=== PATIENT | female | born 1945 | race African-American/Black ===

== ENCOUNTER 2017-09-29 16:47 | Inpatient (IN) | payer MEDICARE, OTHER ==
[~2017-09-29] VITALS: Ht 152.4 cm; Wt 73.4 kg
[~2017-09-29 16:47] MED LIST: 1-ME1LIQ PO; ARIC5TAB PO; LEXA10TA PO; LISI-587 PO; MACR100C PO; TAB-TAB PO
[2017-09-29 17:14] VITALS: BP 134/64; PULSE 104; RESP 19; O2SAT 97
[2017-09-29] MEDS ORDERED: LATA0.002 EACH EYE (17:39)
[2017-09-29] MEDS ORDERED: MELO7.5T27 PO (17:39)
[2017-09-29] MEDS ORDERED: AMLO10TA2 PO (17:39)
[2017-09-29] MEDS ORDERED: DONE10TA7 PO (17:39)
[2017-09-29] MEDS ORDERED: ESCI20TA PO (17:39)
--- NOTE | 2017-09-29 18:07 | RADRPT ---
EXAM DATE/TIME: 09/29/2017 17:50 [facility] COMPARISON: No previous studies available for comparison. INDICATIONS : Fever and short of breath. MEDICAL HISTORY : None. SURGICAL HISTORY : None. ENCOUNTER: Initial ACUITY: 2 days PAIN SCORE: 0/10 LOCATION: Bilateral chest FINDINGS: Mild cardiomegaly with minimal interstitial prominence. No alveolar consolidation. No pleural effus ion. No pneumothorax.. Osseous structures are intact. CONCLUSION: Possible mild failure without consolidation. Jon Plata MD FACR on September 29, 2017 at 18:04 Board Certified Radiologist. This report was verified electronically.
[2017-09-29 18:20] VITALS: O2SAT 97
--- NOTE | 2017-09-29 18:23 | PD ---
HPI Chief Complaint: Altered Mental Status Time Seen by Provider: 17:13 Travel History International Travel<30 days: No Contact w/Intl Traveler<30days: No Traveled to known affect area: No History of Present Illness HPI This is a 72-year-old female with history of dementia, who presents from home after she was noted to have a fever with decreased mentation. The patient has a software product manager at home who reportedly took her temperature noted to be 102. They gave Tylenol and brought her temperature down to 99.8. The patient has not had any recent URI symptoms. There is no report of urinary symptoms. The patient is unable to give clear history. She knows her name she knows she is at the hospital but does not know the year the day of the week. Reportedly she was at her son's house overnight and when she returned home 2 days when the fever was noted. PFSH Past Medical History Arthritis: Yes Autoimmune Disease: Yes Anxiety: Yes Depression: Yes Cardiovascular Problems: No Diminished Hearing: No Gastrointestinal Disorders: No Hypertension: Yes Implanted Vascular Access Dvce: No Musculoskeletal: Yes Neurologic: Yes Psychiatric: Yes ?: Not Menopausal: Yes Past Surgical History Appendectomy: Yes Gynecologic Surgery: Yes Hysterectomy: Yes Joint Replacement: Yes (R KNEE) Other Surgery: Yes Social History Alcohol Use: No Tobacco Use: No Substance Use: No Allergies-Medications (Allergen,Severity, Reaction): Coded Allergies: No Known Allergies (Verified Adverse Reaction, Unknown, 09/29/17) Reported Meds & Prescriptions Reported Meds & Active Scripts Active Reported Latanoprost Opth Drops (Latanoprost) 0.005% Drops 1 Drop EACH EYE HS Refrigerate until opened. Donepezil 10 Mg Tab 10 Mg PO HS Meloxicam 7.5 Mg Tab 7.5 Mg PO DAILY Escitalopram (Escitalopram Oxalate) 20 Mg Tab 20 Mg PO DAILY Amlodipine (Amlodipine Besylate) 10 Mg Tab 10 Mg PO DAILY Review of Systems ROS Limitations: Altered Mental Status (History of dementia unable to give clear history. Review of systems were from the software product manager and the paramedics.) Except as stated in HPI: all other systems reviewed are Neg General / Constitutional: Positive: Fever Cardiovascular: No: Chest Pain or Discomfort Respiratory: No: Cough, Shortness of Breath Gastrointestinal: No: Nausea, Vomiting, Diarrhea, Abdominal Pain Genitourinary: No: Dysuria, Pelvic Pain Neurologic: Positive: Change in Mentation (Slightly more confused than baseline according to software product manager), No: Weakness, Headache Physical Exam Narrative GENERAL: Well-developed well-nourished female in no acute respiratory distress. SKIN: Focused skin assessment warm/dry. HEAD: Atraumatic. Normocephalic. EYES: No scleral icterus. No injection or drainage. ENT: No nasal bleeding or discharge. Mucous membranes pink and moist. NECK: Trachea midline. Supple. CARDIOVASCULAR: Regular rate and rhythm. No murmur appreciated. RESPIRATORY: No accessory muscle use. Clear to auscultation. Breath sounds equal bilaterally. GASTROINTESTINAL: Abdomen soft, non-tender, nondistended. Hepatic and splenic margins not palpable. MUSCULOSKELETAL: No obvious deformities. No clubbing. No cyanosis. No edema. NEUROLOGICAL: Awake and confused. No obvious cranial nerve deficits. Motor grossly within normal limits. Normal speech. Data Data Last Documented VS Vital Signs Date Time Temp Pulse Resp B/P (MAP) Pulse Ox O2 Delivery O2 Flow Rate FiO2 09/29/17 18:20 97 Room Air 09/29/17 17:14 104 19 Orders Orders Electrocardiogram (09/29/17 17:45) Complete Blood Count With Diff (09/29/17 17:45) Comprehensive Metabolic Panel (09/29/17 17:45) Blood Culture (09/29/17 17:45) Urinalysis - C+S If Indicated (09/29/17 17:45) Influenzae A/B Antigen (09/29/17 17:45) Chest, Single Ap (09/29/17 17:45) Iv Access Insert/Monitor (09/29/17 17:45) Ecg Monitoring (09/29/17 17:45) Oximetry (09/29/17 17:45) Lactic Acid Sepsis Protocol (09/29/17 17:45) Labs Laboratory Tests Test 09/29/17 17:40 White Blood Count 18.4 TH/MM3 Red Blood Count 4.00 MIL/MM3 Hemoglobin 10.9 GM/DL Hematocrit 32.0 % Mean Corpuscular Volume 80.2 FL Mean Corpuscular Hemoglobin 27.3 PG Mean Corpuscular Hemoglobin Concent 34.0 % Red Cell Distribution Width 16.6 % Platelet Count 310 TH/MM3 Mean Platelet Volume 8.3 FL Neutrophils (%) (Auto) 89.8 % Lymphocytes (%) (Auto) 6.6 % Monocytes (%) (Auto) 3.5 % Eosinophils (%) (Auto) 0.0 % Basophils (%) (Auto) 0.1 % Neutrophils # (Auto) 16.5 TH/MM3 Lymphocytes # (Auto) 1.2 TH/MM3 Monocytes # (Auto) 0.7 TH/MM3 Eosinophils # (Auto) 0.0 TH/MM3 Basophils # (Auto) 0.0 TH/MM3 CBC Comment DIFF FINAL Differential Comment Blood Urea Nitrogen 21 MG/DL Creatinine 0.83 MG/DL Random Glucose 126 MG/DL Total Protein 8.7 GM/DL Albumin 2.2 GM/DL Calcium Level 9.0 MG/DL Alkaline Phosphatase 114 U/L Aspartate Amino Transf (AST/SGOT) 23 U/L Alanine Aminotransferase (ALT/SGPT) 13 U/L Total Bilirubin 0.6 MG/DL Sodium Level 134 MEQ/L Potassium Level 3.4 MEQ/L Chloride Level 100 MEQ/L Carbon Dioxide Level 21.7 MEQ/L Anion Gap 12 MEQ/L Estimat Glomerular Filtration Rate 82 ML/MIN Lactic Acid Level 1.0 mmol/L MDM Medical Decision Making Medical Screen Exam Complete: Yes Emergency Medical Condition: Yes Differential Diagnosis UTI versus upper respiratory infection versus metabolic derangement Narrative Course 72-year-old female sent in from home for complaints of fever and decreased mentation. Patient's temp was 102 at home. White count is 18,000. Urinalysis is pending at this time. Chest x-ray shows no evidence of acute infiltrate. I anticipate she will probably need to be admitted. She was signed out to Dr. Ana Galdamez, physician replaced me at change of shift. He will evaluate her urinalysis and make the appropriate disposition pending. Diagnosis Primary Impression: Fever Additional Impression: Leukocytosis Santos Alfaro MD Sep 29, 2017 18:23
[2017-09-29 18:48] LABS: AUTOMATED NEUTROPHIL # 16.5 TH/MM3 (1.8-7.7); BASOPHIL % 0.1 % (0.0-2.0); HEMOGLOBIN 10.9 GM/DL (11.6-15.3); LYMPH % 6.6 % (9.0-44.0); LYMPHOCYTE # 1.2 TH/MM3 (1.0-4.8); MEAN CELL VOLUME 80.2 FL (80.0-100.0); MEAN CORPUSCULAR HEMOGLOBIN 27.3 PG (27.0-34.0); MEAN PLATELET VOLUME 8.3 FL (7.0-11.0); MONO % 3.5 % (0.0-8.0); MONOCYTE # 0.7 TH/MM3 (0-0.9); NEUT % 89.8 % (16.0-70.0); PLATELET COUNT 310 TH/MM3 (150-450); RED CELL DISTRIBUTION WIDTH 16.6 % (11.6-17.2); WHITE BLOOD COUNT 18.4 TH/MM3 (4.0-11.0)
[2017-09-29 18:58] LABS: ALBUMIN 2.2 GM/DL (3.4-5.0); ALT (GPT) 13 U/L (10-53); AST (GOT) 23 U/L (15-37); BICARBONATE 21.7 MEQ/L (21.0-32.0); BLOOD UREA NITROGEN 21 MG/DL (7-18); CHLORIDE 100 MEQ/L (98-107); CREATININE 0.83 MG/DL (0.50-1.00); GLOMERULAR FILTRATION RATE 82 ML/MIN (>89); GLUCOSE,RANDOM 126 MG/DL (74-106); SODIUM (NA) 134 MEQ/L (136-145)
[2017-09-29 19:01] LABS: ALKALINE PHOSPHATASE 114 U/L (45-117); TOTAL BILIRUBIN ADULT 0.6 MG/DL (0.2-1.0); TOTAL PROTEIN 8.7 GM/DL (6.4-8.2)
--- NOTE | 2017-09-29 19:34 | PD ---
Physical Exam Date Seen by Provider: Sep 29, 2017 Time Seen by Provider: 19:32 Narrative The patient is a 72-year-old female who was initially evaluated by the previous physician. Please refer to the initial history, physical, diagnostic evaluation , treatment modality plan. The patient was signed out at 7:15 PM with UA pending for altered mental status with underlying history of dementia. Data Data Last Documented VS Vital Signs Date Time Temp Pulse Resp B/P (MAP) Pulse Ox O2 Delivery O2 Flow Rate FiO2 09/29/17 20:31 125 26 136/61 (86) 95 Room Air 09/29/17 19:35 100.8 Orders Orders Electrocardiogram (09/29/17 17:45) Complete Blood Count With Diff (09/29/17 17:45) Comprehensive Metabolic Panel (09/29/17 17:45) Blood Culture (09/29/17 17:45) Urinalysis - C+S If Indicated (09/29/17 17:45) Influenzae A/B Antigen (09/29/17 17:45) Chest, Single Ap (09/29/17 17:45) Iv Access Insert/Monitor (09/29/17 17:45) Ecg Monitoring (09/29/17 17:45) Oximetry (09/29/17 17:45) Lactic Acid Sepsis Protocol (09/29/17 17:45) Acetaminophen (Tylenol) (09/29/17 19:45) Urine Culture (09/29/17 17:45) Ct Abd/Pel W Iv Contrast(Rout) (09/29/17 ) Ct Brain W/O Iv Contrast(Rout) (09/29/17 ) Acetaminophen Supp (Tylenol Supp) (09/29/17 20:45) Iohexol 350 Inj (Omnipaque 350 Inj) (09/29/17 21:20) Aspirin Supp (Aspirin Supp) (09/29/17 21:45) Ceftriaxone Inj (Rocephin Inj) (09/29/17 21:45) Labs Laboratory Tests Test 09/29/17 17:40 09/29/17 17:45 White Blood Count 18.4 TH/MM3 Red Blood Count 4.00 MIL/MM3 Hemoglobin 10.9 GM/DL Hematocrit 32.0 % Mean Corpuscular Volume 80.2 FL Mean Corpuscular Hemoglobin 27.3 PG Mean Corpuscular Hemoglobin Concent 34.0 % Red Cell Distribution Width 16.6 % Platelet Count 310 TH/MM3 Mean Platelet Volume 8.3 FL Neutrophils (%) (Auto) 89.8 % Lymphocytes (%) (Auto) 6.6 % Monocytes (%) (Auto) 3.5 % Eosinophils (%) (Auto) 0.0 % Basophils (%) (Auto) 0.1 % Neutrophils # (Auto) 16.5 TH/MM3 Lymphocytes # (Auto) 1.2 TH/MM3 Monocytes # (Auto) 0.7 TH/MM3 Eosinophils # (Auto) 0.0 TH/MM3 Basophils # (Auto) 0.0 TH/MM3 CBC Comment DIFF FINAL Differential Comment Blood Urea Nitrogen 21 MG/DL Creatinine 0.83 MG/DL Random Glucose 126 MG/DL Total Protein 8.7 GM/DL Albumin 2.2 GM/DL Calcium Level 9.0 MG/DL Alkaline Phosphatase 114 U/L Aspartate Amino Transf (AST/SGOT) 23 U/L Alanine Aminotransferase (ALT/SGPT) 13 U/L Total Bilirubin 0.6 MG/DL Sodium Level 134 MEQ/L Potassium Level 3.4 MEQ/L Chloride Level 100 MEQ/L Carbon Dioxide Level 21.7 MEQ/L Anion Gap 12 MEQ/L Estimat Glomerular Filtration Rate 82 ML/MIN Lactic Acid Level 1.0 mmol/L Urine Color YELLOW Urine Turbidity HAZY Urine pH 6.0 Urine Specific [place] 1.026 Urine Protein 100 mg/dL Urine Glucose (UA) NEG mg/dL Urine Ketones NEG mg/dL Urine Occult Blood NEG Urine Nitrite NEG Urine Bilirubin NEG Urine Urobilinogen 2.0 MG/DL Urine Leukocyte Esterase SMALL Urine RBC 3 /hpf Urine WBC 3 /hpf Urine Squamous Epithelial Cells 1 /hpf Urine Amorphous Sediment MOD Urine Bacteria RARE /hpf Urine Hyaline Casts 6 /lpf Urine Mucus FEW /lpf Microscopic Urinalysis Comment CATH-CULTURE IND MDM Medical Record Reviewed: Yes Supervised Visit with GERSON: No Interpretation(s) EKG reveals sinus tachycardia with a heart rate of 111. Nonspecific T wave changes. Short ID interval of 160 ms. Differential Diagnosis Differential diagnosis includes UTI, delirium, pneumonia, influenza, hyponatremia, dehydration, acute kidney injury, sepsis. Narrative Course The patient was initially evaluated by the previous physician. Please refer to the initial history, physical, diagnostic evaluation, and treatment modality plan. The patient was signed out at 7 PM with UA pending. Temperature was checked, was 100.8. The patient was administered Tylenol 650 mg orally. The UA reveals leukocyte esterase and bacteria, but only 3 wbc's. Chest x-ray reveals questionable mild pulmonary edema, white count is elevated greater than 18, lactic acid is normal. The patient is reevaluated, there is no evidence of sacral decubitus ulcer, well-healed anterior knee scars, however, she did have some lower left quadrant abdominal pain. Therefore, CT the abdomen and pelvis with IV contrast was ordered. CT the brain was also ordered, reveals questionable ischemic changes and anterior lung, Therefore, the patient was administered aspirin suppository. There were no family members in the room to assess whether her current exam is baseline or if there are acute changes. CT of the abdomen and pelvis is negative, no evidence of diverticulitis. No source of infection. Blood cultures are pending. The patient will be admitted to the on-call medical service, may benefit from MRI and follow-up blood cultures. The on-call medical service was paged for admission. Sepsis Criteria SIRS Criteria (2 or more): Heart rate over 90, WBC > 67339, < 4000 or > 10% bands Physician Communication Physician Communication The on-call medical service was paged for admission. Diagnosis Primary Impression: Fever Qualified Codes: R50.9 - Fever, unspecified Additional Impressions: Leukocytosis Qualified Codes: D72.829 - Elevated white blood cell count, unspecified SIRS (systemic inflammatory response syndrome) CVA (cerebral vascular accident) Qualified Codes: I63.9 - Cerebral infarction, unspecified Altered mental status Qualified Codes: R41.0 - Disorientation, unspecified Admitting Information Admitting Physician Requests: Admit Condition: Stable Stoney Galdamez MD Sep 29, 2017 19:34
[2017-09-29 19:35] VITALS: TEMP 100.8
[2017-09-29 19:39] LABS: AMORPHOUS SEDIMENT, URINE MOD; BACTERIA, URINE RARE /hpf; BILIRUBIN, URINE NEG (NEG); BLOOD, URINE NEG (NEG); GLUCOSE,URINE NEG (NEG); HYALINE CAST, URINE 6 /lpf (RARE); KETONE, URINE NEG (NEG); MUCUS URINE FEW /lpf (OCC); NITRITE,URINE NEG (NEG); SQUAMOUS EPITHELIAL CELL URINE 1 /hpf (0-5); URINE COLOR YELLOW (YELLW/STRAW); URINE LEUKOCYTE ESTERASE SMALL (NEG)
[2017-09-29] MEDS ORDERED: ACETAMINOPHEN 325 MG TAB PO ONE (19:45)
[2017-09-29 20:31] VITALS: BP 136/61; PULSE 125; RESP 26; O2SAT 95
[2017-09-29] MEDS ORDERED: ACETAMINOPHEN 650 MG SUPP RECTAL ONE (20:45)
[2017-09-29] MEDS ORDERED: IOHEXOL 350 MG/ML 10 ML VIAL (for RAD DIAG) IVCONTRAST ONE (21:20)
--- NOTE | 2017-09-29 21:37 | RADRPT ---
EXAM DATE/TIME: 09/29/2017 21:16 [facility] COMPARISON: No previous studies available for comparison. INDICATIONS : Altered mental status. RADIATION DOSE: 35.19 CTDIvol (mGy) MEDICAL HISTORY : Dementia. Hypertension. SURGICAL HISTORY : Appendectomy. Hysterectomy. ENCOUNTER: Initial ACUITY: 1 day PAIN SCALE: Non-responsive LOCATION: cranial TECHNIQUE: Multiple contiguous axial images were obtained of the head. Using automated exposure control and adj ustment of the mA and/or kV according to patient size, radiation dose was kept as low as reasonably a chievable to obtain optimal diagnostic quality images. DICOM format image data is available electro nically for review and comparison. FINDINGS: CEREBRUM: The ventricles are normal for age. No evidence of midline shift, mass lesion, hemorrhage or acute in farction. Possible ischemic changes anterior limb internal capsule left side. No extra-axial fluid c ollections are seen. POSTERIOR FOSSA: The cerebellum and brainstem are intact. The 4th ventricle is midline. The cerebellopontine angle i s unremarkable. EXTRACRANIAL: The visualized portion of the orbits is intact. SKULL: The calvaria is intact. No evidence of skull fracture. CONCLUSION: Probable ischemic changes in as described above. MRI would be of benefit. Jon Plata MD FACR on September 29, 2017 at 21:33 Board Certified Radiologist. This report was verified electronically.
--- NOTE | 2017-09-29 21:42 | RADRPT ---
EXAM DATE/TIME: 09/29/2017 21:19 [facility] COMPARISON: No previous studies available for comparison. INDICATIONS : Fever with altered mental status. IV CONTRAST: 94 cc Omnipaque 350 (iohexol) IV ORAL CONTRAST: No oral contrast ingested. RADIATION DOSE: 15.83 CTDIvol (mGy) MEDICAL HISTORY : Dementia. Hypertension. SURGICAL HISTORY : Appendectomy. Hysterectomy. ENCOUNTER: Initial ACUITY: 1 day PAIN SCALE: Non-responsive LOCATION: abdomen TECHNIQUE: Volumetric scanning of the abdomen and pelvis was performed. Using automated exposure control and ad justment of the mA and/or kV according to patient size, radiation dose was kept as low as reasonably achievable to obtain optimal diagnostic quality images. DICOM format image data is available electro nically for review and comparison. FINDINGS: LOWER LUNGS: The visualized lower lungs are clear. LIVER: Homogeneous density without lesion. There is no dilation of the biliary tree. No calcified gallston es. SPLEEN: Normal size without lesion. PANCREAS: Within normal limits. KIDNEYS: Nonobstructing 7 mm right renal stone ADRENAL GLANDS: Within normal limits. VASCULAR: There is no aortic aneurysm. BOWEL/MESENTERY: Fluid-filled ascending colon. Multiple diverticuli in the descending colon. I don't see inflammator y changes. ABDOMINAL WALL: Within normal limits. RETROPERITONEUM: There is no lymphadenopathy. BLADDER: No wall thickening or mass. REPRODUCTIVE: Within normal limits. INGUINAL: There is no lymphadenopathy or hernia. MUSCULOSKELETAL: Significant degenerative changes of the lumbar spine. CONCLUSION: Do not see the etiology of fever with altered mental status.. Diverticuli sigmoid co maira without diverticulitis. No gallstones Jon Plata MD FACR on September 29, 2017 at 21:36 Board Certified Radiologist. This report was verified electronically.
[2017-09-29] MEDS ORDERED: cefTRIAXone INJ 1,000 MG in SODIUM CHLORIDE 0.9% INJ 100 ML IV ONE (21:45)
[2017-09-29] MEDS ORDERED: ASPIRIN 300 MG SUPP RECTAL ONE (21:45)
--- NOTE | 2017-09-29 22:11 | HHI.HP ---
[facility] Primary Care Physician Jordy Amaya MD Admission Diagnosis CVA, febrile illness, leukocytosis, SIRS, UTI Diagnoses: (1) Sepsis Diagnosis: Principal (2) Encephalopathy Diagnosis: Principal (3) UTI (urinary tract infection) Diagnosis: Principal (4) CVA (cerebral vascular accident) Diagnosis: Principal Travel History International Travel<30 Days: No Contact w/Intl Traveler <30 Da: No Traveled to Known Affected Are: No History of Present Illness This is a 72-year-old female with a PMH of Anxiety, Depression, Dementia and HTN who is brought to the ER by Trading Manager secondary to AMS and fever of 102. Patient unable to provide any history at this time, history obtained from records and report of scientific technical writer. On arrival, BP 134/64, HR 104, O2 sat 97% on RA, Temp 100.8. WBC 18.4. BUN 21. GFR 82. Lactic Acid normal. UA positive for UTI. CXR possible mild failure without consolidation. CT Abdomen/Pelvis no acute findings. CT Head probable ischemic changes anterior limb internal capsule on the left. S/p Blood Cultures, Rocephin, IVF in ER. Review of Systems Except as stated in HPI: all other systems reviewed are Neg ROS: Unable to obtain secondary to dementia and AMS. Past Family Social History Past Medical History PMH: Anxiety, Depression, Dementia and HTN Past Surgical History PAST SURGICAL HISTORY: Appendectomy, Hysterectomy, Right knee Replacement Allergies: Coded Allergies: No Known Allergies (Verified Allergy, Unknown, 09/29/17) Family History PAST FAMILY HISTORY: Reviewed. No h/o DM or CAD Social History PAST SOCIAL HISTORY: Negative for alcohol, tobacco or drugs. Physical Exam Vital Signs Vital Signs Date Time Temp Pulse Resp B/P (MAP) Pulse Ox O2 Delivery O2 Flow Rate FiO2 09/29/17 20:31 125 26 136/61 (86) 95 Room Air 09/29/17 19:35 100.8 09/29/17 18:20 97 Room Air 09/29/17 17:14 104 19 134/64 (87) 97 Room Air Physical Exam PE: GENERAL: Elderly black female in no acute distress. Confused HEENT: PERRLA, EOMI. No scleral icterus or conjunctival pallor. No lid lag or facial droop. CARDIOVASCULAR: Regular rate and rhythm. No obvious murmurs to auscultation. No chest tenderness to palpation. RESPIRATORY: No obvious rhonchi or wheezing. Clear to auscultation. Breath sounds equal bilaterally. GASTROINTESTINAL: Abdomen soft, non-tender, nondistended. BS normal. MUSCULOSKELETAL: Extremities without clubbing, cyanosis, or edema. No obvious deformities. NEUROLOGICAL: Awake, oriented to person only, confused. No focal neurologic deficits. Moving both upper and lower extremities spontaneously. Laboratory Laboratory Tests Test 09/29/17 17:40 09/29/17 17:45 White Blood Count 18.4 Red Blood Count 4.00 Hemoglobin 10.9 Hematocrit 32.0 Mean Corpuscular Volume 80.2 Mean Corpuscular Hemoglobin 27.3 Mean Corpuscular Hemoglobin Concent 34.0 Red Cell Distribution Width 16.6 Platelet Count 310 Mean Platelet Volume 8.3 Neutrophils (%) (Auto) 89.8 Lymphocytes (%) (Auto) 6.6 Monocytes (%) (Auto) 3.5 Eosinophils (%) (Auto) 0.0 Basophils (%) (Auto) 0.1 Neutrophils # (Auto) 16.5 Lymphocytes # (Auto) 1.2 Monocytes # (Auto) 0.7 Eosinophils # (Auto) 0.0 Basophils # (Auto) 0.0 CBC Comment DIFF FINAL Differential Comment Blood Urea Nitrogen 21 Creatinine 0.83 Random Glucose 126 Total Protein 8.7 Albumin 2.2 Calcium Level 9.0 Alkaline Phosphatase 114 Aspartate Amino Transf (AST/SGOT) 23 Alanine Aminotransferase (ALT/SGPT) 13 Total Bilirubin 0.6 Sodium Level 134 Potassium Level 3.4 Chloride Level 100 Carbon Dioxide Level 21.7 Anion Gap 12 Estimat Glomerular Filtration Rate 82 Lactic Acid Level 1.0 Urine Color YELLOW Urine Turbidity HAZY Urine pH 6.0 Urine Specific [place] 1.026 Urine Protein 100 Urine Glucose (UA) NEG Urine Ketones NEG Urine Occult Blood NEG Urine Nitrite NEG Urine Bilirubin NEG Urine Urobilinogen 2.0 Urine Leukocyte Esterase SMALL Urine RBC 3 Urine WBC 3 Urine Squamous Epithelial Cells 1 Urine Amorphous Sediment MOD Urine Bacteria RARE Urine Hyaline Casts 6 Urine Mucus FEW Microscopic Urinalysis Comment CATH-CULTURE IND Date/Time Source Procedure Growth Status 09/29/17 17:55 Blood Peripheral Aerobic Blood Culture Pending Received 09/29/17 17:55 Blood Peripheral Anaerobic Blood Culture Pending Received 09/29/17 18:00 Nasal Aspirate Influenza Types A,B Antigen (CYNTHIA) - Final NEGATIVE FOR FLU A AND B ANTIGEN.... Complete 09/29/17 17:45 Urine Catheterized Urine Urine Culture Pending Received Result Diagram: 09/29/17 1740 09/29/17 1740 Caprini VTE Risk Assessment Caprini VTE Risk Assessment: Mod/High Risk (score >= 2) Caprini Risk Assessment Model Point Value = 1 Point Value = 2 Point Value = 3 Point Value = 5 Age 41-60 Minor surgery BMI > 25 kg/m2 Swollen legs Varicose veins or History of unexplained or recurrent spontaneous Oral contraceptives or hormone replacement Sepsis (< 1 month) Serious lung disease, including pneumonia (< 1 month) Abnormal pulmonary function Acute myocardial infarction Congestive heart failure (< 1 month) History of inflammatory bowel disease Medical patient at bed rest Age 61-74 Arthroscopic surgery Major open surgery (> 45 min) Laparoscopic surgery (> 45 min) Malignancy Confined to bed (> 72 hours) Immobilizing plaster cast Central venous access Age >= 75 History of VTE Family history of VTE Factor V Leiden Prothrombin [id number] Lupus anticoagulant Anticardiolipin antibodies Elevated serum homocysteine Heparin-induced thrombocytopenia Other congenital or acquired thrombophilia Stroke (< 1 month) Elective arthroplasty Hip, pelvis, or leg fracture Acute spinal cord injury (< 1 month) Prophylaxis Regimen Total Risk Factor Score Risk Level Prophylaxis Regimen 0-1 Low Early ambulation 2 Moderate Order ONE of the following: *Sequential Compression Device (SCD) *Heparin 5000 units SQ BID 3-4 Higher Order ONE of the following medications: *Heparin 5000 units SQ TID *Enoxaparin/Lovenox 40 mg SQ daily (WT < 150 kg, CrCl > 30 mL/min) *Enoxaparin/Lovenox 30 mg SQ daily (WT < 150 kg, CrCl > 10-29 mL/min) *Enoxaparin/Lovenox 30 mg SQ BID (WT < 150 kg, CrCl > 30 mL/min) AND/OR *Sequential Compression Device (SCD) 5 or more Highest Order ONE of the following medications: *Heparin 5000 units SQ TID (Preferred with Epidurals) *Enoxaparin/Lovenox 40 mg SQ daily (WT < 150 kg, CrCl > 30 mL/min) *Enoxaparin/Lovenox 30 mg SQ daily (WT < 150 kg, CrCl > 10-29 mL/min) *Enoxaparin/Lovenox 30 mg SQ BID (WT < 150 kg, CrCl > 30 mL/min) AND *Sequential Compression Device (SCD) Assessment and Plan Problem List: (1) Encephalopathy ICD Code: G93.40 - Encephalopathy, unspecified (2) Sepsis ICD Code: A41.9 - Sepsis, unspecified organism (3) UTI (urinary tract infection) ICD Code: N39.0 - Urinary tract infection, site not specified (4) CVA (cerebral vascular accident) ICD Code: I63.9 - Cerebral infarction, unspecified Assessment and Plan A/P: 1. Encephalopathy: Multifactorial-Dementia/Sepsis/UTI/CVA. Neuro Checks. PT for eval/tx. Case Management for assistance w/ placement as needed 2. Sepsis: Temp 100.8, HR 104, WBC 18.4, Source-UTI. S/p Blood/Urine Cultures , continue IV Rocephin, follow up cultures. CXR w/ no consolidation, CT Abd/ Pelvis negative for acute findings, images reviewed by me. 3. UTI: U/a w/ UTI, follow up cultures as above. IV Rocephin, IVF for hydration. 4. CVA: CT Head w/ probable ischemic changes anterior limb internal capsule on left, images reviewed by me. Neuro Checks. Check MRI, ASA, Statin, Consult Neurology for further evaluation/recommendations. 5. DVT Prophylaxis: SCD/Teds. 6. Social work for d/c planning as needed. 7. Case discussed w/ ER physician at length, labs/records/imaging reviewed by me. Physician Certification 2 Midnight Certification Type: Admission for Inpatient Services Order for Inpatient Services The services are ordered in accordance with Medicare regulations or non- Medicare payer requirements, as applicable. In the case of services not specified as inpatient-only, they are appropriately provided as inpatient services in accordance with the 2-midnight benchmark. Estimated LOS (days): 2 days is the estimated time the patient will need to remain in the hospital, assuming treatment plan goals are met and no additional complications. Post-Hospital Plan: Not yet determined Deb Gauthier MD Sep 29, 2017 22:11
[2017-09-29] MEDS ORDERED: ENALAPRILAT 1.25 MG/ML VIAL IV PUSH PRN (22:15)
[2017-09-29] MEDS ORDERED: BISACODYL 10 MG SUPP RECTAL PRN (22:15)
[2017-09-29] MEDS ORDERED: GLUCAGON 1 MG/ML VIAL OTHER PRN (22:15)
[2017-09-29] MEDS ORDERED: DEXTROSE 50% IN WATER 50 ML VIAL(D50) IV PUSH PRN (22:15)
[2017-09-29] MEDS ORDERED: ACETAMINOPHEN/HYDROcodone 325 MG/10 MG TAB PO PRN (22:15)
[2017-09-29] MEDS ORDERED: SODIUM CHLORIDE 0.9% FLUSH 10 ML FLUSH IV FLUSH PRN ×2 (22:15)
[2017-09-29] MEDS ORDERED: SENNOSIDES 8.6 MG TAB PO PRN (22:15)
[2017-09-29] MEDS ORDERED: ACETAMINOPHEN 325 MG TAB PO PRN (22:15)
[2017-09-29] MEDS ORDERED: LACTULOSE SYRUP 20 GM/30 ML CUP PO PRN (22:15)
[2017-09-29] MEDS ORDERED: ONDANSETRON HCL 4 MG/2 ML VIAL IVP PRN (22:15)
[2017-09-29] MEDS ORDERED: MAGNESIUM HYDROXIDE SUSP 30 ML CUP PO PRN (22:15)
[2017-09-29] MEDS ORDERED: ACETAMINOPHEN/HYDROcodone 325 MG/5 MG TAB PO PRN (22:15)
[2017-09-29 23:00] VITALS: PULSE 125
[2017-09-29] MEDS: SODIUM CHLOR 0.9% 1000 ML INJ 1,000 ML IV SCH (23:28)
[2017-09-30] VITALS (19 sets, daily range): BP systolic 109–179; BP diastolic 58–83; PULSE 74–137; RESP 16–44; TEMP 98–102.9; O2SAT 93–100
[2017-09-30] MEDS ORDERED: METOPROLOL TARTRATE 5 MG/5 ML VIAL IV PUSH ONE (01:20)
[2017-09-30] MEDS ORDERED: POTASSIUM CHLOR 20 MEQ PREMIX 100 ML IV ONE (01:20)
[2017-09-30] MEDS ORDERED: METOPROLOL TARTRATE 5 MG/5 ML VIAL ONE (01:24)
[2017-09-30] MEDS ORDERED: POTASSIUM CHLOR 20 MEQ PREMIX 100 ML ONE (01:25)
[2017-09-30] MEDS: INSULIN ASPART SUPPLEMENTAL SCALE SQ SCH ×4 (08:00→20:31)
[2017-09-30] MEDS: DOCUSATE SODIUM 50 MG/SENNA 8.6 MG TAB PO SCH ×2 (09:00→20:31)
[2017-09-30] MEDS: SODIUM CHLORIDE 0.9% FLUSH 10 ML FLUSH IV FLUSH SCH ×2 (09:00→20:32)
[2017-09-30] MEDS ORDERED: SODIUM CHLORIDE 0.9% FLUSH 10 ML FLUSH IV FLUSH SCH (09:00)
[2017-09-30] MEDS: ASPIRIN 81 MG CHEW TAB PO SCH (09:00)
[2017-09-30] MEDS ORDERED: Vancomycin Consult Pharmacy 1 EA OTHER SCH (10:30)
[2017-09-30] MEDS ORDERED: MIDAZOLAM HCL 5 MG/5 ML VIAL IV PUSH ONE (10:30)
[2017-09-30] MEDS: PROPOFOL 1000 MG/100 ML INJ 100 ML IV PRN ×3 (10:30→20:30)
[2017-09-30] MEDS ORDERED: MIDAZOLAM HCL 5 MG/ML VIAL (1 ML) ONE (10:31)
[2017-09-30] MEDS ORDERED: ROCURONIUM INJ 50 MG/5 ML VIAL ONE (10:32)
--- NOTE | 2017-09-30 10:38 | HHI.PR ---
Subjective Remarks Patient seen and examined this morning during a HaliCat. This was called due to worsening mental status, worsening respiration rate, elevating blood pressure and elevating temperature. Per nurse report the patient became unresponsive though is arousable. Likely CVA as original cause of altered mental status seen on CT, MRI still pending. Blood cultures are pansensitive for gram-positive cocci, urine cultures are still pending. UA consistent with a urinary tract infection. On exam patient was not following any commands, noticeable right-sided facial droop. Patient was noncommunicative. New murmur noted on exam that is holosystolic. Discussed with HaliCat Team and patient will be transferred to the ICU under critical care. At this time concerned that patient will not be able to maintain elevated respiration rate. Most recent EKG showing sinus tachycardia, she is still tachycardiac at time of exam. Stat EKG, MRI once stable, and echo ordered at this time. Converted today's labs from routine to STAT. ABG pending Objective Vitals Vital Signs Date Time Temp Pulse Resp B/P (MAP) Pulse Ox O2 Delivery O2 Flow Rate FiO2 09/30/17 09:57 96 Nasal Cannula 2.00 09/30/17 04:00 128 09/30/17 04:00 100.5 129 22 172/78 (109) 95 09/30/17 01:30 102.7 137 22 179/82 (114) 93 09/30/17 00:00 125 09/30/17 00:00 101.2 130 20 179/83 (115) 94 09/29/17 23:00 125 09/29/17 22:52 09/29/17 20:31 125 26 136/61 (86) 95 Room Air 09/29/17 19:35 100.8 09/29/17 18:20 97 Room Air 09/29/17 17:14 104 19 134/64 (87) 97 Room Air I/O 09/29/17 09/29/17 09/29/17 09/30/17 09/30/17 09/30/17 07:00 15:00 23:00 07:00 15:00 23:00 Intake Total 100 ml Output Total 700 ml Balance -600 ml Intake Oral 0 ml IV Total 100 ml Output Urine Total 700 ml # Bowel Movements 0 Result Diagram: 09/29/17 17409/29/17 1740 Objective Remarks GENERAL: Patient is lying in bed, noncommunicative, arousable, with noticeable right-sided facial droop and rapid respiration rate SKIN: Warm and dry. HEAD: Atraumatic. Normocephalic. EYES: Pupils equal and round. No scleral icterus. No injection or drainage. ENT: No nasal bleeding or discharge. Mucous membranes pink and moist. NECK: Trachea midline. No JVD. CARDIOVASCULAR: Tachycardic rate with holosystolic ejection murmur RESPIRATORY: Rapid respiratory rate with accessory muscle use, breath sounds clear to auscultation bilaterally GASTROINTESTINAL: Abdomen soft, non-tender, nondistended. Hepatic and splenic margins not palpable. MUSCULOSKELETAL: Extremities without clubbing, cyanosis, or edema. No obvious deformities. NEUROLOGICAL: Awake unable to assess alertness as she is nonresponsive and not following commands. Right-sided facial droop. Not moving extremities. Unable to assess strength as she is not following commands. PSYCHIATRIC: Awake but unable to assess any further insight or judgment Medications and IVs Current Medications Medications (Trade) Dose Ordered Sig/Ganesh Route Start Time Stop Time Status Last Admin Ceftriaxone Sodium 1000 mg/ Sodium Chloride 100 ml @ 200 mls/hr Q24H IV 09/30/17 23:00 Sodium Chloride 1,000 ml @ 70 mls/hr [id number] IV 09/29/17 22:00 09/29/17 23:28 (Vasotec Inj) 1.25 mg Q4H PRN IV PUSH 09/29/17 22:15 (Aspirin Chew) 81 mg DAILY PO 09/30/17 09:00 (Lipitor) 10 mg HS PO 09/30/17 21:00 (NovoLOG SUPPLEMENTAL SCALE) 1 ACHS SQ 09/30/17 08:00 (D50w (Vial) Inj) 50 ml UNSCH PRN IV PUSH 09/29/17 22:15 (Glucagon Inj) 1 mg UNSCH PRN OTHER 09/29/17 22:15 (NS Flush) 2 ml UNSCH PRN IV FLUSH 09/29/17 22:15 (NS Flush) 2 ml BID IV FLUSH 09/30/17 09:00 (Zofran Inj) 4 mg Q6H PRN IVP 09/29/17 22:15 (Tylenol) 650 mg Q6H PRN PO 09/29/17 22:15 ([place]by 5-325 Mg) 1 tab Q4H PRN PO 09/29/17 22:15 ([place] 10-325 Mg) 1 tab Q4H PRN PO 09/29/17 22:15 (Megan-Colace) 1 tab BID PO 09/30/17 09:00 (Milk Of Magnesia Liq) 30 ml Q12H PRN PO 09/29/17 22:15 (Senokot) 17.2 mg Q12H PRN PO 09/29/17 22:15 (Dulcolax Supp) 10 mg DAILY PRN RECTAL 09/29/17 22:15 (Lactulose Liq) 30 ml DAILY PRN PO 09/29/17 22:15 A/P Problem List: (1) Encephalopathy ICD Code: G93.40 - Encephalopathy, unspecified (2) Sepsis ICD Code: A41.9 - Sepsis, unspecified organism (3) UTI (urinary tract infection) ICD Code: N39.0 - Urinary tract infection, site not specified (4) CVA (cerebral vascular accident) ICD Code: I63.9 - Cerebral infarction, unspecified (5) Bacteremia ICD Code: R78.81 - Bacteremia Assessment and Plan This is a 72-year-old -Beninese female with new CVA seen on CT, sepsis with urinary tract infection, and bacteremia. Evaluated during a HaliCat due to worsening respiratory failure, patient is being transferred to the ICU and placed under critical care management. Acute respiratory failure * Transfer to the ICU * Place under critical care management * Chest x-ray from 09/29 concerning for consolidation * Stat chest x-ray ordered at this time * ABG pending * EKG pending * CBC, CMP, troponins pending * Concerned that patient will not be able to maintain current respiratory rate and may need intubation CVA Head CT showing signs for likely CVA * MRI pending * Neurology consulted, regulations appreciated * Allow for permissive hypertension * Neurochecks Sepsis with UTI and Bacteremia * Leukocytosis at 18 * Bacteremic and all samples showing gram-positive cocci * Consulting infectious disease, regulations appreciated * Patient is currently being transferred to the ICU for critical care * Continue Rocephin * Starting vancomycin Sinus tachycardic with new onset murmur * Currently transferring to ICU under critical care * Echocardiogram ordered: Results pending * Stat EKG pending DVT prophylaxis * SCDs Discharge Planning Escalating current medical management, transferred to the ICU Dada Lewis MD, R3 Sep 30, 2017 10:38
[2017-09-30] MEDS ORDERED: ROCURONIUM INJ 50 MG/5 ML VIAL IV ONE (10:45)
[2017-09-30] MEDS ORDERED: VANCOMYCIN INJ 1,000 MG in SODIUM CHLOR 0.9% 250 ML INJ 250 ML IV SCH (10:45)
--- NOTE | 2017-09-30 10:50 | PD.PROCEDR ---
Procedure Note Procedure Endotracheal Intubation Diagnosis: acute encephalopathy Indications: as above Consent: not obtained since the procedure was emergent and there was no family available at bedside Anesthesia: midazolam 5 mg, rocuronium 100 mg Description of the Procedure: The patient was positioned in the sniffing position. Pre-oxygenation was performed using a BMV. Anesthesia was induced via rapid sequence. A Huang 2 blade was used for laryngoscopy and a Grade 1 view was obtained. A 7.5 mm cuffed endotracheal tube was inserted atraumatically through the vocal cords. Confirmation of correct endotracheal tube placement was made by equal and bilateral breath sounds and colorimetric CO2 detection. The endotracheal tube was secured at 22 cm at the teeth. There were no immediate complications noted. The patient remained hemodynamically stable throughout the procedure. A chest x-ray has been ordered. Antonio Hardin MD Sep 30, 2017 10:50
--- NOTE | 2017-09-30 10:50 | PD.CONS ---
HPI Service Critical Care Medicine Consult Requested By [facility] Reason for Consult Severe sepsis, respiratory failure Primary Care Physician Jordy Amaya MD History of Present Illness CVA, febrile illness, leukocytosis, SIRS, UTI Diagnoses: (1) Sepsis Diagnosis: Principal (2) Encephalopathy Diagnosis: Principal (3) UTI (urinary tract infection) Diagnosis: Principal (4) CVA (cerebral vascular accident) Diagnosis: Principal This is a 72-year-old female with a PMH of Anxiety, Depression, Dementia and HTN who is brought to the ER by Corrections Nurse secondary to AMS and fever of 102. Patient unable to provide any history at this time, history obtained from records and report of bleacher lard. On arrival, BP 134/64, HR 104, O2 sat 97% on RA, Temp 100.8. WBC 18.4. BUN 21. GFR 82. Lactic Acid normal. UA positive for UTI. CXR possible mild failure without consolidation. CT Abdomen/Pelvis no acute findings. CT Head probable ischemic changes anterior limb internal capsule on the left. S/p Blood Cultures positive for gram + cocci / bottles, Rocephin now, add Vancomycin. 09/30: Continued high grade fever, increasing leukocytosis. [place] [facility] [place] tachypnea. She is clenching her jaw and possibly seizing. Will intubate and ventilate for airway protection, proceed directly to lumbar puncture, broaden abx coverage. Review of Systems ROS Unable to obtain. No family. Past Family Social History Allergies: Coded Allergies: No Known Allergies (Verified Allergy, Unknown, 09/29/17) Physical Exam Vital Signs Vital Signs Date Time Temp Pulse Resp B/P (MAP) Pulse Ox O2 Delivery O2 Flow Rate FiO2 09/30/17 09:57 96 Nasal Cannula 2.00 09/30/17 04:00 128 09/30/17 04:00 100.5 129 22 172/78 (109) 95 09/30/17 01:30 102.7 137 22 179/82 (114) 93 09/30/17 00:00 125 09/30/17 00:00 101.2 130 20 179/83 (115) 94 09/29/17 23:00 125 09/29/17 22:52 09/29/17 20:31 125 26 136/61 (86) 95 Room Air 09/29/17 19:35 100.8 09/29/17 18:20 97 Room Air 09/29/17 17:14 104 19 134/64 (87) 97 Room Air Physical Exam P 120, BP 165/88, R 34 labored, T 102 Head: Normal, atraumatic. Neck: Chronically stiff. Jaw clenched. Lungs: Clear, no adventitious sounds. Labored, tachypnea. Heart: NL s1S2, No m,r, No JVD. Abdomen: Large, soft. No peritoneal irritation. BS present. No guarding. Extremities: Warm, well perfused. Neuro: Opens eyes. Does not track. Stiff limbs.DENISSE. Unresponsive to voice. Laboratory Laboratory Tests Test 09/29/17 17:40 09/29/17 17:45 09/30/17 01:26 White Blood Count 18.4 Red Blood Count 4.00 Hemoglobin 10.9 Hematocrit 32.0 Mean Corpuscular Volume 80.2 Mean Corpuscular Hemoglobin 27.3 Mean Corpuscular Hemoglobin Concent 34.0 Red Cell Distribution Width 16.6 Platelet Count 310 Mean Platelet Volume 8.3 Neutrophils (%) (Auto) 89.8 Lymphocytes (%) (Auto) 6.6 Monocytes (%) (Auto) 3.5 Eosinophils (%) (Auto) 0.0 Basophils (%) (Auto) 0.1 Neutrophils # (Auto) 16.5 Lymphocytes # (Auto) 1.2 Monocytes # (Auto) 0.7 Eosinophils # (Auto) 0.0 Basophils # (Auto) 0.0 CBC Comment DIFF FINAL Differential Comment Blood Urea Nitrogen 21 Creatinine 0.83 Random Glucose 126 Total Protein 8.7 Albumin 2.2 Calcium Level 9.0 Alkaline Phosphatase 114 Aspartate Amino Transf (AST/SGOT) 23 Alanine Aminotransferase (ALT/SGPT) 13 Total Bilirubin 0.6 Sodium Level 134 Potassium Level 3.4 Chloride Level 100 Carbon Dioxide Level 21.7 Anion Gap 12 Estimat Glomerular Filtration Rate 82 Lactic Acid Level 1.0 Urine Color YELLOW Urine Turbidity HAZY Urine pH 6.0 Urine Specific [place] 1.026 Urine Protein 100 Urine Glucose (UA) NEG Urine Ketones NEG Urine Occult Blood NEG Urine Nitrite NEG Urine Bilirubin NEG Urine Urobilinogen 2.0 Urine Leukocyte Esterase SMALL Urine RBC 3 Urine WBC 3 Urine Squamous Epithelial Cells 1 Urine Amorphous Sediment MOD Urine Bacteria RARE Urine Hyaline Casts 6 Urine Mucus FEW Microscopic Urinalysis Comment CATH-CULTURE IND Troponin I 0.71 Date/Time Source Procedure Growth Status 09/29/17 17:55 Blood Peripheral Aerobic Blood Culture - Preliminary Gram Positive Cocci Resulted 09/29/17 17:55 Anaerobic Blood Culture - Preliminary Gram Positive Cocci Resulted 09/29/17 18:00 Nasal Aspirate Influenza Types A,B Antigen (CYNTHIA) - Final NEGATIVE FOR FLU A AND B ANTIGEN.... Complete 09/29/17 17:45 Urine Catheterized Urine Urine Culture Pending Received Result Diagram: 09/29/17 17409/29/17 174 Assessment and Plan Assessment and Plan Assessment: 1. Severe sepsis. 1a. Bacterial Meningitis. 2. Encephalopathy, infectious. 3. Bacteremia - GPC Plan: 1. Add Vancomycin and Ampicillin to Ceftriaxone. 2. IV hydration. 3. Pepcid. 4. Intubation, mechanical ventilation. 5. Hold chemical DVT px until 24 hours after LP. 6. SCD 7. Droplet isolation. 8. PT/OT evaluation. Overall impression: Patient is critically ill with bacterial meningitis requiring intubation and mechanical ventilation. Critical care 45 mins aside from procedures Santos Dorman MD Sep 30, 2017 10:50
[2017-09-30] MEDS ORDERED: VANCOMYCIN 1,500 MG/NS 500 ML IV ONE ×2 (11:00)
--- NOTE | 2017-09-30 11:27 | RADRPT ---
EXAM DATE/TIME: 09/30/2017 10:33 [facility] COMPARISON: CHEST SINGLE AP, September 29, 2017, 17:50. INDICATIONS : Post intubation. MEDICAL HISTORY : Dementia. Hypertension. SURGICAL HISTORY : Appendectomy. Hysterectomy. ENCOUNTER: Subsequent ACUITY: 2 days PAIN SCORE: Non-responsive. LOCATION: Bilateral chest FINDINGS: An endotracheal tube has its tip 1 cm above the angle. This could be pulled back 2 cm for more optim al positioning. The heart is normal. The pulmonary vascular pattern is normal. The lungs are clear. CONCLUSION: Endotracheal tube has its tip 1 cm above the angle. This could be pulled back 2 cm for more optimal positioning. Robby Ann MD on September 30, 2017 at 11:24 Board Certified Radiologist. This report was verified electronically.
--- NOTE | 2017-09-30 11:52 | PD.PROCEDR ---
Procedure Note Procedure DX: Severe sepsis encephalopathy, fever, leukocytosis OP: Diagnostic lumbar puncture (90794) Procedure: Time out performed and patient identified. Family not immediately available and medical necessity for diagnosis of probable meningitis. The patient was previously intubated and placed on mechanical ventilation. She was then turned in the left lateral decubitus position. Usual ICU monitoring was in place including rate controlled mechanical ventilation. The lumbar region with painted with Betadine and draped a sterile sheets. A 20-gauge spinal needle was delivered through the midline of the back and entered the L4-5 space. Immediate return of cloudy fluid occurred. Opening pressure was 20 cm of water. 4 vials of 2 mL each were filled and sent for diagnostic studies. Spinal needle was removed and a sterile dressing was applied. Initial impression is bacterial meningitis. Santos Dorman MD Sep 30, 2017 11:52
--- NOTE | 2017-09-30 12:12 | PD.ID.CON ---
History of Present Illness Service ID Consult Requested By Dr Lewis Reason for Consult Gram positive bactermia Primary Care Physician Jordy Amaya MD Diagnoses: History of Present Illness Pt unable to provide history 2/2 MS Hx from the chart and other providers 72 yo female detention resident with dementia admitted last night with high fever up to 102.7 ax and mental status change W/u included unremarkable CT A/P, CXR and UA Blood clx growing GPC in 4/4 bottles in pairs, chains Spinal tap just completed and obtained cereospinal fluid looked cloudy Review of Systems ROS Limitations: Intubated, Altered Mental Status, Unresponsive Past Family Social History Allergies: Coded Allergies: No Known Allergies (Verified Allergy, Unknown, 09/29/17) Past Medical History Anxiety, Depression, Dementia and HTN Past Surgical History Appendectomy, Hysterectomy, Right knee Replacement Active Ordered Medications Medications where reviewed in EMR Antibiotics Include: CFTX 2 gm vanco ampicillin Family History Reviewed. No h/o DM or CAD Social History : Negative for alcohol, tobacco or drugs. resides in detention Physical Exam Vital Signs Vital Signs Date Time Temp Pulse Resp B/P (MAP) Pulse Ox O2 Delivery O2 Flow Rate FiO2 09/30/17 10:57 100 50 09/30/17 09:57 96 Nasal Cannula 2.00 09/30/17 09:30 101.7 130 36 171/75 (107) 93 09/30/17 08:00 130 09/30/17 08:00 101.7 130 44 171/75 (107) 93 09/30/17 04:00 128 09/30/17 04:00 100.5 129 22 172/78 (109) 95 09/30/17 01:30 102.7 137 22 179/82 (114) 93 09/30/17 00:00 125 09/30/17 00:00 101.2 130 20 179/83 (115) 94 09/29/17 23:00 125 09/29/17 22:52 09/29/17 20:31 125 26 136/61 (86) 95 Room Air 09/29/17 19:35 100.8 09/29/17 18:20 97 Room Air 09/29/17 17:14 104 19 134/64 (87) 97 Room Air Physical Exam CONSTITUTIONAL/GENERAL: This is an obese elderly patient, in no apparent distress. TUBES/LINES/DRAINS: SKIN: No jaundice, rashes, or lesions. Skin temperature appropriate. Not diaphoretic. HEAD: Atraumatic. Normocephalic. EYES: Pupils equal and round and reactive. Extraocular motions intact. No scleral icterus. No injection or drainage. Fundi not examined. ENT: Hearing not tested. Nose without bleeding or purulent drainage. Orally intubated visualised mucosea w/o lesions NECK: Trachea midline. Supple, nontender. CARDIOVASCULAR: Regular rate and rhythm without murmurs, gallops, or rubs. No JVD. Peripheral pulses symmetric. RESPIRATORY/CHEST: Symmetric, unlabored respirations. Clear to auscultation. Breath sounds equal bilaterally. No wheezes, rales, or rhonchi. GASTROINTESTINAL: Abdomen soft, non-tender, nondistended. No hepato-splenomegaly , or palpable masses. No guarding. Bowel sounds present. Incontinent of liquid brown stool GENITOURINARY: Without palpable bladder distension. Koo catheter in place with yellow urine MUSCULOSKELETAL: Extremities without clubbing, cyanosis, or edema. No joint tenderness or effusion noted. No calf tenderness. No mottling or clubbing. LYMPHATICS: No palpable cervical or supraclavicular adenopathy. NEUROLOGICAL: Pt is obtunded prior to procedure, now sedated Not following PSYCHIATRIC: unable to assess Laboratory Laboratory Tests Test 09/29/17 17:40 09/29/17 17:45 09/30/17 01:26 White Blood Count 18.4 Red Blood Count 4.00 Hemoglobin 10.9 Hematocrit 32.0 Mean Corpuscular Volume 80.2 Mean Corpuscular Hemoglobin 27.3 Mean Corpuscular Hemoglobin Concent 34.0 Red Cell Distribution Width 16.6 Platelet Count 310 Mean Platelet Volume 8.3 Neutrophils (%) (Auto) 89.8 Lymphocytes (%) (Auto) 6.6 Monocytes (%) (Auto) 3.5 Eosinophils (%) (Auto) 0.0 Basophils (%) (Auto) 0.1 Neutrophils # (Auto) 16.5 Lymphocytes # (Auto) 1.2 Monocytes # (Auto) 0.7 Eosinophils # (Auto) 0.0 Basophils # (Auto) 0.0 CBC Comment DIFF FINAL Differential Comment Blood Urea Nitrogen 21 Creatinine 0.83 Random Glucose 126 Total Protein 8.7 Albumin 2.2 Calcium Level 9.0 Alkaline Phosphatase 114 Aspartate Amino Transf (AST/SGOT) 23 Alanine Aminotransferase (ALT/SGPT) 13 Total Bilirubin 0.6 Sodium Level 134 Potassium Level 3.4 Chloride Level 100 Carbon Dioxide Level 21.7 Anion Gap 12 Estimat Glomerular Filtration Rate 82 Lactic Acid Level 1.0 Urine Color YELLOW Urine Turbidity HAZY Urine pH 6.0 Urine Specific [place] 1.026 Urine Protein 100 Urine Glucose (UA) NEG Urine Ketones NEG Urine Occult Blood NEG Urine Nitrite NEG Urine Bilirubin NEG Urine Urobilinogen 2.0 Urine Leukocyte Esterase SMALL Urine RBC 3 Urine WBC 3 Urine Squamous Epithelial Cells 1 Urine Amorphous Sediment MOD Urine Bacteria RARE Urine Hyaline Casts 6 Urine Mucus FEW Microscopic Urinalysis Comment CATH-CULTURE IND Troponin I 0.71 Date/Time Source Procedure Growth Status 09/29/17 17:55 Blood Peripheral Aerobic Blood Culture - Preliminary Gram Positive Cocci Resulted 09/29/17 17:55 Anaerobic Blood Culture - Preliminary Gram Positive Cocci Resulted 09/29/17 18:00 Nasal Aspirate Influenza Types A,B Antigen (CYNTHIA) - Final NEGATIVE FOR FLU A AND B ANTIGEN.... Complete 09/29/17 17:45 Urine Catheterized Urine Urine Culture Pending Received Result Diagram: 09/29/17 1740 09/29/17 1740 Assessment and Plan Assessment and Plan Bacterial meningtis 2/2 Strep pneumo Strep pneumo bacteremia Acute VDRF Critically ill, unstable Diarrrea cont CFTX 2 gm q 12 cont vanco dc ampicillin no sterroids @ this point 2/2 prior abx chk stool for C.diff Discussed Condition With Dr Wilfred Nelson,Jennifer Suazo MD Sep 30, 2017 12:12
[2017-09-30] MEDS: SODIUM CHLOR 0.9% 1000 ML INJ 1,000 ML IV SCH ×2 (12:18→23:23)
[2017-09-30 12:35] LABS: TOTAL PROTEIN,CSF 258.1 MG/DL (15.0-45.0)
[2017-09-30 12:59] LABS: SUPERNATE COLOR TUBE #1 SLIGHTLY XANTHOCHROM (CLEAR); WBC TUBE #1 4788 /MM3 (0-10)
[2017-09-30 13:00] LABS: RBC TUBE #1 1036 /MM3
[2017-09-30] MEDS: cefTRIAXone INJ 2,000 MG in SODIUM CHLORIDE 0.9% INJ 100 ML IV SCH (13:00)
[2017-09-30] MEDS ORDERED: AMPICILLIN INJ 2,000 MG in SODIUM CHLORIDE 0.9% INJ 100 ML IV SCH (13:00)
[2017-09-30 13:05] LABS: CSF LYMPHOCYTES 3 %; CSF MONOCYTES 7 %; CSF NEUTROPHILS 90 %
--- NOTE | 2017-09-30 13:28 | MB ---
cc: Fly Jimenez MD DATE: 09/30/2017 HISTORY OF PRESENT ILLNESS: She is seen in neurological consultation. She is a 72-year-old woman admitted with altered mental status, fever, and a urinary tract infection. She was admitted yesterday when brought in with a fever. Initial diagnoses were multifactorial, sepsis-related encephalopathy. Today, she was intubated and a lumbar puncture was carried out with initial findings compatible with meningitis. The spinal fluid was cloudy, apparently purulent. Discussed with the casting machine service operator. PHYSICAL EXAMINATION: When I came to see the patient, she was intubated, sedated and had received paralytic agents for the lumbar puncture. Therefore, the neurological exam was very limited. Pupils were relatively small. She was flaccid and reflexes were absent. She has had bilateral knee surgeries. ASSESSMENT: Meningitis, bacterial. Spinal fluid just collected at the time of my visit an hour or 2 ago. Spinal fluid glucose is 43, protein is 258 and other data pending on the spinal fluid. WBC serum 18.[address] brain from last evening showed possible ischemic change, anterior limb, internal capsule, left side. PLAN: I will monitor the neurological course. She is already being evaluated by infectious disease specialist and casting machine service operator. Thank you for asking us to participate in her care. Fly Jimenez MD OFC/SB , 01:10 PM , 01:27 PM
[2017-09-30 15:39] LABS: AUTOMATED NEUTROPHIL # 16.5 TH/MM3 (1.8-7.7); BASOPHIL % 0.1 % (0.0-2.0); HEMATOCRIT 31.3 % (35.0-46.0); LYMPH % 9.1 % (9.0-44.0); LYMPHOCYTE # 1.8 TH/MM3 (1.0-4.8); MEAN CELL VOLUME 81.3 FL (80.0-100.0); MEAN CORPUSCULAR HEMOGLOBIN 25.9 PG (27.0-34.0); MEAN CORPUSCULAR HGB CONC 31.9 % (32.0-36.0); MEAN PLATELET VOLUME 8.6 FL (7.0-11.0); MONO % 7.9 % (0.0-8.0); MONOCYTE # 1.6 TH/MM3 (0-0.9); NEUT % 82.9 % (16.0-70.0); PLATELET COUNT 246 TH/MM3 (150-450); RED BLOOD COUNT 3.85 MIL/MM3 (4.00-5.30); WHITE BLOOD COUNT 19.9 TH/MM3 (4.0-11.0)
--- NOTE | 2017-09-30 15:43 | ECHRPT ---
Indication: CVA/TIA CONCLUSIONS Normal left ventricular size. Moderate concentric left ventricular hypertrophy. The left ventricular systolic function is hyperdynamic with an estimated ejection fraction in the ra nge of 70- 75%. Moderate mitral valve regurgitation (eccentric) Mitral annular calcification is present. Moderate mitral annular calcification. Aortic valve sclerosis is present. Mild thickening of the aortic valve leaflets. Trace aortic valve regurgitation. There is mild tricuspid valve regurgitation. Mild pulmonary valve regurgitation. BP: / HR: Rhythm: MEASUREMENTS (Male / Female) Normal Values Technical Quality: 2D ECHO LV Diastolic Diameter PLAX 4.1 cm 4.2 - 5.9 / 3.9 - 5.3 cm LV Systolic Diameter PLAX 2.6 cm IVS Diastolic Thickness 1.4 cm 0.6 - 1.0 / 0.6 - 0.9 cm LVPW Diastolic Thickness 0.7 cm 0.6 - 1.0 / 0.6 - 0.9 cm LV Relative Wall Thickness 0.5 M-MODE Aortic Root Diameter MM 2.4 cm AV Cusp Separation MM 1.7 cm DOPPLER AV Peak Velocity 193.0 cm/s AV Peak Gradient 14.9 mmHg LVOT Peak Velocity 132.5 cm/s LVOT Peak Gradient 7.0 mmHg TR Peak Velocity 281.0 cm/s TR Peak Gradient 31.6 mmHg FINDINGS LEFT VENTRICLE Normal left ventricular size. Moderate concentric left ventricular hypertrophy. The left ventricular systolic function is hyperdynamic with an estimated ejection fraction in the ra nge of 70- 75%. RIGHT VENTRICLE Normal right ventricular size and systolic function. LEFT ATRIUM The left atrial size is normal. RIGHT ATRIUM The right atrial size is normal. ATRIAL SEPTUM Normal atrial septal thickness without atrial level shunting by limited color doppler interrogation. AORTA The aortic root and proximal ascending aorta are normal in size on limited imaging. MITRAL VALVE Moderate mitral valve regurgitation. Mitral annular calcification is present. Moderate mitral annular calcification. Moderate thickening of the mitral valve leaflets. AORTIC VALVE Aortic valve sclerosis is present. Mild thickening of the aortic valve leaflets. Trace aortic valve regurgitation. TRICUSPID VALVE There is mild tricuspid valve regurgitation. PULMONARY VALVE Mild pulmonary valve regurgitation. VESSELS The inferior vena cava is normal in size. PERICARDIUM No pericardial effusion. Dada Johnson MD (Electronically Signed) Final Date:30 September 2017 15:42
[2017-09-30 15:51] LABS: ALBUMIN 1.8 GM/DL (3.4-5.0); AST (GOT) 18 U/L (15-37); BICARBONATE 19.7 MEQ/L (21.0-32.0); BLOOD UREA NITROGEN 14 MG/DL (7-18); CALCIUM 8.6 MG/DL (8.5-10.1); CHLORIDE 106 MEQ/L (98-107); CHOLESTEROL 113 MG/DL (120-200); CREATININE 0.88 MG/DL (0.50-1.00); GLOMERULAR FILTRATION RATE 76 ML/MIN (>89); GLUCOSE,RANDOM 125 MG/DL (74-106); SODIUM (NA) 140 MEQ/L (136-145); TRIGLYCERIDES 150 MG/DL (42-150)
[2017-09-30 15:56] LABS: ALKALINE PHOSPHATASE 111 U/L (45-117); ALT (GPT) 11 U/L (10-53); CHOLESTEROL/ HDL RATIO 6.53 RATIO; HDL CHOLESTEROL 17.3 MG/DL (40.0-60.0); LDL CHOLESTEROL 66 MG/DL (0-99); TOTAL BILIRUBIN ADULT 0.7 MG/DL (0.2-1.0); TOTAL PROTEIN 8.3 GM/DL (6.4-8.2); TROPONIN I 0.54 NG/ML (0.02-0.05)
[2017-09-30] MEDS ORDERED: cefTRIAXone INJ 2,000 MG in SODIUM CHLORIDE 0.9% INJ 100 ML IV SCH (18:00)
[2017-09-30 18:52] LABS: LACTIC ACID SEPSIS PROTOCOL 5.9 mmol/L (0.4-2.0)
--- NOTE | 2017-09-30 19:45 | EKG ---
Date Performed: 09/30/2017 Time Performed: 10:21:01 PTAGE: 72 years EKG: SINUS TACHYCARDIA NONSPECIFIC ST & T-WAVE ABNORMALITY Since the previous tracing, no signif icant change noted ABNORMAL RHYTHM ECG PREVIOUS TRACING : 09/29/2017 18.46 DOCTOR: Steven Kendrick Interpretating Date/Time 09/30/2017 19:44:19
--- NOTE | 2017-09-30 19:45 | EKG ---
Date Performed: 09/29/2017 Time Performed: 18:46:07 PTAGE: 72 years EKG: SINUS TACHYCARDIA WITH SHORT SD INTERVAL NONSPECIFIC T-WAVE ABNORMALITY Since the previous tracing, no significant change noted ABNORMAL RHYTHM ECG PREVIOUS TRACING : 02/11/2014 19.09 DOCTOR: Steven Kendrick Interpretating Date/Time 09/30/2017 19:44:11
[2017-09-30] MEDS: CHLORHEXIDINE 0.12% (ORAL KIT) 15 ML CUP MT SCH (20:00)
[2017-09-30] MEDS: ATORVASTATIN 10 MG TAB PO SCH (20:31)
[2017-09-30] MEDS ORDERED: SODIUM CHLOR 0.9% 1000 ML INJ 1,000 ML IV ONE ×2 (22:15)
[2017-09-30] MEDS ORDERED: cefTRIAXone INJ 1,000 MG in SODIUM CHLORIDE 0.9% INJ 100 ML IV SCH (23:00)
[2017-10-01] VITALS (18 sets, daily range): BP systolic 110–143; BP diastolic 59–70; PULSE 71–96; RESP 16–28; TEMP 95.6–99.3; O2SAT 97–100
[2017-10-01] MEDS: SODIUM CHLOR 0.9% 1000 ML INJ 1,000 ML IV SCH ×3 (00:52→16:54)
[2017-10-01] MEDS: PROPOFOL 1000 MG/100 ML INJ 100 ML IV PRN ×4 (01:00→23:56)
[2017-10-01] MEDS: cefTRIAXone INJ 2,000 MG in SODIUM CHLORIDE 0.9% INJ 100 ML IV SCH ×3 (01:21→23:57)
[2017-10-01 03:57] LABS: AUTOMATED NEUTROPHIL # 16.1 TH/MM3 (1.8-7.7); BASOPHIL % 0.2 % (0.0-2.0); EOSINOPHIL % 0.1 % (0.0-4.0); HEMATOCRIT 31.9 % (35.0-46.0); HEMOGLOBIN 10.3 GM/DL (11.6-15.3); LYMPH % 10.1 % (9.0-44.0); MEAN CELL VOLUME 80.6 FL (80.0-100.0); MEAN CORPUSCULAR HGB CONC 32.2 % (32.0-36.0); MEAN PLATELET VOLUME 8.5 FL (7.0-11.0); MONO % 9.3 % (0.0-8.0); MONOCYTE # 1.9 TH/MM3 (0-0.9); NEUT % 80.3 % (16.0-70.0); PLATELET COUNT 257 TH/MM3 (150-450); RED BLOOD COUNT 3.95 MIL/MM3 (4.00-5.30); RED CELL DISTRIBUTION WIDTH 17.1 % (11.6-17.2)
[2017-10-01 04:38] LABS: ALBUMIN 1.6 GM/DL (3.4-5.0); ALKALINE PHOSPHATASE 109 U/L (45-117); ALT (GPT) 10 U/L (10-53); AST (GOT) 22 U/L (15-37); BICARBONATE 20.4 MEQ/L (21.0-32.0); BLOOD UREA NITROGEN 30 MG/DL (7-18); CALCIUM 8.3 MG/DL (8.5-10.1); CHLORIDE 108 MEQ/L (98-107); CREATININE 1.67 MG/DL (0.50-1.00); GLOMERULAR FILTRATION RATE 36 ML/MIN (>89); GLUCOSE,RANDOM 103 MG/DL (74-106); SODIUM (NA) 141 MEQ/L (136-145); TOTAL BILIRUBIN ADULT 0.5 MG/DL (0.2-1.0)
[2017-10-01] MEDS: INSULIN ASPART SUPPLEMENTAL SCALE SQ SCH ×4 (08:00→21:00)
[2017-10-01] MEDS: CHLORHEXIDINE 0.12% (ORAL KIT) 15 ML CUP MT SCH ×2 (08:42→20:00)
[2017-10-01] MEDS: ASPIRIN 81 MG CHEW TAB PO SCH (08:42)
[2017-10-01] MEDS: DOCUSATE SODIUM 50 MG/SENNA 8.6 MG TAB PO SCH ×2 (08:42→21:11)
[2017-10-01] MEDS: SODIUM CHLORIDE 0.9% FLUSH 10 ML FLUSH IV FLUSH SCH ×2 (08:42→21:00)
[2017-10-01] MEDS ORDERED: LACTATED RINGER'S 1000 ML INJ 1,000 ML IV ONE ×2 (08:45→13:00)
--- NOTE | 2017-10-01 09:45 | HHI.CCPN ---
Subjective Remarks/Hospital Course 09/29: This is a 72-year-old female with a PMH of Anxiety, Depression, Dementia and HTN who is brought to the ER by Rivet Tester secondary to AMS and fever of 102. Patient unable to provide any history at this time, history obtained from records and report of filing writer. On arrival, BP 134/64, HR 104, O2 sat 97% on RA, Temp 100.8. WBC 18.4. BUN 21. GFR 82. Lactic Acid normal. UA positive for UTI. CXR possible mild failure without consolidation. CT Abdomen/Pelvis no acute findings. CT Head probable ischemic changes anterior limb internal capsule on the left. S/p Blood Cultures positive for gram + cocci 10/10 bottles, Rocephin now, add Vancomycin. 09/30: Continued high grade fever, increasing leukocytosis. Brought to [facility] for labored tachypnea. She is clenching her jaw and possibly seizing. Will intubate and ventilate for airway protection, proceed directly to lumbar puncture, broaden abx coverage. 10/01: Patient intubated and placed on mechanical ventilation yesterday. Underwent lumbar puncture which showed cloudy CSF with CSF studies consistent with bacterial meningitis. Blood cultures with strep pneumo. Patient has already been evaluated by BERNARD Nelson. Currently remains sedated, orally intubated on mechanical ventilation. Objective Vital Signs Date Time Temp Pulse Resp B/P (MAP) Pulse Ox O2 Delivery O2 Flow Rate FiO2 10/01/17 07:30 98 Ventilator 40 10/01/17 06:00 89 10/01/17 04:00 99.3 22 136/70 (92) 09/30/17 09:57 2.00 Intake and Output 10/01/17 10/01/17 10/02/17 08:00 16:00 00:00 Intake Total 2200 ml Output Total 350 ml Balance 1850 ml Result Diagram: 10/01/17 0343 10/01/17 0343 Other Results Microbiology Date/Time Source Procedure Growth Status 09/29/17 18:00 Nasal Aspirate Influenza Types A,B Antigen (CYNTHIA) - Final NEGATIVE FOR FLU A AND B ANTIGEN.... Complete Laboratory Tests Test 09/30/17 12:19 Blood Gas Puncture Site LT RADIAL Blood Gas Patient Temperature 98.6 Blood Gas HCO3 19 mmol/L (22-26) Blood Gas Base Excess -2.9 mmol/L (-2-2) Blood Gas Oxygen Saturation 96 % (90-100) Arterial Blood pH 7.55 (7.380-7.420) Arterial Blood Partial Pressure CO2 22 mmHg (38-42) Arterial Blood Partial Pressure O2 92 mmHg (61-120) Arterial Blood Oxygen Content 13.7 Vol % (12.0-20.0) Arterial Blood Carboxyhemoglobin 1.3 % (0-4) Arterial Blood Methemoglobin 0.9 % (0-2) Blood Gas Hemoglobin 10.1 G/DL (12.0-16.0) Oxygen Delivery Device VENTILATOR Blood Gas Ventilator Setting PRVC/AC Blood Gas Inspired Oxygen 50 % Imaging Last Impressions Chest X-Ray 09/30/17 0000 Signed Impressions: Service Date/Time: Saturday, September 30, 2017 10:33 - CONCLUSION: Endotracheal tube has its tip 1 cm above the angle. This could be pulled back 2 cm for more optimal positioning. Robby Ann MD Head CT 09/29/17 0000 Signed Impressions: Service Date/Time: Friday, September 29, 2017 21:16 - CONCLUSION: Probable ischemic changes in as described above. MRI would be of benefit. Jon Plata MD FACR Abdomen/Pelvis CT 09/29/17 0000 Signed Impressions: Service Date/Time: Friday, September 29, 2017 21:19 - CONCLUSION: Do not see the etiology of fever with altered mental status.. Diverticuli sigmoid colon without diverticulitis. No gallstones Jon Plata MD FACR Objective Remarks HEENT/ Neuro: Sedated, orally intubated, Pallor present, no icterus, tongue/ mucosa moist Neck: Neck stiffness present, No JVD Chest/Pulm: on mech vent, good air entry bilaterally, no wheezing or crackles CVS: S1-S2 regular, no murmur GI/abdomen: soft, nontender, bowel sounds sluggish Extremities: warm bilaterally, no edema A/P Assessment and Plan Assessment: 1. Severe sepsis. 1a. Bacterial Meningitis. 2. Encephalopathy, infectious. 3. Bacteremia - GPC 4. Acute respiratory failure on mechanical ventilation 5. History of dementia Plan: Neuro: Sedation with propofol, daily sedation vacation. Awaiting MRI brain. Ordered EEG. Follow neuro status. Cardiovascular: IV hydration. 1 L LR bolus ordered for elevated lactic acid which is coming down. Watch for hypotension. Levophed for pressor support if needed. Will obtain 2-D echo as patient appears to have a systolic murmur for further evaluation. Pulmonary: Continue mechanical ventilation, vent bundle, bronchodilators as needed. GI/liver: Start tube feeds and advanced to goal as tolerated. Renal/: IV hydration, strict intake output, monitor and replete elect lites, follow BUN/creatinine. ID: Continue antibiotic coverage per Dr. Nelson from ID. Currently on IV vancomycin and Rocephin per ID. follow-up blood cultures which are growing strep pneumo 4 out of 4 bottles. Will obtain 2-D echo for further evaluation of heart murmur in view of bacteremia. Endocrine: Watch for hyperglycemia, SSI for glycemic control if needed Heme: Follow CBC Prophylaxis: PPI/SCDs. Subcutaneous Lovenox 24 hours after completion of LP following review of MRI Explained current clinical status with patient's daughter at bedside in detail including plan of care and she voiced understanding and was agreeable. Overall impression: Patient is critically ill with bacterial meningitis requiring intubation and mechanical ventilation. Critical care 45 mins excluding procedures Maury Siegel MD Oct 01, 2017 09:45
[2017-10-01] MEDS ORDERED: ROCURONIUM INJ 50 MG/5 ML VIAL IV STA (10:29)
[2017-10-01] MEDS ORDERED: VANCOMYCIN INJ 1,500 MG in SODIUM CHLORID 0.9% 500 ML INJ 500 ML IV SCH (11:00)
--- NOTE | 2017-10-01 16:40 | MG ---
cc: Mt Adames MD, PhD TEST NUMBER: [id number] TECHNIQUE: A 17-channel EEG. DESCRIPTION: The background rhythm reveals generalized slowing and theta and delta frequencies ranging from 4 Hz to 6 Hz. There are no lateralizing features seen. There are no epileptiform discharges present. Photic results in a poor driving response. INTERPRETATION: Abnormal study consistent with a moderately severe encephalopathy. Mt Adames MD, PhD ADAL/SB , 04:30 PM , 04:39 PM
[2017-10-01] MEDS ORDERED: GADOBENATE DIM PF 529 MG/ML 5 ML VIAL (for RAD MRI) IV ONE (16:41)
--- NOTE | 2017-10-01 17:36 | RADRPT ---
EXAM DATE/TIME: 10/01/2017 16:08 [facility] COMPARISON: No previous studies available for comparison. INDICATIONS : CVA. CONTRAST: 16 cc Multihance (gadobenate) IV MEDICAL HISTORY : Hypertension. Bacterial meningitis, Vented. SURGICAL HISTORY : Appendectomy. Hysterectomy. Bilateral knee sx. ENCOUNTER: Initial ACUITY: 2 day PAIN SCORE: Nonresponsive. LOCATION: Bilateral cranial TECHNIQUE: Multiplanar, multisequence MRI of the brain was performed both prior to and following the administrat ion of paramagnetic contrast. FINDINGS: There are multiple punctate areas of focally restricted diffusion involving the hemispheres bilateral ly and also involving the brainstem and cerebellar hemispheres bilaterally. The largest of these is a minimally greater than 1 cm area of the low convexity left parietal-occipital cortex. An old lacunar infarct in left basal ganglia is present. There is mild patchy T2 prolongation in deep white matter elsewhere which appears likely microvascular ischemic in etiology. There is no evidence of intracranial hemorrhage or mass. There is no focal abnormal parenchymal contrast enhancement iden tified and grossly normal enhancement is present in the intracranial vascular structures. There is mi ld mucosal disease and occasional facial sinuses. There is moderate fluid in the mastoids bilaterally . CONCLUSION: Widespread punctate subacute infarctions involving multiple vasculature territories bilaterally. Jordy Levin MD on October 01, 2017 at 17:29 Board Certified Radiologist. This report was verified electronically.
[2017-10-01 18:15] LABS: ALBUMIN 1.3 GM/DL (3.4-5.0); ALKALINE PHOSPHATASE 96 U/L (45-117); ALT (GPT) 11 U/L (10-53); AST (GOT) 33 U/L (15-37); BICARBONATE 16.8 MEQ/L (21.0-32.0); BLOOD UREA NITROGEN 43 MG/DL (7-18); CALCIUM 8.1 MG/DL (8.5-10.1); CHLORIDE 110 MEQ/L (98-107); CREATININE 2.76 MG/DL (0.50-1.00); GLOMERULAR FILTRATION RATE 20 ML/MIN (>89); GLUCOSE,RANDOM 92 MG/DL (74-106); SODIUM (NA) 141 MEQ/L (136-145); TOTAL BILIRUBIN ADULT 0.4 MG/DL (0.2-1.0); TOTAL PROTEIN 6.7 GM/DL (6.4-8.2)
[2017-10-01] MEDS: SODIUM BICARBONATE 8.4% INJ 150 MEQ in WATER STERILE FOR INJ 850 ML IV SCH (19:33)
[2017-10-01] MEDS: ATORVASTATIN 10 MG TAB PO SCH (21:11)
[2017-10-02] VITALS (19 sets, daily range): BP systolic 122–145; BP diastolic 61–75; PULSE 72–94; RESP 17–28; TEMP 98–99.7; O2SAT 93–100
[2017-10-02 04:59] LABS: BACTERIA, URINE RARE /hpf; BILIRUBIN, URINE NEG (NEG); BLOOD, URINE MOD (NEG); GLUCOSE,URINE NEG (NEG); HYALINE CAST, URINE 1 /lpf (RARE); KETONE, URINE NEG (NEG); MUCUS URINE FEW /lpf (OCC); NITRITE,URINE NEG (NEG); PH, URINE 5.5 (5.0-8.5); SQUAMOUS EPITHELIAL CELL URINE 2 /hpf (0-5); TRANSITIONAL EPI CELLS, URINE <1 /hpf; URINE COLOR LIGHT-YELLOW (YELLW/STRAW); URINE LEUKOCYTE ESTERASE MOD (NEG)
[2017-10-02 05:15] LABS: CREATININE, RANDOM URINE LESS THAN 13.0 MG/DL; SODIUM,RANDOM URINE 125 MEQ/L
[2017-10-02] MEDS: SODIUM BICARBONATE 8.4% INJ 150 MEQ in WATER STERILE FOR INJ 850 ML IV SCH ×2 (06:27→15:00)
[2017-10-02] MEDS: PROPOFOL 1000 MG/100 ML INJ 100 ML IV PRN (06:28)
[2017-10-02] MEDS: CHLORHEXIDINE 0.12% (ORAL KIT) 15 ML CUP MT SCH ×2 (08:00→21:10)
[2017-10-02] MEDS: INSULIN ASPART SUPPLEMENTAL SCALE SQ SCH ×4 (08:00→21:34)
[2017-10-02] MEDS: DOCUSATE SODIUM 50 MG/SENNA 8.6 MG TAB PO SCH ×2 (09:00→21:10)
[2017-10-02] MEDS: ASPIRIN 81 MG CHEW TAB PO SCH (09:00)
[2017-10-02] MEDS: SODIUM CHLORIDE 0.9% FLUSH 10 ML FLUSH IV FLUSH SCH ×2 (09:00→21:10)
--- NOTE | 2017-10-02 10:04 | PD.CONS ---
[facility] Service Nephrology Consult Requested By Dr. Siegel Reason for Consult Acute Kidney Injury Primary Care Physician Jordy Amaya MD History of Present Illness Patient is a 72-year-old female with a PMH of Anxiety, Depression, Dementia and HTN who is brought to the ER by [employer] Manager secondary to AMS and fever of 102. Patient unable to provide any history at this time, history obtained from records and and daughter. UA positive for UTI. CXR possible mild failure without consolidation. CT Abdomen/Pelvis no acute findings. CT Head probable ischemic changes anterior limb internal capsule on the left. Patient is intubated FiO2 at 40 %. BC with streptococcus pneumoniae. Patient has received vancomycin and Rocephin. Nephrology is consulted for acute change in renal function with a creatinine of 2.76 with a drop in UOP at 300 ml over 24 hours. Patient is also noted to have a CO2 level of 16.8 this morning and is on a sodium bicarbonate gtt. Per the daughter patient has not history of kidney disease and has not been followed by a technical services specialist in the past. Patient admission creatinine was 0.83. (Charissa Jones) Review of Systems ROS Limitations: Intubated (Charissa Jones) Past Family Social History Allergies: Coded Allergies: No Known Allergies (Verified Allergy, Unknown, 09/29/17) Past Medical History Anxiety Depression Dementia HTN Arthritis Past Surgical History Appendectomy Hysterectomy Right knee Replacement Active Ordered Medications Current Medications Medications (Trade) Dose Ordered Sig/Ganesh Route Start Time Stop Time Status Last Admin (Aspirin Chew) 81 mg DAILY PO 09/30/17 09:00 10/02/17 09:00 (Lipitor) 10 mg HS PO 09/30/17 21:00 10/01/17 21:11 (NovoLOG SUPPLEMENTAL SCALE) 1 ACHS SQ 09/30/17 08:00 (D50w (Vial) Inj) 50 ml UNSCH PRN IV PUSH 09/29/17 22:15 (Glucagon Inj) 1 mg UNSCH PRN OTHER 09/29/17 22:15 (NS Flush) 2 ml UNSCH PRN IV FLUSH 09/29/17 22:15 (NS Flush) 2 ml BID IV FLUSH 09/30/17 09:00 10/02/17 09:00 (Zofran Inj) 4 mg Q6H PRN IVP 09/29/17 22:15 (Tylenol) 650 mg Q6H PRN PO 09/29/17 22:15 ([place] 5-325 Mg) 1 tab Q4H PRN PO 09/29/17 22:15 ([place] 10-325 Mg) 1 tab Q4H PRN PO 09/29/17 22:15 (Megan-Colace) 1 tab BID PO 09/30/17 09:00 10/01/17 21:11 (Milk Of Magnesia Liq) 30 ml Q12H PRN PO 09/29/17 22:15 (Senokot) 17.2 mg Q12H PRN PO 09/29/17 22:15 (Dulcolax Supp) 10 mg DAILY PRN RECTAL 09/29/17 22:15 (Lactulose Liq) 30 ml DAILY PRN PO 09/29/17 22:15 Pharmacy Profile Note 0 ml @ 0 mls/hr UNSCH OTHER 09/30/17 10:30 (Peridex 0.12% Liq) 15 ml BID@08,20 MT 09/30/17 20:00 10/02/17 08:00 Propofol 100 ml @ 2.7 mls/hr TITRATE PRN IV 09/30/17 10:30 10/02/17 06:28 Ceftriaxone Sodium 2000 mg/ Sodium Chloride 100 ml @ 200 mls/hr Q12H IV 09/30/17 13:00 10/01/17 23:57 Vancomycin HCl 1500 mg/Sodium Chloride 515 ml @ 250 mls/hr Q24H IV 10/01/17 11:00 Future Hold 10/01/17 11:20 Sodium Bicarbonate 150 meq/Sterile Water 1,000 ml @ 100 mls/hr Q10H IV 10/01/17 19:00 10/02/17 06:27 Family History No family history of kidney disease Social History Remote history of tobacco abuse quit 1997 No ETOH Lives alone with 24 hour caregiver (Charissa Jones) Physical Exam Vital Signs Vital Signs Date Time Temp Pulse Resp B/P (MAP) Pulse Ox O2 Delivery O2 Flow Rate FiO2 10/02/17 08:00 78 10/02/17 08:00 40 10/02/17 08:00 98.1 76 26 122/70 (87) 99 10/02/17 07:38 99 Ventilator 40 10/02/17 07:38 99 40 10/02/17 07:00 100 Mechanical Ventilator 50 10/02/17 06:00 74 10/02/17 04:04 99 40 10/02/17 04:00 78 10/02/17 04:00 98.7 78 28 138/65 (89) 98 10/02/17 04:00 40 10/02/17 02:00 75 10/02/17 01:17 98 40 10/02/17 00:00 72 10/02/17 00:00 99.7 91 28 138/65 (89) 98 10/02/17 00:00 40 10/01/17 22:00 71 10/01/17 20:00 100 Mechanical Ventilator 50 10/01/17 20:00 98.7 96 25 135/63 (87) 97 10/01/17 20:00 40 10/01/17 20:00 71 10/01/17 19:29 98 40 10/01/17 18:00 86 10/01/17 17:53 100 40 10/01/17 16:00 71 10/01/17 16:00 40 10/01/17 16:00 98.5 86 16 143/68 (93) 98 10/01/17 15:30 100 100 10/01/17 14:00 75 10/01/17 12:00 95.6 71 28 123/66 (85) 100 10/01/17 12:00 40 10/01/17 12:00 71 10/01/17 11:40 100 40 10/01/17 10:00 75 Physical Exam GENERAL: Patient is intubated. SKIN: Warm and dry. HEAD: Normocephalic. EYES: No scleral icterus. No injection or drainage. NECK: Supple, trachea midline. No JVD or lymphadenopathy. CARDIOVASCULAR: Regular rate and rhythm without murmurs, gallops, or rubs. RESPIRATORY: Breath sounds equal bilaterally. No accessory muscle use. Intubated. GASTROINTESTINAL: Abdomen soft, non-tender, nondistended. Rectal tube GENITOURINARY: Indwelling Koo catheter MUSCULOSKELETAL: No cyanosis, or edema. BACK: Nontender without obvious deformity. No CVA tenderness. Laboratory Laboratory Tests Test 10/01/17 17:09 10/02/17 04:40 Blood Urea Nitrogen 43 Creatinine 2.76 Random Glucose 92 Total Protein 6.7 Albumin 1.3 Calcium Level 8.1 Alkaline Phosphatase 96 Aspartate Amino Transf (AST/SGOT) 33 Alanine Aminotransferase (ALT/SGPT) 11 Total Bilirubin 0.4 Sodium Level 141 Potassium Level 3.2 Chloride Level 110 Carbon Dioxide Level 16.8 Anion Gap 14 Estimat Glomerular Filtration Rate 20 Lactic Acid Level 0.5 Total Creatine Kinase 510 Creatine Kinase MB 6.3 Creatine Kinase MB % 1.2 Urine Color LIGHT-YELLOW Urine Turbidity HAZY Urine pH 5.5 Urine Specific [place] 1.008 Urine Protein 30 Urine Glucose (UA) NEG Urine Ketones NEG Urine Occult Blood MOD Urine Nitrite NEG Urine Bilirubin NEG Urine Urobilinogen LESS THAN 2.0 Urine Leukocyte Esterase MOD Urine RBC 2 Urine WBC 17 Urine Squamous Epithelial Cells 2 Urine Transitional Epithelial Cells <1 Urine Bacteria RARE Urine Hyaline Casts 1 Urine Granular Casts 4 Urine Mucus FEW Microscopic Urinalysis Comment CATH-CULTURE IND Urine Random Creatinine LESS THAN 13.0 Urine Random Sodium 125 Date/Time Source Procedure Growth Status 09/29/17 17:55 Blood Peripheral Aerobic Blood Culture - Final Streptococcus Pneumoniae Complete 09/29/17 17:55 Anaerobic Blood Culture - Final Streptococcus Pneumoniae Complete 09/30/17 11:30 Cerebral Spinal Fluid Lumbar Puncture Gram Stain - Final Resulted 09/30/17 11:30 Cerebral Spinal Fluid Lumbar Puncture CSF Culture - Preliminary NO GROWTH IN 24 HOURS. Resulted 09/29/17 18:00 Nasal Aspirate Influenza Types A,B Antigen (CYNTHIA) - Final NEGATIVE FOR FLU A AND B ANTIGEN.... Complete 10/02/17 04:40 Urine Catheterized Urine Urine Culture Pending Received (Charissa Jones) Result Diagram: 10/01/17 0343 10/01/17 1709 Imaging Last Impressions Brain MRI 10/01/17 0000 Signed Impressions: Service Date/Time: Sunday, October 01, 2017 16:08 - CONCLUSION: Widespread punctate subacute infarctions involving multiple vasculature territories bilaterally. Jordy Levin MD Chest X-Ray 09/30/17 0000 Signed Impressions: Service Date/Time: Saturday, September 30, 2017 10:33 - CONCLUSION: Endotracheal tube has its tip 1 cm above the angle. This could be pulled back 2 cm for more optimal positioning. Robby Ann MD Head CT 09/29/17 0000 Signed Impressions: Service Date/Time: Friday, September 29, 2017 21:16 - CONCLUSION: Probable ischemic changes in as described above. MRI would be of benefit. Jon Plata MD FACR Abdomen/Pelvis CT 09/29/17 0000 Signed Impressions: Service Date/Time: Friday, September 29, 2017 21:19 - CONCLUSION: Do not see the etiology of fever with altered mental status.. Diverticuli sigmoid colon without diverticulitis. No gallstones Jon Plata MD FACR (Charissa Jones) Assessment and Plan Problem List: (1) SEVERINO (acute kidney injury) ICD Codes: N17.9 - Acute kidney failure, unspecified Plan: Acute kidney injury with a creatinine of 2.76 up from 1.67 yesterday. On admission creatinine was less than 1. SEVERINO possible ATN with a FeNA of 18. Possible related to [place] or infection. UOP is at 300 ml over past [address] of abdomen: Nonobstructing 7 mm right renal stone noted. Plan Continue Sodium bicarbonate gtt Hypokalemia with replacement given Strict I+O Monitor UOP and BMP Tube feeding recommend Nephro Avoid nephrotoxins Serology ordered (2) Bacteremia ICD Codes: R78.81 - Bacteremia Plan: continue antibiotics renal dosing. (3) Hypertension, essential ICD Codes: I10 - Hypertension, essential Status: Acute Plan: Well controlled. (4) CVA (cerebral vascular accident) ICD Codes: I63.9 - Cerebral infarction, unspecified Plan: Neurology consulted and managing. (Charissa Jones) Problem List: (1) SEVERINO (acute kidney injury) ICD Codes: N17.9 - Acute kidney failure, unspecified Plan: Acute kidney injury with a creatinine of 2.76 up from 1.67 yesterday. On admission creatinine was less than 1. SEVERINO possible ATN with a FeNA of 18. Possible related to [place] or infection. UOP is at 300 ml over past [address] of abdomen: Nonobstructing 7 mm right renal stone noted. Plan Continue Sodium bicarbonate gtt Hypokalemia with replacement given Strict I+O Monitor UOP and BMP Tube feeding recommend Nephro Avoid nephrotoxins Serology ordered. Patient seen and examine, agree with above. Start Lasix, if not better, possible HD. (2) Bacteremia ICD Codes: R78.81 - Bacteremia Plan: continue antibiotics renal dosing. (3) Hypertension, essential ICD Codes: I10 - Hypertension, essential Status: Acute Plan: Well controlled. (4) CVA (cerebral vascular accident) ICD Codes: I63.9 - Cerebral infarction, unspecified Plan: Neurology consulted and managing. (Kingston Kirby MD) Charissa Jones Oct 02, 2017 10:04 Kingston Kirby MD Oct 02, 2017 21:58
[2017-10-02 10:22] LABS: HSV 1,PCR Negative (Negative)
--- NOTE | 2017-10-02 11:28 | RADRPT ---
EXAM DATE/TIME: 10/02/2017 11:03 [facility] COMPARISON: No previous studies available for comparison. INDICATIONS : Central line placement. MEDICAL HISTORY : Hypertension. Bacterial meningitis. SURGICAL HISTORY : Appendectomy. Hysterectomy. Bilateral knee sx. ENCOUNTER: Subsequent ACUITY: 3 days PAIN SCORE: Non-responsive. LOCATION: Bilateral chest FINDINGS: Right central line in superior vena cava. Endotracheal tube in good position. NG enters stomach. Bila teral mostly basilar airspace disease. No significant effusion. No pneumothorax. CONCLUSION: 1. Mild basilar airspace disease. Endotracheal tube, nasogastric tube and right central line in good position. No pneumothorax. Vlad Perez MD on October 02, 2017 at 11:23 Board Certified Radiologist. This report was verified electronically.
[2017-10-02 11:47] LABS: ALBUMIN 1.2 GM/DL (3.4-5.0); ALKALINE PHOSPHATASE 109 U/L (45-117); ALT (GPT) 19 U/L (10-53); AST (GOT) 38 U/L (15-37); BICARBONATE 23.9 MEQ/L (21.0-32.0); BLOOD UREA NITROGEN 54 MG/DL (7-18); CALCIUM 8.1 MG/DL (8.5-10.1); CHLORIDE 104 MEQ/L (98-107); CREATININE 3.67 MG/DL (0.50-1.00); GLOMERULAR FILTRATION RATE 15 ML/MIN (>89); GLUCOSE,RANDOM 136 MG/DL (74-106); RANDOM VANCOMYCIN 35.7 COMMENT; SODIUM (NA) 142 MEQ/L (136-145); TOTAL BILIRUBIN ADULT 0.2 MG/DL (0.2-1.0); TOTAL PROTEIN 6.3 GM/DL (6.4-8.2)
[2017-10-02 12:20] LABS: AUTOMATED NEUTROPHIL # 12.3 TH/MM3 (1.8-7.7); BASOPHIL # 0.1 TH/MM3 (0-0.2); BASOPHIL % 0.3 % (0.0-2.0); EOSINOPHIL # 0.1 TH/MM3 (0-0.4); EOSINOPHIL % 0.8 % (0.0-4.0); HEMATOCRIT 26.3 % (35.0-46.0); LYMPH % 12.4 % (9.0-44.0); LYMPHOCYTE # 1.9 TH/MM3 (1.0-4.8); MEAN CELL VOLUME 78.6 FL (80.0-100.0); MEAN CORPUSCULAR HGB CONC 34.3 % (32.0-36.0); MONO % 6.5 % (0.0-8.0); PLATELET COUNT 218 TH/MM3 (150-450); RED BLOOD COUNT 3.35 MIL/MM3 (4.00-5.30); RED CELL DISTRIBUTION WIDTH 16.8 % (11.6-17.2); WHITE BLOOD COUNT 15.4 TH/MM3 (4.0-11.0)
[2017-10-02] MEDS: cefTRIAXone INJ 2,000 MG in SODIUM CHLORIDE 0.9% INJ 100 ML IV SCH (13:00)
[2017-10-02 13:03] LABS: BANDS 9 % (0-6); LYMPHOCYTES 10 % (9-44); MONOCYTES 1 % (0-8); MYELOCYTES 1 % (0-0); NEUTROPHIL # MANUAL DIFF 13.7 TH/MM3 (1.8-7.7); POLYS (SEG NEUTROPHILS) 79 % (16-70)
[2017-10-02 13:04] LABS: TOXIC GRANULATION 1+ (NORMAL); TOXIC VACUOLATION PRESENT (NONE SEEN)
--- NOTE | 2017-10-02 14:13 | HHI.IDPN ---
Subjective Subjective Remarks ARF, oliguric, creatinine 3.7 afebrile On vent Strep pneumo urine with pyuria , GBS Antibiotics CFTX vanco Allergies: Coded Allergies: No Known Allergies (Verified Allergy, Unknown, 09/29/17) Objective . Vital Signs Date Time Temp Pulse Resp B/P (MAP) Pulse Ox O2 Delivery O2 Flow Rate FiO2 10/02/17 12:00 78 10/02/17 12:00 40 10/02/17 11:54 100 40 10/02/17 10:00 74 10/02/17 08:00 78 10/02/17 08:00 40 10/02/17 08:00 98.1 76 26 122/70 (87) 99 10/02/17 07:38 99 Ventilator 40 10/02/17 07:38 99 40 10/02/17 07:00 100 Mechanical Ventilator 50 10/02/17 06:00 74 10/02/17 04:04 99 40 10/02/17 04:00 78 10/02/17 04:00 98.7 78 28 138/65 (89) 98 10/02/17 04:00 40 10/02/17 02:00 75 10/02/17 01:17 98 40 10/02/17 00:00 72 10/02/17 00:00 99.7 91 28 138/65 (89) 98 10/02/17 00:00 40 10/01/17 22:00 71 10/01/17 20:00 100 Mechanical Ventilator 50 10/01/17 20:00 98.7 96 25 135/63 (87) 97 10/01/17 20:00 40 10/01/17 20:00 71 10/01/17 19:29 98 40 10/01/17 18:00 86 10/01/17 17:53 100 40 10/01/17 16:00 71 10/01/17 16:00 40 10/01/17 16:00 98.5 86 16 143/68 (93) 98 10/01/17 15:30 100 100 10/01/17 14:00 75 . Laboratory Tests Test 09/30/17 14:33 10/01/17 03:43 10/02/17 11:35 White Blood Count 19.9 TH/MM3 20.0 TH/MM3 15.4 TH/MM3 Red Blood Count 3.85 MIL/MM3 3.95 MIL/MM3 3.35 MIL/MM3 Hemoglobin 10.0 GM/DL 10.3 GM/DL 9.0 GM/DL Hematocrit 31.3 % 31.9 % 26.3 % Mean Corpuscular Volume 81.3 FL 80.6 FL 78.6 FL Mean Corpuscular Hemoglobin 25.9 PG 26.0 PG 27.0 PG Mean Corpuscular Hemoglobin Concent 31.9 % 32.2 % 34.3 % Red Cell Distribution Width 17.0 % 17.1 % 16.8 % Platelet Count 246 TH/MM3 257 TH/MM3 218 TH/MM3 Mean Platelet Volume 8.6 FL 8.5 FL 9.0 FL Neutrophils (%) (Auto) 82.9 % 80.3 % 80.0 % Lymphocytes (%) (Auto) 9.1 % 10.1 % 12.4 % Monocytes (%) (Auto) 7.9 % 9.3 % 6.5 % Eosinophils (%) (Auto) 0.0 % 0.1 % 0.8 % Basophils (%) (Auto) 0.1 % 0.2 % 0.3 % Neutrophils # (Auto) 16.5 TH/MM3 16.1 TH/MM3 12.3 TH/MM3 Lymphocytes # (Auto) 1.8 TH/MM3 2.0 TH/MM3 1.9 TH/MM3 Monocytes # (Auto) 1.6 TH/MM3 1.9 TH/MM3 1.0 TH/MM3 Eosinophils # (Auto) 0.0 TH/MM3 0.0 TH/MM3 0.1 TH/MM3 Basophils # (Auto) 0.0 TH/MM3 0.0 TH/MM3 0.1 TH/MM3 CBC Comment DIFF FINAL AUTO DIFF AUTO DIFF Differential Comment AUTO DIFF CONFIRMED FINAL DIFF MANUAL Differential Total Cells Counted 100 Neutrophils % (Manual) 79 % Band Neutrophils % 9 % Lymphocytes % 10 % Monocytes % 1 % Neutrophils # (Manual) 13.7 TH/MM3 Myelocytes 1 % Toxic Granulation 1+ Toxic Vacuolation PRESENT Platelet Estimate NORMAL Platelet Morphology Comment NORMAL Laboratory Tests Test 09/30/17 14:33 09/30/17 18:01 10/01/17 03:43 10/01/17 17:09 Blood Urea Nitrogen 14 MG/DL 30 MG/DL 43 MG/DL Creatinine 0.88 MG/DL 1.67 MG/DL 2.76 MG/DL Random Glucose 125 MG/DL 103 MG/DL 92 MG/DL Total Protein 8.3 GM/DL 8.0 GM/DL 6.7 GM/DL Albumin 1.8 GM/DL 1.6 GM/DL 1.3 GM/DL Calcium Level 8.6 MG/DL 8.3 MG/DL 8.1 MG/DL Alkaline Phosphatase 111 U/L 109 U/L 96 U/L Aspartate Amino Transf (AST/SGOT) 18 U/L 22 U/L 33 U/L Alanine Aminotransferase (ALT/SGPT) 11 U/L 10 U/L 11 U/L Total Bilirubin 0.7 MG/DL 0.5 MG/DL 0.4 MG/DL Sodium Level 140 MEQ/L 141 MEQ/L 141 MEQ/L Potassium Level 3.3 MEQ/L 3.3 MEQ/L 3.2 MEQ/L Chloride Level 106 MEQ/L 108 MEQ/L 110 MEQ/L Carbon Dioxide Level 19.7 MEQ/L 20.4 MEQ/L 16.8 MEQ/L Anion Gap 14 MEQ/L 13 MEQ/L 14 MEQ/L Estimat Glomerular Filtration Rate 76 ML/MIN 36 ML/MIN 20 ML/MIN Troponin I 0.54 NG/ML Triglycerides Level 150 MG/DL Cholesterol Level 113 MG/DL LDL Cholesterol 66 MG/DL HDL Cholesterol 17.3 MG/DL Cholesterol/HDL Ratio 6.53 RATIO Lactic Acid Level 5.9 mmol/L 2.4 mmol/L 0.5 mmol/L Total Creatine Kinase 510 U/L Creatine Kinase MB 6.3 NG/ML Creatine Kinase MB % 1.2 % Test 10/02/17 11:00 Blood Urea Nitrogen 54 MG/DL Creatinine 3.67 MG/DL Random Glucose 136 MG/DL Total Protein 6.3 GM/DL Albumin 1.2 GM/DL Calcium Level 8.1 MG/DL Alkaline Phosphatase 109 U/L Aspartate Amino Transf (AST/SGOT) 38 U/L Alanine Aminotransferase (ALT/SGPT) 19 U/L Total Bilirubin 0.2 MG/DL Sodium Level 142 MEQ/L Potassium Level 3.0 MEQ/L Chloride Level 104 MEQ/L Carbon Dioxide Level 23.9 MEQ/L Anion Gap 14 MEQ/L Estimat Glomerular Filtration Rate 15 ML/MIN Microbiology Date/Time Source Procedure Growth Status 09/29/17 17:55 Blood Peripheral Aerobic Blood Culture - Final Streptococcus Pneumoniae Complete 09/29/17 17:55 Anaerobic Blood Culture - Final Streptococcus Pneumoniae Complete 09/29/17 17:40 Blood Peripheral Aerobic Blood Culture - Final Streptococcus Pneumoniae Complete 09/29/17 17:40 Anaerobic Blood Culture - Final Streptococcus Pneumoniae Complete 09/30/17 11:30 Cerebral Spinal Fluid Lumbar Puncture Gram Stain - Final Resulted 09/30/17 11:30 Cerebral Spinal Fluid Lumbar Puncture CSF Culture - Preliminary NO GROWTH IN 48 HOURS. Resulted 09/30/17 11:30 Cerebral Spinal Fluid Lumbar Puncture Fungal Smear Pending Received 09/30/17 11:30 Cerebral Spinal Fluid Lumbar Puncture Fungal Culture Pending Received 09/30/17 11:30 Cerebral Spinal Fluid Lumbar Puncture Acid Fast Stain - Final NO ACID FAST BACILLI SEEN Resulted 09/30/17 11:30 Cerebral Spinal Fluid Lumbar Puncture Mycobacterial Culture Pending Resulted 09/29/17 18:00 Nasal Aspirate Influenza Types A,B Antigen (CYNTHIA) - Final NEGATIVE FOR FLU A AND B ANTIGEN.... Complete 10/02/17 04:40 Urine Catheterized Urine Urine Culture Pending Received 09/29/17 17:45 Urine Catheterized Urine Urine Culture - Final Group B Beta Strep Complete Imaging Last Impressions Brain MRI 10/01/17 0000 Signed Impressions: Service Date/Time: Sunday, October 01, 2017 16:08 - CONCLUSION: Widespread punctate subacute infarctions involving multiple vasculature territories bilaterally. Jordy Levin MD Chest X-Ray 09/30/17 0000 Signed Impressions: Service Date/Time: Saturday, September 30, 2017 10:33 - CONCLUSION: Endotracheal tube has its tip 1 cm above the angle. This could be pulled back 2 cm for more optimal positioning. Robby Ann MD Head CT 09/29/17 0000 Signed Impressions: Service Date/Time: Friday, September 29, 2017 21:16 - CONCLUSION: Probable ischemic changes in as described above. MRI would be of benefit. Jon Plata MD FACR Abdomen/Pelvis CT 09/29/17 0000 Signed Impressions: Service Date/Time: Friday, September 29, 2017 21:19 - CONCLUSION: Do not see the etiology of fever with altered mental status.. Diverticuli sigmoid colon without diverticulitis. No gallstones Jon Plata MD FACR Physical Exam CONSTITUTIONAL/GENERAL: This is an obese elderly patient, in no apparent distress. on vent TUBES/LINES/DRAINS: SKIN: No jaundice, rashes, or lesions. Skin temperature appropriate. Not diaphoretic. HEAD: Atraumatic. Normocephalic. EYES: Pupils equal and round and reactive. Extraocular motions intact. No scleral icterus. No injection or drainage. Fundi not examined. ENT: Hearing not tested. Nose without bleeding or purulent drainage. Orally intubated visualised mucosea w/o lesions NECK: Trachea midline. Supple, nontender. CARDIOVASCULAR: Regular rate and rhythm without murmurs, gallops, or rubs. No JVD. Peripheral pulses symmetric. RESPIRATORY/CHEST: Symmetric, unlabored respirations. Clear to auscultation. Breath sounds equal bilaterally. No wheezes, rales, or rhonchi. GASTROINTESTINAL: Abdomen soft, non-tender, nondistended. No hepato-splenomegaly , or palpable masses. No guarding. Bowel sounds present. Incontinent of liquid brown stool GENITOURINARY: Without palpable bladder distension. Koo catheter in place with small amount of yellow urine MUSCULOSKELETAL: Extremities without clubbing, cyanosis, or edema. No joint tenderness or effusion noted. No calf tenderness. No mottling or clubbing. LYMPHATICS: No palpable cervical or supraclavicular adenopathy. NEUROLOGICAL: sedated Not following PSYCHIATRIC: unable to assess Assessment & Plan Remarks Bacterial meningtis 2/2 Strep pneumo Strep pneumo bacteremia Acute VDRF Critically ill, stable Diarrrea, c.diff ARF, oliguric cont CFTX 2 gm q 12 dc vanco monitor creatine Jennifer Nelson MD Oct 02, 2017 14:13
--- NOTE | 2017-10-02 15:18 | HHI.CCPN ---
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 On arrival, BP 134/64, HR 104, O2 sat 97% on RA, Temp 100.8. WBC 18.4. BUN 21. GFR 82. Lactic Acid normal. UA positive for UTI. CXR possible mild failure without consolidation. CT Abdomen/Pelvis no acute findings. CT Head probable ischemic changes anterior limb internal capsule on the left. S/p Blood Cultures positive for gram + cocci 10/10 bottles, Rocephin now, add Vancomycin. 09/30: Continued high grade fever, increasing leukocytosis. Brought to [facility] for labored tachypnea. She is clenching her jaw and possibly seizing. Will intubate and ventilate for airway protection, proceed directly to lumbar puncture, broaden abx coverage. 10/01: Patient intubated and placed on mechanical ventilation yesterday. Underwent lumbar puncture which showed cloudy CSF with CSF studies consistent with bacterial meningitis. Blood cultures with strep pneumo. Patient has already been evaluated by BERNARD Nelson. Currently remains sedated, orally intubated on mechanical ventilation. 10/02: Remains sedated, orally intubated on mechanical ventilation. Tolerating tube feeds. Objective Vital Signs Date Time Temp Pulse Resp B/P (MAP) Pulse Ox O2 Delivery O2 Flow Rate FiO2 10/02/17 12:00 78 10/02/17 12:00 40 10/02/17 11:54 100 10/02/17 08:00 98.1 26 122/70 (87) 10/02/17 07:38 Ventilator 09/30/17 09:57 2.00 Intake and Output 10/02/17 10/02/17 10/03/17 08:00 16:00 00:00 Intake Total 1682 ml Output Total 300 ml Balance 1382 ml Result Diagram: 10/02/17 1135 10/02/17 1100 Other Results Microbiology Date/Time Source Procedure Growth Status 09/29/17 17:55 Blood Peripheral Aerobic Blood Culture - Final Streptococcus Pneumoniae Complete 09/29/17 17:55 Anaerobic Blood Culture - Final Streptococcus Pneumoniae Complete 09/29/17 17:40 Blood Peripheral Aerobic Blood Culture - Final Streptococcus Pneumoniae Complete 09/29/17 17:40 Anaerobic Blood Culture - Final Streptococcus Pneumoniae Complete 09/29/17 18:00 Nasal Aspirate Influenza Types A,B Antigen (CYNTHIA) - Final NEGATIVE FOR FLU A AND B ANTIGEN.... Complete 09/29/17 17:45 Urine Catheterized Urine Urine Culture - Final Group B Beta Strep Complete Imaging Last Impressions Chest X-Ray 09/30/17 0000 Signed Impressions: Service Date/Time: Saturday, September 30, 2017 10:33 - CONCLUSION: Endotracheal tube has its tip 1 cm above the angle. This could be pulled back 2 cm for more optimal positioning. Robby Ann MD Head CT 09/29/17 0000 Signed Impressions: Service Date/Time: Friday, September 29, 2017 21:16 - CONCLUSION: Probable ischemic changes in as described above. MRI would be of benefit. Jon Plata MD FACR Abdomen/Pelvis CT 09/29/17 0000 Signed Impressions: Service Date/Time: Friday, September 29, 2017 21:19 - CONCLUSION: Do not see the etiology of fever with altered mental status.. Diverticuli sigmoid colon without diverticulitis. No gallstones Jon Plata MD FACR Objective Remarks HEENT/ Neuro: Sedated, orally intubated, Pallor present, no icterus, tongue/ mucosa moist Neck: Neck stiffness present, No JVD Chest/Pulm: on mech vent, good air entry bilaterally, no wheezing or crackles CVS: S1-S2 regular, no murmur GI/abdomen: soft, nontender, bowel sounds sluggish Extremities: warm bilaterally, no edema A/P Assessment and Plan Assessment: 1. Severe sepsis. 1a. Bacterial Meningitis. 2. Encephalopathy, infectious. 3. Bacteremia - GPC 4. Acute respiratory failure on mechanical ventilation 5. History of dementia Plan: Neuro: Sedation with propofol, daily sedation vacation. Awaiting MRI brain. EEG. Follow neuro status. Cardiovascular: IV hydration. 1 L LR bolus ordered for elevated lactic acid which is coming down. Watch for hypotension. Levophed for pressor support if needed. Will obtain 2-D echo as patient appears to have a systolic murmur for further evaluation. Pulmonary: Continue mechanical ventilation, vent bundle, bronchodilators as needed. GI/liver: Start tube feeds and advanced to goal as tolerated. Renal/: IV hydration, strict intake output, monitor and replete elect lites, follow BUN/creatinine. Worsening BUN/creatinine possibly related to sepsis versus vancomycin which is being stopped. Nephrology consulted. On bicarbonate drip. ID: Continue antibiotic coverage per Dr. Nelson from ID. Currently on IV Rocephin per ID, Vancomycin stopped 10/02. Blood cultures growing strep pneumo 4 out of 4 bottles. 2-D echo with moderate MR. Endocrine: Watch for hyperglycemia, SSI for glycemic control if needed Heme: Follow CBC Prophylaxis: PPI/SCDs. Subcutaneous Lovenox 24 hours after completion of LP following review of MRI Lines: Right subclavian central line placed 10/02. Explained current clinical status with patient's daughter at bedside in detail including plan of care and she voiced understanding and was agreeable. Overall impression: Patient is critically ill with bacterial meningitis requiring intubation and mechanical ventilation. Critical care 35 mins excluding procedures Maury Siegel MD Oct 02, 2017 15:18
--- NOTE | 2017-10-02 15:21 | PD.PROCEDR ---
Central Line Procedure REASON FOR PROCEDURE Central venous access PROCEDURE PERFORMED Central line placement: Right subclavian vein CONSENT Informed consent for procedure was obtained from family and documented on chart. The risks and benefits of the procedure were discussed to include but limited to bleeding, clot formation, infection. ANESTHESIA Local injection of 1% Lidocaine DESCRIPTION OF THE PROCEDURE The patient was placed in supine, mild Trendelenburg position. The area was exposed and cleansed with ChloraPrep, times two. Large sterile drape was used to cover the patient, with the site exposed, under sterile conditions including cap, face mask, sterile gown, and sterile gloves. On single attempt, the introducer needle was inserted with negative pressure in syringe and venous flash was obtained. The guide wire was then advanced without any restriction and the needle was removed. The dilator was used without any complications. Using Seldinger technique the 20 cm antimicrobial coated triple lumen catheter was advanced over the guide wire to a depth of 15 centimeters. The guide wire was removed. All ports were aspirated with dark venous blood return and flushed easily with sterile saline. All ports were capped. Antibiotic disc was placed around central line at puncture site. The central line was secured to the skin with a stat lock. The area was bandaged with sterile see-through central line bandage. COMPLICATIONS: No apparent complications ESTIMATED BLOOD LOSS: Less than 1 cc. Maury Siegel MD Oct 02, 2017 15:21
[2017-10-02] MEDS: FUROSEMIDE 40 MG/4 ML VIAL IV PUSH SCH (21:09)
[2017-10-02] MEDS: ATORVASTATIN 10 MG TAB PO SCH (21:10)
[2017-10-02 23:43] LABS: ENTEROVIRUS PCR RESULT Negative (Negative); ENTEROVIRUS PCR SPEC SOURCE CSF
[2017-10-03] VITALS (18 sets, daily range): BP systolic 99–142; BP diastolic 57–65; PULSE 70–94; RESP 22–30; TEMP 97.6–99.8; O2SAT 96–100
[2017-10-03] MEDS: cefTRIAXone INJ 2,000 MG in SODIUM CHLORIDE 0.9% INJ 100 ML IV SCH ×2 (01:01→13:00)
[2017-10-03] MEDS: SODIUM BICARBONATE 8.4% INJ 150 MEQ in WATER STERILE FOR INJ 850 ML IV SCH ×3 (01:03→21:25)
[2017-10-03] MEDS: PROPOFOL 1000 MG/100 ML INJ 100 ML IV PRN (01:40)
[2017-10-03] MEDS: FUROSEMIDE 40 MG/4 ML VIAL IV PUSH SCH ×3 (05:49→21:00)
[2017-10-03 06:16] LABS: BICARBONATE 30.9 MEQ/L (21.0-32.0); CALCIUM 7.8 MG/DL (8.5-10.1); CREATININE 4.52 MG/DL (0.50-1.00); PHOSPHORUS 3.1 MG/DL (2.5-4.9)
[2017-10-03] MEDS: INSULIN ASPART SUPPLEMENTAL SCALE SQ SCH ×3 (08:00→17:34)
[2017-10-03] MEDS: CHLORHEXIDINE 0.12% (ORAL KIT) 15 ML CUP MT SCH ×2 (08:00→21:24)
[2017-10-03] MEDS: POTASSIUM CHLOR 10 MEQ PREMIX 100 ML IV SCH ×2 (08:15→10:04)
[2017-10-03] MEDS: SODIUM CHLORIDE 0.9% FLUSH 10 ML FLUSH IV FLUSH SCH ×2 (08:16→21:01)
--- NOTE | 2017-10-03 08:48 | HHI.CCPN ---
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 On arrival, BP 134/64, HR 104, O2 sat 97% on RA, Temp 100.8. WBC 18.4. BUN 21. GFR 82. Lactic Acid normal. UA positive for UTI. CXR possible mild failure without consolidation. CT Abdomen/Pelvis no acute findings. CT Head probable ischemic changes anterior limb internal capsule on the left. S/p Blood Cultures positive for gram + cocci 10/10 bottles, Rocephin now, add Vancomycin. 09/30: Continued high grade fever, increasing leukocytosis. Brought to [facility] for labored tachypnea. She is clenching her jaw and possibly seizing. Will intubate and ventilate for airway protection, proceed directly to lumbar puncture, broaden abx coverage. 10/01: Patient intubated and placed on mechanical ventilation yesterday. Underwent lumbar puncture which showed cloudy CSF with CSF studies consistent with bacterial meningitis. Blood cultures with strep pneumo. Patient has already been evaluated by BERNARD Nelson. Currently remains sedated, orally intubated on mechanical ventilation. 10/02: Remains sedated, orally intubated on mechanical ventilation. Tolerating tube feeds. Subjective 10/03: Tolerated CPAP trial 2 hours yesterday. Back on propofol drip for sedation. Minimal urine output overnight. Tolerating tube feeding. Objective Vital Signs Date Time Temp Pulse Resp B/P (MAP) Pulse Ox O2 Delivery O2 Flow Rate FiO2 10/03/17 07:24 100 40 10/03/17 07:00 Mechanical Ventilator 10/03/17 06:00 75 10/03/17 04:00 97.6 30 99/57 (71) 10/02/17 19:00 2.00 Intake and Output 10/03/17 10/03/17 10/04/17 08:00 16:00 00:00 Intake Total 1200 ml Output Total 150 ml Balance 1050 ml Result Diagram: 10/02/17 1135 10/03/17 0530 Other Results Microbiology Date/Time Source Procedure Growth Status 09/29/17 17:55 Blood Peripheral Aerobic Blood Culture - Final Streptococcus Pneumoniae Complete 09/29/17 17:55 Anaerobic Blood Culture - Final Streptococcus Pneumoniae Complete 09/30/17 11:30 Cerebral Spinal Fluid Lumbar Puncture Gram Stain - Final Resulted 09/30/17 11:30 Cerebral Spinal Fluid Lumbar Puncture CSF Culture - Preliminary NO GROWTH IN 48 HOURS. Resulted 09/29/17 18:00 Nasal Aspirate Influenza Types A,B Antigen (CYNTHIA) - Final NEGATIVE FOR FLU A AND B ANTIGEN.... Complete 10/02/17 04:40 Urine Catheterized Urine Urine Culture Pending Received Imaging Last Impressions Chest X-Ray 10/02/17 0000 Signed Impressions: Service Date/Time: Monday, October 02, 2017 11:03 - CONCLUSION: 1. Mild basilar airspace disease. Endotracheal tube, nasogastric tube and right central line in good position. No pneumothorax. Vlad Perez MD Brain MRI 10/01/17 0000 Signed Impressions: Service Date/Time: Sunday, October 01, 2017 16:08 - CONCLUSION: Widespread punctate subacute infarctions involving multiple vasculature territories bilaterally. Jordy Levin MD Head CT 09/29/17 0000 Signed Impressions: Service Date/Time: Friday, September 29, 2017 21:16 - CONCLUSION: Probable ischemic changes in as described above. MRI would be of benefit. Jon Plata MD FACR Abdomen/Pelvis CT 09/29/17 0000 Signed Impressions: Service Date/Time: Friday, September 29, 2017 21:19 - CONCLUSION: Do not see the etiology of fever with altered mental status.. Diverticuli sigmoid colon without diverticulitis. No gallstones Jon Plata MD FACR Objective Remarks GENERAL: 72 YO AAF currently orotracheally intubated SKIN: Warm and dry. No rash HEAD: Atraumatic. Normocephalic. EYES: Pupils equal and round about 1 mm bilaterally and pinpoint. No scleral icterus. No injection or drainage. ENT: No nasal bleeding or discharge. Mucous membranes pink and moist. NECK: Trachea midline. No JVD. CARDIOVASCULAR: Regular rate and rhythm. S1, S2 no S4. II/ systolic murmur RESPIRATORY: Clear to auscultation. Breath sounds equal bilaterally. GASTROINTESTINAL: Abdomen soft, non-tender, nondistended. Hypoactive bowel sounds are appreciated MUSCULOSKELETAL: Extremities with trace bilateral lower extremity edema. No obvious deformities. NEUROLOGICAL: Sedated on midazolam drip. Positive gag and cough. Positive corneal reflex. Downward toes bilaterally. Subjectively left side weaker than right Urinary Catheter: Yes Assessment to: Continue Koo insert reason: Prolonged Immobilization Vascular Central Line Catheter: Yes Assessment to: Continue Date of Insertion: Oct 02, 2017 Line: Central Venous Catheter Side: Right Location: Subclavian A/P Assessment and Plan Neuro/Psych: Acute bilateral CVA Bacterial meningitis Dementia Depression/anxiety Elevated intraocular pressures Currently on propofol drip at 20 mcg/kg/min for sedation while intubated Goal of RA SS -2 Daily sedation vacation Acetaminophen 650 mg by tube every 6 hours. Fever Latanoprost 0.005% 1 drop each eye at night Sedation with propofol, daily sedation vacation. Awaiting MRI brain. EEG. Follow neuro status. CT brain on admission revealed ischemic change anterior limb of internal capsule left side. MRI brain 10/01 revealed widespread bilateral subacute infarction largest in the left parietal occipital region. 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 Continue donepezil 10 mg p.o. daily Cardiovascular: History of hypertension Moderate MR Holding amlodipine 10 mg daily/home medication for hypertension. Resume clinically indicated Currently on sterile water with 3 ampules of bicarbonate 100 cc an hour 2D echocardiogram revealed EF 75%. LVH. Moderate MR. Mild TR/VA On atorvastatin 10 mg daily for dyslipidemia Pulmonary: Acute respiratory failure PRVC 16/500/1.2/5/40 Ventilator bundle Albuterol/ipratropium aerosols every 6 hours with albuterol aerosols every 2 hours as needed for dyspnea PSV trials daily GI/liver: Hypoalbuminemia Descending colon Diverticulosis Currently Nepro goal 45 cc now. Nutrition recommended vital high-protein 65 cc an hour. Adjust secondary to acute kidney injury Lansoprazole 30 mg by tube daily for GI prophylaxis Docusate sodium/senna 1 tablet twice daily for bowel regimen 5 bowel movements documented 10/01 CT abdomen/pelvis revealed descending colon diverticulosis. No diverticulitis. Renal/: Acute kidney injury No hydronephrosis Urine eosinophils negative. Intrinsic renal by urine electrolytes Followed by nephrology. Currently on furosemide 40 mg IV every 8 hours with sterile water with 3 ampules sodium bicarbonate at 100 cc now. ID: Strep pneumonia bacteremia/meningitis Continue antibiotic coverage per Dr. Nelson from ID. Currently on IV ceftriaxone 2 g IV every 12 hours per ID, Vancomycin stopped 10/02. 09/29 blood cultures growing strep pneumo 4 out of 4 bottles. 09/30 -CSF -no growth HSV PCR negative Endocrine: Sliding scale insulin Accu-Cheks every 6 hours to maintain euglycemia with Novulog low regimen Heme: Leukocytosis Microcytic anemia Follow CBC. Follow trends FEN: Hypokalemia 20 meq KCl IV 1 now. Recheck this afternoon MSK: Osteoarthritis Holding meloxicam 7.5 mg p.o. daily. PT evaluate and treat Prophylaxis: Lansoprazole 30 mg by tube daily iSCDs. Subcutaneous heparin 5000 units every 12 hours Lines: Right subclavian central line placed 10/02. Explained current clinical status with patient's daughter at bedside in detail including plan of care and she voiced understanding and was agreeable. Level 3 follow-up Bobby Machado MD Oct 03, 2017 08:48
[2017-10-03] MEDS: ASPIRIN 81 MG CHEW TAB PO SCH (09:00)
[2017-10-03] MEDS: DOCUSATE SODIUM 50 MG/SENNA 8.6 MG TAB PO SCH ×2 (09:00→21:00)
[2017-10-03] MEDS ORDERED: ESCITALOPRAM OXALATE 20 MG TAB PO SCH (09:00)
[2017-10-03] MEDS: LANSOPRAZOLE SOLUTAB 30 MG TAB NG SCH (09:00)
[2017-10-03] MEDS: HEPARIN SODIUM - SQ 10,000 UNITS/ML VIAL SQ SCH ×2 (09:00→21:00)
[2017-10-03] MEDS ORDERED: PHARMACY ORDERED LAB ONE (10:45)
[2017-10-03] MEDS: ACETAMINOPHEN 650 MG/20.3 ML UDC NG PRN ×2 (11:00→18:00)
[2017-10-03 12:06] LABS: CSF CRYPTOCOCCUS AG CONF ND (NOT DETECTD)
[2017-10-03] MEDS: ARTIFICIAL TEARS OPTH SOLN 15 ML BTL EACH EYE SCH ×2 (14:00→21:01)
[2017-10-03 15:04] LABS: AUTOMATED NEUTROPHIL # 11.8 TH/MM3 (1.8-7.7); BASOPHIL # 0.1 TH/MM3 (0-0.2); BASOPHIL % 0.5 % (0.0-2.0); EOSINOPHIL # 0.2 TH/MM3 (0-0.4); EOSINOPHIL % 1.3 % (0.0-4.0); HEMATOCRIT 24.8 % (35.0-46.0); HEMOGLOBIN 8.4 GM/DL (11.6-15.3); LYMPH % 11.1 % (9.0-44.0); LYMPHOCYTE # 1.6 TH/MM3 (1.0-4.8); MEAN CELL VOLUME 78.6 FL (80.0-100.0); MEAN CORPUSCULAR HEMOGLOBIN 26.5 PG (27.0-34.0); MEAN CORPUSCULAR HGB CONC 33.7 % (32.0-36.0); MONO % 7.3 % (0.0-8.0); MONOCYTE # 1.1 TH/MM3 (0-0.9); NEUT % 79.8 % (16.0-70.0); PLATELET COUNT 235 TH/MM3 (150-450); RED BLOOD COUNT 3.16 MIL/MM3 (4.00-5.30); RED CELL DISTRIBUTION WIDTH 16.2 % (11.6-17.2); WHITE BLOOD COUNT 14.8 TH/MM3 (4.0-11.0)
[2017-10-03 15:05] LABS: ANA SCREEN POS (NEG)
--- NOTE | 2017-10-03 15:44 | HHI.NPPN ---
Subjective General Problems: Anemia Renal Failure: Acute History of Present Illness Patient is a 72-year-old female with a PMH of Anxiety, Depression, Dementia and HTN who is brought to the ER by Knitter Machine secondary to AMS and fever of 102. Patient unable to provide any history at this time, history obtained from records and and daughter. UA positive for UTI. CXR possible mild failure without consolidation. CT Abdomen/Pelvis no acute findings. CT Head probable ischemic changes anterior limb internal capsule on the left. Patient is intubated FiO2 at 40 %. BC with streptococcus pneumoniae. Patient has received vancomycin and Rocephin. Nephrology is consulted for acute change in renal function with a creatinine of 2.76 with a drop in UOP at 300 ml over 24 hours. Patient is also noted to have a CO2 level of 16.8 this morning and is on a sodium bicarbonate gtt. 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 Patient admission creatinine was 0.83. Additional Remarks Remains on ventilator. Edema noted. (Charissa Jones) Review of Systems General General Remarks Unable to ROS patient is intubated (Cahrissa Jones) Objective Data Data Vital Signs Date Time Temp Pulse Resp B/P (MAP) Pulse Ox O2 Delivery O2 Flow Rate FiO2 10/03/17 15:15 85 10/03/17 12:15 100 40 10/03/17 12:00 78 10/03/17 12:00 40 10/03/17 12:00 99.0 82 22 114/60 (78) 100 10/03/17 10:00 85 10/03/17 09:50 40 10/03/17 08:00 40 10/03/17 08:00 98.0 80 24 111/59 (76) 100 10/03/17 08:00 70 10/03/17 07:24 100 40 10/03/17 07:00 100 Mechanical Ventilator 40 10/03/17 06:00 75 10/03/17 04:00 40 10/03/17 04:00 70 10/03/17 04:00 97.6 70 30 99/57 (71) 99 10/03/17 03:52 99 40 10/03/17 02:00 71 10/03/17 00:00 99.8 86 30 132/62 (85) 100 3/28/18 00:00 85 10/03/17 00:00 40 10/02/17 23:52 98 40 10/02/17 22:00 80 10/02/17 20:00 94 10/02/17 20:00 99.0 75 17 143/65 (91) 100 10/02/17 20:00 40 10/02/17 19:35 100 40 10/02/17 19:00 100 Mechanical Ventilator 2.00 40 10/02/17 18:00 74 10/02/17 17:02 100 40 10/02/17 17:02 40 10/02/17 16:00 98.0 80 20 131/61 (84) 99 10/02/17 16:00 78 10/02/17 16:00 40 (Charissa Jones) -: 10/03/17 1435 10/03/17 0530 Imaging Last Impressions Chest X-Ray 10/02/17 0000 Signed Impressions: Service Date/Time: Monday, October 02, 2017 11:03 - CONCLUSION: 1. Mild basilar airspace disease. Endotracheal tube, nasogastric tube and right central line in good position. No pneumothorax. Vlad Perez MD Brain MRI 10/01/17 0000 Signed Impressions: Service Date/Time: Sunday, October 01, 2017 16:08 - CONCLUSION: Widespread punctate subacute infarctions involving multiple vasculature territories bilaterally. Jordy Levin MD Head CT 09/29/17 0000 Signed Impressions: Service Date/Time: Friday, September 29, 2017 21:16 - CONCLUSION: Probable ischemic changes in as described above. MRI would be of benefit. Jon Plata MD FACR Abdomen/Pelvis CT 09/29/17 0000 Signed Impressions: Service Date/Time: Friday, September 29, 2017 21:19 - CONCLUSION: Do not see the etiology of fever with altered mental status.. Diverticuli sigmoid colon without diverticulitis. No gallstones Jon Plata MD FACR Tubes & Lines: Villanueva (Charissa Jones) Physical Exam General Appearance: No Acute Distress Appearance Remarks intubated (Charissa Jones) Pulmonary Resp Exam: Breath Sounds Equal, No Distress, Diminished Breath Sounds (Charissa Jones) Cardiology CV Exam: Regular (Charissa Jones) Gastrointestinal/Abdomen GI Exam: Soft, Non-Tender, Distended (Charissa Jones) Genitourinary Exam: Flank Non-Tender Remarks indwelling villanueva catheter (Charissa Jones) Integumentary Skin Exam: Clear, Warm (Charissa Jones) Extremeties Extremities Exam: Moderate Edema (Charissa Jones) Neurologic Neuro Exam: Sedated (Charissa Jones) Assessment/Plan Problem List: (1) SEVERINO (acute kidney injury) ICD Codes: N17.9 - Acute kidney failure, unspecified Plan: Acute kidney injury with a creatinine of 2.76 up from 1.67 yesterday. On admission creatinine was less than 1. SEVERINO possible ATN with a FeNA of 18. Possible related to [place] or infection. UOP is at 250 ml over past [address] of abdomen: Nonobstructing 7 mm right renal stone noted. Plan Sodium bicarbonate gtt Continue lasix every 8 hours Hypokalemia with replacement given recheck is pending Maintain Strict I+O Monitor UOP and BMP Avoid nephrotoxins when possible Serology pending. Creatinine is increasing with poor UOP however potassium is not elevated. Patient will most likely need dialysis. Discussed with DTR. (2) Bacteremia ICD Codes: R78.81 - Bacteremia Plan: continue antibiotics renal dosing. (3) Hypertension, essential ICD Codes: I10 - Hypertension, essential Status: Acute Plan: Well controlled. (4) CVA (cerebral vascular accident) ICD Codes: I63.9 - Cerebral infarction, unspecified Plan: Neurology consulted and managing. (Charissa Jones) Problem List: (1) SEVERINO (acute kidney injury) ICD Codes: N17.9 - Acute kidney failure, unspecified Plan: Acute kidney injury with a creatinine of 2.76 up from 1.67 yesterday. On admission creatinine was less than 1. SEVERINO possible ATN with a FeNA of 18. Possible related to [place] or infection. UOP is at 250 ml over past [address] of abdomen: Nonobstructing 7 mm right renal stone noted. Plan Sodium bicarbonate gtt Continue lasix every 8 hours Hypokalemia with replacement given recheck is pending Maintain Strict I+O Monitor UOP and BMP Avoid nephrotoxins when possible Serology pending. Creatinine is increasing with poor UOP however potassium is not elevated. Patient will most likely need dialysis. Discussed with DTR. Patient seen and examined, agree with above. Continue Lasix for now, if not better, possible HD. No urgent indication for HD at present. D/W the daughter at bed side. (2) Bacteremia ICD Codes: R78.81 - Bacteremia Plan: continue antibiotics renal dosing. (3) Hypertension, essential ICD Codes: I10 - Hypertension, essential Status: Acute Plan: Well controlled. (4) CVA (cerebral vascular accident) ICD Codes: I63.9 - Cerebral infarction, unspecified Plan: Neurology consulted and managing. (Kingston Kirby MD) Charissa Jones Oct 03, 2017 15:44 Kingston Kirby MD Oct 03, 2017 18:42
[2017-10-03 18:24] LABS: HEMOGLOBIN A1C 5.8 % (4.3-6.0)
[2017-10-03 19:52] LABS: CSF CRYPTOCOCCUS ANTIGEN NOT DETECTED (NEGATIVE)
[2017-10-03] MEDS: LATANOPROST 0.005% OPHT SOLN 2.5 ML BTL EACH EYE SCH (21:00)
[2017-10-03] MEDS: ATORVASTATIN 10 MG TAB PO SCH (21:01)
[2017-10-03] MEDS: DONEPEZIL HCL 5 MG TAB PO SCH (21:01)
[2017-10-04] VITALS (17 sets, daily range): BP systolic 119–154; BP diastolic 58–70; PULSE 89–106; RESP 19–24; TEMP 99–100.1; O2SAT 98–100
[2017-10-04] MEDS: cefTRIAXone INJ 2,000 MG in SODIUM CHLORIDE 0.9% INJ 100 ML IV SCH ×2 (00:07→13:00)
[2017-10-04 03:49] LABS: HAEMOPHILUS FLU AG TYPE B Not Detected (Not Detected)
[2017-10-04] MEDS: ARTIFICIAL TEARS OPTH SOLN 15 ML BTL EACH EYE SCH ×3 (05:39→21:18)
[2017-10-04] MEDS: INSULIN ASPART SUPPLEMENTAL SCALE SQ SCH ×5 (05:39→23:09)
[2017-10-04] MEDS: FUROSEMIDE 40 MG/4 ML VIAL IV PUSH SCH ×3 (05:39→21:18)
[2017-10-04 07:41] LABS: AUTOMATED NEUTROPHIL # 15.2 TH/MM3 (1.8-7.7); BASOPHIL # 0.1 TH/MM3 (0-0.2); BASOPHIL % 0.4 % (0.0-2.0); EOSINOPHIL # 0.2 TH/MM3 (0-0.4); EOSINOPHIL % 1.2 % (0.0-4.0); HEMATOCRIT 25.7 % (35.0-46.0); HEMOGLOBIN 8.5 GM/DL (11.6-15.3); LYMPH % 10.7 % (9.0-44.0); MEAN CELL VOLUME 78.2 FL (80.0-100.0); MEAN CORPUSCULAR HEMOGLOBIN 25.9 PG (27.0-34.0); MEAN CORPUSCULAR HGB CONC 33.1 % (32.0-36.0); MEAN PLATELET VOLUME 9.2 FL (7.0-11.0); MONO % 6.5 % (0.0-8.0); MONOCYTE # 1.2 TH/MM3 (0-0.9); NEUT % 81.2 % (16.0-70.0); PLATELET COUNT 261 TH/MM3 (150-450); RED BLOOD COUNT 3.28 MIL/MM3 (4.00-5.30); RED CELL DISTRIBUTION WIDTH 16.3 % (11.6-17.2); WHITE BLOOD COUNT 18.7 TH/MM3 (4.0-11.0)
[2017-10-04] MEDS ORDERED: POTASSIUM CHLORIDE INJ 30 MEQ in SODIUM CHLORIDE 0.9% INJ 100 ML IV-CENTRAL ONE (08:00)
[2017-10-04] MEDS: CHLORHEXIDINE 0.12% (ORAL KIT) 15 ML CUP MT SCH ×2 (08:00→20:07)
--- NOTE | 2017-10-04 08:05 | HHI.CCPN ---
Subjective Remarks/Hospital Course 09/29: This is a 72-year-old female with a PMH of Anxiety, Depression, Dementia and HTN who is brought to the ER by [employer] secondary to AMS and fever of 102. 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 On arrival, BP 134/64, HR 104, O2 sat 97% on RA, Temp 100.8. WBC 18.4. BUN 21. GFR 82. Lactic Acid normal. UA positive for UTI. CXR possible mild failure without consolidation. CT Abdomen/Pelvis no acute findings. CT Head probable ischemic changes anterior limb internal capsule on the left. S/p Blood Cultures positive for gram + cocci 10/10 bottles, Rocephin now, add Vancomycin. 09/30: Continued high grade fever, increasing leukocytosis. Brought to [facility] for labored tachypnea. She is clenching her jaw and possibly seizing. Will intubate and ventilate for airway protection, proceed directly to lumbar puncture, broaden abx coverage. 10/01: Patient intubated and placed on mechanical ventilation yesterday. Underwent lumbar puncture which showed cloudy CSF with CSF studies consistent with bacterial meningitis. Blood cultures with strep pneumo. Patient has already been evaluated by BERNARD Nelson. Currently remains sedated, orally intubated on mechanical ventilation. 10/02: Remains sedated, orally intubated on mechanical ventilation. Tolerating tube feeds. 10/03: Tolerated CPAP trial 2 hours yesterday. Back on propofol drip for sedation. Minimal urine output overnight. Tolerating tube feeding. Subjective 10/04: T-max 99.8. 350 cc urine output past 24 hours. 100 cc stool. Withdraws bilateral upper and lower extremities. Grasp. Positive gag and cough. Positive corneal reflex Objective Vital Signs Date Time Temp Pulse Resp B/P (MAP) Pulse Ox O2 Delivery O2 Flow Rate FiO2 10/04/17 06:00 105 10/04/17 04:19 100 40 10/04/17 04:00 99.8 24 154/70 (98) 10/03/17 19:00 Mechanical Ventilator 10/02/17 19:00 2.00 Intake and Output 10/04/17 10/04/17 10/05/17 08:00 16:00 00:00 Intake Total 525 ml Output Total 300 ml Balance 225 ml Result Diagram: 10/04/17 0600 10/03/17 1435 Other Results Microbiology Date/Time Source Procedure Growth Status 09/29/17 17:55 Blood Peripheral Aerobic Blood Culture - Final Streptococcus Pneumoniae Complete 09/29/17 17:55 Anaerobic Blood Culture - Final Streptococcus Pneumoniae Complete 09/30/17 11:30 Cerebral Spinal Fluid Lumbar Puncture Gram Stain - Final Complete 09/30/17 11:30 Cerebral Spinal Fluid Lumbar Puncture CSF Culture - Final NO GROWTH IN 72 HOURS Complete 09/29/17 18:00 Nasal Aspirate Influenza Types A,B Antigen (CYNTHIA) - Final NEGATIVE FOR FLU A AND B ANTIGEN.... Complete 10/02/17 04:40 Urine Catheterized Urine Urine Culture - Preliminary NO GROWTH IN 24 HOURS. Resulted Imaging Last Impressions Chest X-Ray 10/02/17 0000 Signed Impressions: Service Date/Time: Monday, October 02, 2017 11:03 - CONCLUSION: 1. Mild basilar airspace disease. Endotracheal tube, nasogastric tube and right central line in good position. No pneumothorax. Vlad Perez MD Brain MRI 10/01/17 0000 Signed Impressions: Service Date/Time: Sunday, October 01, 2017 16:08 - CONCLUSION: Widespread punctate subacute infarctions involving multiple vasculature territories bilaterally. Jordy Levin MD Head CT 09/29/17 0000 Signed Impressions: Service Date/Time: Friday, September 29, 2017 21:16 - CONCLUSION: Probable ischemic changes in as described above. MRI would be of benefit. Jon Plata MD FACR Abdomen/Pelvis CT 09/29/17 0000 Signed Impressions: Service Date/Time: Friday, September 29, 2017 21:19 - CONCLUSION: Do not see the etiology of fever with altered mental status.. Diverticuli sigmoid colon without diverticulitis. No gallstones Jon Plata MD FACR Objective Remarks GENERAL: 72 YO AAF currently orotracheally intubated SKIN: Warm and dry. No rash HEAD: Atraumatic. Normocephalic. EYES: Pupils equal and round about 1 mm bilaterally and pinpoint. No scleral icterus. No injection or drainage. ENT: No nasal bleeding or discharge. Mucous membranes pink and moist. NECK: Trachea midline. No JVD. CARDIOVASCULAR: Regular rate and rhythm. S1, S2 no S4. II/ systolic murmur RESPIRATORY: Clear to auscultation. Breath sounds equal bilaterally. GASTROINTESTINAL: Abdomen soft, non-tender, nondistended. Hypoactive bowel sounds are appreciated MUSCULOSKELETAL: Extremities with trace bilateral lower extremity edema. No obvious deformities. NEUROLOGICAL: Sedated on midazolam drip. Positive gag and cough. Positive corneal reflex. Downward toes bilaterally. Subjectively left side weaker than right Urinary Catheter: Yes Assessment to: Continue Koo insert reason: ICU Pt Getting Diuretics Vascular Central Line Catheter: Yes Assessment to: Continue Date of Insertion: Oct 02, 2017 Line: Central Venous Catheter Side: Right Location: Subclavian A/P Assessment and Plan Neuro/Psych: Acute bilateral CVA Bacterial meningitis Dementia Depression/anxiety Elevated intraocular pressures Written for propofol drip but currently off for sedation while intubated Goal of RASS -2 Daily sedation vacation Acetaminophen 650 mg by tube every 6 hours. Fever Latanoprost 0.005% 1 drop each eye at night Sedation with propofol, daily sedation vacation. Awaiting MRI brain. EEG. Follow neuro status. CT brain on admission revealed ischemic change anterior limb of internal capsule left side. MRI brain 10/01 revealed widespread bilateral subacute infarction largest in the left parietal occipital region. 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 Continue donepezil 10 mg p.o. daily Cardiovascular: History of hypertension Moderate MR Holding amlodipine 10 mg daily/home medication for hypertension. Resume clinically indicated Currently on sterile water with 3 ampules of bicarbonate 100 cc an hour 2D echocardiogram revealed EF 75%. LVH. Moderate MR. Mild TR/OK On atorvastatin 10 mg daily for dyslipidemia Pulmonary: Acute respiratory failure [facility] [address]/1.2/40 Ventilator bundle Albuterol/ipratropium aerosols every 6 hours with albuterol aerosols every 2 hours as needed for dyspnea PSV trials daily GI/liver: Hypoalbuminemia Descending colon Diverticulosis Currently Nepro goal 45 cc now. Nutrition recommended vital high-protein 65 cc an hour. Adjust secondary to acute kidney injury Lansoprazole 30 mg by tube daily for GI prophylaxis Docusate sodium/senna 1 tablet twice daily for bowel regimen 5 bowel movements documented 10/01. [address] abdomen/pelvis revealed descending colon diverticulosis. No diverticulitis. Renal/: Acute kidney injury No hydronephrosis Urine eosinophils negative. Intrinsic renal by urine electrolytes Followed by nephrology. Currently on furosemide 40 mg IV every 8 hours with sterile water with 3 ampules sodium bicarbonate at 100 cc now.. A.m. laboratories currently pending ID: Strep pneumonia bacteremia/meningitis Continue antibiotic coverage per Dr. Nelson from ID. Currently on IV ceftriaxone 2 g IV every 12 hours per ID, Vancomycin stopped 10/02. 09/29 blood cultures growing strep pneumo 4 out of 4 bottles. 09/30 -CSF -no growth HSV PCR negative Endocrine: Sliding scale insulin Accu-Cheks every 6 hours to maintain euglycemia with Novulog low regimen Heme: Leukocytosis Microcytic anemia Follow CBC. Follow trends FEN: Hypokalemia 20 meq KCl IV 1 now. Recheck this afternoon MSK: Osteoarthritis Holding meloxicam 7.5 mg p.o. daily. PT evaluate and treat Prophylaxis: Lansoprazole 30 mg by tube daily iSCDs. Subcutaneous heparin 5000 units every 12 hours Lines: Right subclavian central line placed 10/02. Explained current clinical status with patient's daughter at bedside in detail including plan of care and she voiced understanding and was agreeable. Level 3 follow-up Bobby Machado MD Oct 04, 2017 08:05
[2017-10-04 08:20] LABS: ALBUMIN 1.1 GM/DL (3.4-5.0); ALKALINE PHOSPHATASE 120 U/L (45-117); ALT (GPT) 20 U/L (10-53); AST (GOT) 29 U/L (15-37); BICARBONATE 33.4 MEQ/L (21.0-32.0); BLOOD UREA NITROGEN 78 MG/DL (7-18); CHLORIDE 92 MEQ/L (98-107); CREATININE 5.14 MG/DL (0.50-1.00); GLOMERULAR FILTRATION RATE 10 ML/MIN (>89); GLUCOSE,RANDOM 117 MG/DL (74-106); MAGNESIUM 2.4 MG/DL (1.5-2.5); SODIUM (NA) 139 MEQ/L (136-145); TOTAL BILIRUBIN ADULT 0.3 MG/DL (0.2-1.0); TOTAL PROTEIN 6.5 GM/DL (6.4-8.2)
[2017-10-04] MEDS: DOCUSATE SODIUM 50 MG/SENNA 8.6 MG TAB PO SCH ×2 (08:28→20:41)
[2017-10-04] MEDS: ASPIRIN 81 MG CHEW TAB PO SCH (08:29)
[2017-10-04] MEDS: LANSOPRAZOLE SOLUTAB 30 MG TAB NG SCH (08:29)
[2017-10-04] MEDS: HEPARIN SODIUM - SQ 10,000 UNITS/ML VIAL SQ SCH ×2 (08:29→20:42)
[2017-10-04] MEDS: SODIUM CHLORIDE 0.9% FLUSH 10 ML FLUSH IV FLUSH SCH ×2 (09:00→20:42)
--- NOTE | 2017-10-04 09:51 | HHI.NPPN ---
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 Patient unable to provide any history at this time, history obtained from records and and daughter. UA positive for UTI. CXR possible mild failure without consolidation. CT Abdomen/Pelvis no acute findings. CT Head probable ischemic changes anterior limb internal capsule on the left. Patient is intubated FiO2 at 40 %. BC with streptococcus pneumoniae. Patient has received vancomycin and Rocephin. Nephrology is consulted for acute change in renal function with a creatinine of 2.76 with a drop in UOP at 300 ml over 24 hours. Patient is also noted to have a CO2 level of 16.8 this morning and is on a sodium bicarbonate gtt. 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 Patient admission creatinine was 0.83. Additional Remarks Remains on ventilator. DTR at bedside. Generalized edema. (Charissa Jones) Review of Systems General General Remarks Unable to ROS patient is intubated (Charissa Jones) Objective Data Data Vital Signs Date Time Temp Pulse Resp B/P (MAP) Pulse Ox O2 Delivery O2 Flow Rate FiO2 10/04/17 07:53 99 40 10/04/17 06:00 105 10/04/17 04:19 100 40 10/04/17 04:00 94 10/04/17 04:00 40 10/04/17 04:00 99.8 93 24 154/70 (98) 100 10/04/17 02:00 96 10/04/17 00:00 99.4 89 22 136/64 (88) 99 10/04/17 00:00 89 10/04/17 00:00 40 10/03/17 23:54 96 40 10/03/17 22:00 87 10/03/17 20:37 100 40 10/03/17 20:00 85 10/03/17 20:00 40 10/03/17 20:00 99.0 94 23 142/65 (90) 100 10/03/17 19:00 100 Mechanical Ventilator 40 10/03/17 18:00 85 10/03/17 16:46 100 40 10/03/17 16:00 40 10/03/17 16:00 99.0 82 22 114/60 (78) 100 10/03/17 16:00 78 10/03/17 15:15 85 10/03/17 12:15 100 40 10/03/17 12:00 78 10/03/17 12:00 40 10/03/17 12:00 99.0 82 22 114/60 (78) 100 10/03/17 10:00 85 10/03/17 09:50 40 (Charissa Jones) -: 10/04/17 0600 10/04/17 0600 Tubes & Lines: Villanueva (Charissa Jones) Physical Exam General Appearance: No Acute Distress Appearance Remarks intubated (Charissa Jones) Pulmonary Resp Exam: Breath Sounds Equal, No Distress, Diminished Breath Sounds (Charissa Jones) Cardiology CV Exam: Regular (Charissa Jones) Gastrointestinal/Abdomen GI Exam: Soft, Non-Tender, Distended (Charissa Jones) Genitourinary Exam: Flank Non-Tender Remarks indwelling villanueva catheter (Charissa Jones) Integumentary Skin Exam: Clear, Warm (Charissa Jones) Extremeties Extremities Exam: Moderate Edema (Charissa Jones) Neurologic Neuro Exam: Sedated (Charissa Jones) Assessment/Plan Problem List: (1) SEVERINO (acute kidney injury) ICD Codes: N17.9 - Acute kidney failure, unspecified Plan: Acute kidney injury with a creatinine of 2.76 up from 1.67 yesterday. On admission creatinine was less than 1. SEVERINO possible ATN with a FeNA of 18. Possible related to [place] or infection. 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 of abdomen: Nonobstructing 7 mm right renal stone noted. Plan Will discontinue sodium bicarbonate gtt with CO2 at 33.4 Continue lasix every 8 hours Hypokalemia with replacement given Maintain Strict I+O Monitor UOP and BMP Avoid nephrotoxins when possible Creatinine continues to increase at 5.14 today however UOP has increased. Will continue to monitor since UOP has improved. No urgent need for HD. (2) Bacteremia ICD Codes: R78.81 - Bacteremia Plan: continue antibiotics renal dosing. (3) Hypertension, essential ICD Codes: I10 - Hypertension, essential Status: Acute Plan: Well controlled. (4) CVA (cerebral vascular accident) ICD Codes: I63.9 - Cerebral infarction, unspecified Plan: Neurology consulted and managing. (Charissa Jones) Problem List: (1) SEVERINO (acute kidney injury) ICD Codes: N17.9 - Acute kidney failure, unspecified Plan: Acute kidney injury with a creatinine of 2.76 up from 1.67 yesterday. On admission creatinine was less than 1. SEVERINO possible ATN with a FeNA of 18. Possible related to [place] or infection. 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 of abdomen: Nonobstructing 7 mm right renal stone noted. Plan Will discontinue sodium bicarbonate gtt with CO2 at 33.4 Continue lasix every 8 hours Hypokalemia with replacement given Maintain Strict I+O Monitor UOP and BMP Avoid nephrotoxins when possible Creatinine continues to increase at 5.14 today however UOP has increased. Will continue to monitor since UOP has improved. No urgent need for HD. Patient seen and examined, agree with above. HD if no improvement, D/W the daughter. (2) Bacteremia ICD Codes: R78.81 - Bacteremia Plan: continue antibiotics renal dosing. (3) Hypertension, essential ICD Codes: I10 - Hypertension, essential Status: Acute Plan: Well controlled. (4) CVA (cerebral vascular accident) ICD Codes: I63.9 - Cerebral infarction, unspecified Plan: Neurology consulted and managing. (Kingston Kirby MD) Charissa Jones Oct 04, 2017 09:51 Kingston Kirby MD Oct 04, 2017 17:58
[2017-10-04] MEDS: SODIUM CHLOR 0.9% 1000 ML INJ 1,000 ML IV SCH ×3 (10:15→21:18)
--- NOTE | 2017-10-04 11:43 | HHI.IDPN ---
Subjective Subjective Remarks just started to make urine today low grade temps \WBC up to 18.7 seems to move spontaneously R side + heavy diarrhea, C.diff negative Antibiotics CFTX 2 g q 12 Allergies: Coded Allergies: No Known Allergies (Verified Allergy, Unknown, 09/29/17) Objective . Vital Signs Date Time Temp Pulse Resp B/P (MAP) Pulse Ox O2 Delivery O2 Flow Rate FiO2 10/04/17 07:53 99 40 10/04/17 07:00 100 40 10/04/17 06:00 105 10/04/17 04:19 100 40 10/04/17 04:00 94 10/04/17 04:00 40 10/04/17 04:00 99.8 93 24 154/70 (98) 100 10/04/17 02:00 96 10/04/17 00:00 99.4 89 22 136/64 (88) 99 10/04/17 00:00 89 10/04/17 00:00 40 10/03/17 23:54 96 40 10/03/17 22:00 87 10/03/17 20:37 100 40 10/03/17 20:00 85 10/03/17 20:00 40 10/03/17 20:00 99.0 94 23 142/65 (90) 100 10/03/17 19:00 100 Mechanical Ventilator 40 10/03/17 18:00 85 10/03/17 16:46 100 40 10/03/17 16:00 40 10/03/17 16:00 99.0 82 22 114/60 (78) 100 10/03/17 16:00 78 10/03/17 15:15 85 10/03/17 12:15 100 40 10/03/17 12:00 78 10/03/17 12:00 40 10/03/17 12:00 99.0 82 22 114/60 (78) 100 . Laboratory Tests Test 10/03/17 14:35 10/04/17 06:00 White Blood Count 14.8 TH/MM3 18.7 TH/MM3 Red Blood Count 3.16 MIL/MM3 3.28 MIL/MM3 Hemoglobin 8.4 GM/DL 8.5 GM/DL Hematocrit 24.8 % 25.7 % Mean Corpuscular Volume 78.6 FL 78.2 FL Mean Corpuscular Hemoglobin 26.5 PG 25.9 PG Mean Corpuscular Hemoglobin Concent 33.7 % 33.1 % Red Cell Distribution Width 16.2 % 16.3 % Platelet Count 235 TH/MM3 261 TH/MM3 Mean Platelet Volume 9.0 FL 9.2 FL Neutrophils (%) (Auto) 79.8 % 81.2 % Lymphocytes (%) (Auto) 11.1 % 10.7 % Monocytes (%) (Auto) 7.3 % 6.5 % Eosinophils (%) (Auto) 1.3 % 1.2 % Basophils (%) (Auto) 0.5 % 0.4 % Neutrophils # (Auto) 11.8 TH/MM3 15.2 TH/MM3 Lymphocytes # (Auto) 1.6 TH/MM3 2.0 TH/MM3 Monocytes # (Auto) 1.1 TH/MM3 1.2 TH/MM3 Eosinophils # (Auto) 0.2 TH/MM3 0.2 TH/MM3 Basophils # (Auto) 0.1 TH/MM3 0.1 TH/MM3 CBC Comment DIFF FINAL DIFF FINAL Differential Comment Laboratory Tests Test 10/03/17 05:30 10/03/17 14:35 10/04/17 06:00 Blood Urea Nitrogen 64 MG/DL 78 MG/DL Creatinine 4.52 MG/DL 5.14 MG/DL Random Glucose 124 MG/DL 117 MG/DL Calcium Level 7.8 MG/DL 8.0 MG/DL Phosphorus Level 3.1 MG/DL 4.0 MG/DL Sodium Level 140 MEQ/L 139 MEQ/L Potassium Level 2.8 MEQ/L 3.0 MEQ/L 2.9 MEQ/L Chloride Level 99 MEQ/L 92 MEQ/L Carbon Dioxide Level 30.9 MEQ/L 33.4 MEQ/L Anion Gap 10 MEQ/L 14 MEQ/L Estimat Glomerular Filtration Rate 12 ML/MIN 10 ML/MIN Total Protein 6.5 GM/DL Albumin 1.1 GM/DL Magnesium Level 2.4 MG/DL Alkaline Phosphatase 120 U/L Aspartate Amino Transf (AST/SGOT) 29 U/L Alanine Aminotransferase (ALT/SGPT) 20 U/L Total Bilirubin 0.3 MG/DL Microbiology Date/Time Source Procedure Growth Status 10/02/17 04:40 Urine Catheterized Urine Urine Culture - Final NO GROWTH IN 24 HOURS. Complete Imaging [place] Last Impressions Chest X-Ray 10/02/17 0000 Signed Impressions: Service Date/Time: Monday, October 02, 2017 11:03 - CONCLUSION: 1. Mild basilar airspace disease. Endotracheal tube, nasogastric tube and right central line in good position. No pneumothorax. Vlad Perez MD Brain MRI 10/01/17 0000 Signed Impressions: Service Date/Time: Sunday, October 01, 2017 16:08 - CONCLUSION: Widespread punctate subacute infarctions involving multiple vasculature territories bilaterally. Jordy Levin MD Head CT 09/29/17 0000 Signed Impressions: Service Date/Time: Friday, September 29, 2017 21:16 - CONCLUSION: Probable ischemic changes in as described above. MRI would be of benefit. Jon Plata MD FACR Abdomen/Pelvis CT 09/29/17 0000 Signed Impressions: Service Date/Time: Friday, September 29, 2017 21:19 - CONCLUSION: Do not see the etiology of fever with altered mental status.. Diverticuli sigmoid colon without diverticulitis. No gallstones Jon Plata MD FACR Physical Exam CONSTITUTIONAL/GENERAL: This is an obese elderly patient, in no apparent distress. on vent TUBES/LINES/DRAINS: SKIN: No jaundice, rashes, or lesions. Skin temperature appropriate. Not diaphoretic. HEAD: Atraumatic. Normocephalic. EYES: Pupils equal and round and reactive. Extraocular motions intact. No scleral icterus. No injection or drainage. Fundi not examined. CARDIOVASCULAR: Regular rate and rhythm without murmurs, gallops, or rubs. No JVD. Peripheral pulses symmetric. RESPIRATORY/CHEST: Symmetric, unlabored respirations. Clear to auscultation. Breath sounds equal bilaterally. No wheezes, rales, or rhonchi. GASTROINTESTINAL: Abdomen soft, non-tender, nondistended. No hepato-splenomegaly , or palpable masses. No guarding. Bowel sounds present. Incontinent of liquid brown stool GENITOURINARY: Without palpable bladder distension. Koo catheter in place with small amount of yellow urine MUSCULOSKELETAL: Extremities without clubbing, cyanosis, + mild edema edema. NEUROLOGICAL: sedated Not following PSYCHIATRIC: unable to assess Assessment & Plan Remarks Bacterial meningtis 2/2 Strep pneumo mendez S Strep pneumo bacteremia Acute VDRF Critically ill, stable Diarrrea, c.diff negative ARF, oliguri cont CFTX 2 gm q 12 dc isolation monitor creatine dw Dr Machado and RN rufino dght @ b/s Jennifer Nelson MD Oct 04, 2017 11:43
[2017-10-04] MEDS: ATORVASTATIN 10 MG TAB PO SCH (20:41)
[2017-10-04] MEDS: DONEPEZIL HCL 5 MG TAB PO SCH (20:41)
[2017-10-04] MEDS: LATANOPROST 0.005% OPHT SOLN 2.5 ML BTL EACH EYE SCH (20:42)
[2017-10-04] MEDS: ACETAMINOPHEN 650 MG/20.3 ML UDC NG PRN (21:19)
[2017-10-05] VITALS (18 sets, daily range): BP systolic 142–160; BP diastolic 65–74; PULSE 69–108; RESP 14–21; TEMP 98.6–99.9; O2SAT 95–100
[2017-10-05] MEDS: cefTRIAXone INJ 2,000 MG in SODIUM CHLORIDE 0.9% INJ 100 ML IV SCH ×2 (01:10→13:32)
[2017-10-05 04:24] LABS: ALBUMIN 1.2 GM/DL (3.4-5.0); BICARBONATE 33.1 MEQ/L (21.0-32.0); CALCIUM 8.3 MG/DL (8.5-10.1); CREATININE 5.75 MG/DL (0.50-1.00); PHOSPHORUS 5.2 MG/DL (2.5-4.9)
[2017-10-05 04:36] LABS: AUTOMATED NEUTROPHIL # 16.3 TH/MM3 (1.8-7.7); BASOPHIL # 0.1 TH/MM3 (0-0.2); BASOPHIL % 0.4 % (0.0-2.0); EOSINOPHIL # 0.3 TH/MM3 (0-0.4); EOSINOPHIL % 1.6 % (0.0-4.0); HEMATOCRIT 24.8 % (35.0-46.0); HEMOGLOBIN 8.1 GM/DL (11.6-15.3); LYMPH % 8.9 % (9.0-44.0); LYMPHOCYTE # 1.7 TH/MM3 (1.0-4.8); MEAN CELL VOLUME 78.9 FL (80.0-100.0); MEAN CORPUSCULAR HEMOGLOBIN 25.8 PG (27.0-34.0); MEAN CORPUSCULAR HGB CONC 32.7 % (32.0-36.0); MEAN PLATELET VOLUME 9.2 FL (7.0-11.0); MONO % 4.9 % (0.0-8.0); MONOCYTE # 0.9 TH/MM3 (0-0.9); NEUT % 84.2 % (16.0-70.0); PLATELET COUNT 294 TH/MM3 (150-450); RED BLOOD COUNT 3.14 MIL/MM3 (4.00-5.30); RED CELL DISTRIBUTION WIDTH 16.5 % (11.6-17.2); WHITE BLOOD COUNT 19.3 TH/MM3 (4.0-11.0)
--- NOTE | 2017-10-05 05:18 | RADRPT ---
EXAM DATE/TIME: 10/05/2017 03:33 [facility] COMPARISON: CHEST SINGLE AP, October 02, 2017, 11:03. INDICATIONS : Respiratory failure. MEDICAL HISTORY : Hypertension. Bacterial meningitis. SURGICAL HISTORY : Appendectomy. Hysterectomy. Bilateral knee sx. ENCOUNTER: Subsequent ACUITY: 4 - 6 days PAIN SCORE: Non-responsive. LOCATION: Bilateral chest FINDINGS: Bilateral pulmonary consolidation present, fairly diffuse on the right and basilar predominant on the left. A newly small left pleural effusion is suspected. I don't see a pneumothorax. Heart size stable, upper limits of normal. Endotracheal tube tip is approximately 3 cm above the angle. There is a nasogastric tube coursing in to the stomach. Right subclavian central venous catheter with tip in the superior vena cava again not ed. CONCLUSION: Mild bilateral airspace opacities developing. Jordy Eastman MD on October 05, 2017 at 5:16 Board Certified Radiologist. This report was verified electronically.
[2017-10-05] MEDS: INSULIN ASPART SUPPLEMENTAL SCALE SQ SCH ×4 (05:27→23:53)
[2017-10-05] MEDS: FUROSEMIDE 40 MG/4 ML VIAL IV PUSH SCH ×3 (05:27→21:45)
[2017-10-05] MEDS: ARTIFICIAL TEARS OPTH SOLN 15 ML BTL EACH EYE SCH ×3 (05:28→21:45)
[2017-10-05] MEDS: SODIUM CHLOR 0.9% 1000 ML INJ 1,000 ML IV SCH ×2 (06:16→17:23)
[2017-10-05] MEDS: CHLORHEXIDINE 0.12% (ORAL KIT) 15 ML CUP MT SCH ×2 (08:00→21:43)
[2017-10-05] MEDS: SODIUM CHLORIDE 0.9% FLUSH 10 ML FLUSH IV FLUSH SCH ×2 (08:24→21:44)
[2017-10-05] MEDS: DOCUSATE SODIUM 50 MG/SENNA 8.6 MG TAB PO SCH ×2 (08:28→21:00)
[2017-10-05] MEDS: ASPIRIN 81 MG CHEW TAB PO SCH (08:28)
[2017-10-05] MEDS: LANSOPRAZOLE SOLUTAB 30 MG TAB NG SCH (08:28)
[2017-10-05] MEDS: HEPARIN SODIUM - SQ 10,000 UNITS/ML VIAL SQ SCH ×2 (08:28→21:44)
[2017-10-05 09:43] LABS: PROTHROMBIN TIME - PATIENT 10.1 SEC (9.8-11.6)
[2017-10-05] MEDS ORDERED: ATENOLOL 25 MG TAB PO ONE (11:00)
[2017-10-05] MEDS ORDERED: LABETALOL HCL 100 MG/20 ML VIAL IV PUSH PRN (11:00)
[2017-10-05] MEDS ORDERED: cloNIDine HCL 0.1 MG TAB NG PRN (11:00)
[2017-10-05] MEDS ORDERED: PILL SPLITTER OTHER PRN (11:15)
--- NOTE | 2017-10-05 11:19 | HHI.NPPN ---
Subjective General Problems: Anemia Renal Failure: Acute History of Present Illness Patient is a 72-year-old female with a PMH of Anxiety, Depression, Dementia and HTN who is brought to the ER by [facility] [employer] secondary to AMS and fever of 102. Patient unable to provide any history at this time, history obtained from records and and daughter. UA positive for UTI. CXR possible mild failure without consolidation. CT Abdomen/Pelvis no acute findings. CT Head probable ischemic changes anterior limb internal capsule on the left. Patient is intubated FiO2 at 40 %. BC with streptococcus pneumoniae. Patient has received vancomycin and Rocephin. Nephrology is consulted for acute change in renal function with a creatinine of 2.76 with a drop in UOP at 300 ml over 24 hours. Patient is also noted to have a CO2 level of 16.8 this morning and is on a sodium bicarbonate gtt. 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 Patient admission creatinine was 0.83. Additional Remarks Remains on ventilator. DTR at bedside. Generalized edema. Condition unchanged. (Charissa Jones) Review of Systems General General Remarks Unable to ROS patient is intubated (Charissa Jones) Objective Data Data Vital Signs Date Time Temp Pulse Resp B/P (MAP) Pulse Ox O2 Delivery O2 Flow Rate FiO2 10/05/17 07:39 98 40 10/05/17 07:39 40 10/05/17 06:00 101 10/05/17 04:00 40 10/05/17 04:00 101 10/05/17 04:00 98.9 101 17 160/74 (102) 99 10/05/17 03:17 99 40 10/05/17 02:00 92 10/05/17 00:29 100 40 10/05/17 00:00 98.6 90 21 142/65 (90) 100 10/05/17 00:00 40 10/05/17 00:00 98.6 10/05/17 00:00 90 10/04/17 22:00 92 10/04/17 20:00 40 10/04/17 20:00 99.9 96 20 152/65 (94) 99 10/04/17 20:00 100.1 10/04/17 20:00 98 10/04/17 19:14 100 40 10/04/17 19:00 99 Mechanical Ventilator 40 10/04/17 18:00 95 10/04/17 16:42 100 40 10/04/17 16:00 99.3 99 24 122/59 (80) 100 10/04/17 16:00 98 10/04/17 16:00 40 10/04/17 14:00 101 10/04/17 13:16 100 40 10/04/17 12:00 40 10/04/17 12:00 103 10/04/17 12:00 99.0 101 24 119/58 (78) 98 (Charissa Jones) -: 10/05/17 0345 10/05/17 0345 Imaging Last Impressions Chest X-Ray 10/05/17 0600 Signed Impressions: Service Date/Time: Thursday, October 05, 2017 03:33 - CONCLUSION: Mild bilateral airspace opacities developing. Jordy Eastman MD Brain MRI 10/01/17 0000 Signed Impressions: Service Date/Time: Sunday, October 01, 2017 16:08 - CONCLUSION: Widespread punctate subacute infarctions involving multiple vasculature territories bilaterally. Joryd Levin MD Head CT 09/29/17 0000 Signed Impressions: Service Date/Time: Friday, September 29, 2017 21:16 - CONCLUSION: Probable ischemic changes in as described above. MRI would be of benefit. Jon Plata MD FACR Abdomen/Pelvis CT 09/29/17 0000 Signed Impressions: Service Date/Time: Friday, September 29, 2017 21:19 - CONCLUSION: Do not see the etiology of fever with altered mental status.. Diverticuli sigmoid colon without diverticulitis. No gallstones Jon Plata MD FACR Tubes & Lines: Villanueva (Charissa Jones) Physical Exam General Appearance: No Acute Distress Appearance Remarks intubated (Charissa Jones) Pulmonary Resp Exam: Breath Sounds Equal, No Distress, Diminished Breath Sounds (Charissa Jones) Cardiology CV Exam: Regular (Charissa Jones) Gastrointestinal/Abdomen GI Exam: Soft, Non-Tender, Distended (Charissa Jones) Genitourinary Exam: Flank Non-Tender Remarks indwelling villanueva catheter (Charissa Jones) Integumentary Skin Exam: Clear, Warm (Charissa Jones) Extremeties Extremities Exam: Moderate Edema (Charissa Jones) Neurologic Neuro Exam: Sedated (Charissa Jones) Assessment/Plan Discussed Condition With: Patient, Daughter Assessment Summary: SEVERINO/Acute Renal Failure Electrolyte Assessment: Hypokalemia Problem List: (1) SEVERINO (acute kidney injury) ICD Codes: N17.9 - Acute kidney failure, unspecified Plan: Acute kidney injury with a creatinine of 2.76 up from 1.67 yesterday. On admission creatinine was less than 1. SEVERINO possible ATN with a FeNA of 18. Possible related to [place] or infection. UOP improving [address] of abdomen: Nonobstructing 7 mm right renal stone noted. Plan Continue IVF Continue lasix every 8 hours Hypokalemia with replacement given Maintain Strict I+O Monitor UOP and BMP Avoid nephrotoxins when possible Creatinine continues to increase at 5.75 from 5.14 today however UOP continues to improve Will continue to monitor since UOP has improved. No urgent need for HD. Discussed with DTR (2) Bacteremia ICD Codes: R78.81 - Bacteremia Plan: continue antibiotics renal dosing. (3) Hypertension, essential ICD Codes: I10 - Hypertension, essential Status: Acute Plan: Well controlled. (4) CVA (cerebral vascular accident) ICD Codes: I63.9 - Cerebral infarction, unspecified Plan: Neurology consulted and managing. (Charissa Jones) Problem List: (1) SEVERINO (acute kidney injury) ICD Codes: N17.9 - Acute kidney failure, unspecified Plan: Acute kidney injury with a creatinine of 2.76 up from 1.67 yesterday. On admission creatinine was less than 1. SEVERINO possible ATN with a FeNA of 18. Possible related to [place] or infection. UOP improving [address] of abdomen: Nonobstructing 7 mm right renal stone noted. Plan Continue IVF Continue lasix every 8 hours Hypokalemia with replacement given Maintain Strict I+O Monitor UOP and BMP Avoid nephrotoxins when possible Creatinine continues to increase at 5.75 from 5.14 today however UOP continues to improve Will continue to monitor since UOP has improved. No urgent need for HD. Discussed with DTR. Patient seen and examined, agree with above. Creatinine still increasing, Urine out put increasing. No acute indication of Dialysis. (2) Bacteremia ICD Codes: R78.81 - Bacteremia Plan: continue antibiotics renal dosing. (3) Hypertension, essential ICD Codes: I10 - Hypertension, essential Status: Acute Plan: Well controlled. (4) CVA (cerebral vascular accident) ICD Codes: I63.9 - Cerebral infarction, unspecified Plan: Neurology consulted and managing. (Kingston Kirby MD) Charissa Jones Oct 05, 2017 11:19 Kingston Kirby MD Oct 05, 2017 18:24
[2017-10-05 14:32] LABS: ANA PATTERN SPECKLED
--- NOTE | 2017-10-05 14:40 | HHI.CCPN ---
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 On arrival, BP 134/64, HR 104, O2 sat 97% on RA, Temp 100.8. WBC 18.4. BUN 21. GFR 82. Lactic Acid normal. UA positive for UTI. CXR possible mild failure without consolidation. CT Abdomen/Pelvis no acute findings. CT Head probable ischemic changes anterior limb internal capsule on the left. S/p Blood Cultures positive for gram + cocci 10/10 bottles, Rocephin now, add Vancomycin. 09/30: Continued high grade fever, increasing leukocytosis. Brought to [facility] for labored tachypnea. She is clenching her jaw and possibly seizing. Will intubate and ventilate for airway protection, proceed directly to lumbar puncture, broaden abx coverage. 10/01: Patient intubated and placed on mechanical ventilation yesterday. Underwent lumbar puncture which showed cloudy CSF with CSF studies consistent with bacterial meningitis. Blood cultures with strep pneumo. Patient has already been evaluated by BERNARD Nelson. Currently remains sedated, orally intubated on mechanical ventilation. 10/02: Remains sedated, orally intubated on mechanical ventilation. Tolerating tube feeds. 10/03: Tolerated CPAP trial 2 hours yesterday. Back on propofol drip for sedation. Minimal urine output overnight. Tolerating tube feeding. 10/04: T-max 99.8. 350 cc urine output past 24 hours. 100 cc stool. Withdraws bilateral upper and lower extremities. Grasp. Positive gag and cough. Positive corneal reflex Subjective 10/05: Afebrile. 8 75 cc urine output past 24 hours. 1600 cc stool. Opens eyes. Spontaneously moving right lower extremity Objective Vital Signs Date Time Temp Pulse Resp B/P (MAP) Pulse Ox O2 Delivery O2 Flow Rate FiO2 10/05/17 12:00 40 10/05/17 12:00 78 20 100 10/05/17 08:00 98.8 10/05/17 07:00 Mechanical Ventilator 10/05/17 04:00 160/74 (102) 10/02/17 19:00 2.00 Intake and Output 10/05/17 10/05/17 10/06/17 08:00 16:00 00:00 Intake Total 2164 ml Output Total 375.0 ml Balance 1789.0 ml Result Diagram: 10/05/17 0345 10/05/17 0345 Other Results Microbiology Date/Time Source Procedure Growth Status 09/29/17 17:55 Blood Peripheral Aerobic Blood Culture - Final Streptococcus Pneumoniae Complete 09/29/17 17:55 Anaerobic Blood Culture - Final Streptococcus Pneumoniae Complete 09/30/17 11:30 Cerebral Spinal Fluid Lumbar Puncture Gram Stain - Final Complete 09/30/17 11:30 Cerebral Spinal Fluid Lumbar Puncture CSF Culture - Final NO GROWTH IN 72 HOURS Complete 09/29/17 18:00 Nasal Aspirate Influenza Types A,B Antigen (CYNTHIA) - Final NEGATIVE FOR FLU A AND B ANTIGEN.... Complete 10/02/17 04:40 Urine Catheterized Urine Urine Culture - Final NO GROWTH IN 24 HOURS. Complete Imaging Last Impressions Chest X-Ray 10/05/17 0600 Signed Impressions: Service Date/Time: Thursday, October 05, 2017 03:33 - CONCLUSION: Mild bilateral airspace opacities developing. Jordy Eastman MD Brain MRI 10/01/17 0000 Signed Impressions: Service Date/Time: Sunday, October 01, 2017 16:08 - CONCLUSION: Widespread punctate subacute infarctions involving multiple vasculature territories bilaterally. Jordy Levin MD Head CT 09/29/17 0000 Signed Impressions: Service Date/Time: Friday, September 29, 2017 21:16 - CONCLUSION: Probable ischemic changes in as described above. MRI would be of benefit. Jon Plata MD FACR Abdomen/Pelvis CT 09/29/17 0000 Signed Impressions: Service Date/Time: Friday, September 29, 2017 21:19 - CONCLUSION: Do not see the etiology of fever with altered mental status.. Diverticuli sigmoid colon without diverticulitis. No gallstones Jon Plata MD FACR Objective Remarks GENERAL: 72 YO AAF currently orotracheally intubated SKIN: Warm and dry. No rash HEAD: Atraumatic. Normocephalic. EYES: Pupils equal and round about 1 mm bilaterally and pinpoint. No scleral icterus. No injection or drainage. ENT: No nasal bleeding or discharge. Mucous membranes pink and moist. NECK: Trachea midline. No JVD. CARDIOVASCULAR: Regular rate and rhythm. S1, S2 no S4. II/ systolic murmur RESPIRATORY: Clear to auscultation. Breath sounds equal bilaterally. GASTROINTESTINAL: Abdomen soft, non-tender, nondistended. Hypoactive bowel sounds are appreciated MUSCULOSKELETAL: Extremities with trace bilateral lower extremity edema. No obvious deformities. NEUROLOGICAL: Sedated on midazolam drip. Positive gag and cough. Positive corneal reflex. Downward toes bilaterally. Subjectively left side weaker than right Urinary Catheter: Yes Assessment to: Continue Koo insert reason: Prolonged Immobilization Vascular Central Line Catheter: No Assessment to: Continue Date of Insertion: Oct 02, 2017 Line: Central Venous Catheter Side: Right Location: Subclavian A/P Assessment and Plan Neuro/Psych: Acute bilateral CVA Bacterial meningitis Dementia Depression/anxiety Elevated intraocular pressures Currently on currently off all sedation Acetaminophen 650 mg by tube every 6 hours. Fever Latanoprost 0.005% 1 drop each eye at night CT brain on admission revealed ischemic change anterior limb of internal capsule left side. MRI brain 10/01 revealed widespread bilateral subacute infarction largest in the left parietal occipital region. 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 Continue donepezil 10 mg p.o. daily Cardiovascular: History of hypertension Moderate MR Holding amlodipine 10 mg daily/home medication for hypertension. Resume clinically indicated 2D echocardiogram revealed EF 75%. LVH. Moderate MR. Mild TR/MI On atorvastatin 10 mg daily for dyslipidemia Pulmonary: Acute respiratory failure PRVC 16/500/1.2/5/40 Ventilator bundle Albuterol/ipratropium aerosols every 6 hours with albuterol aerosols every 2 hours as needed for dyspnea PSV trials daily GI/liver: Hypoalbuminemia Descending colon Diverticulosis Currently Nepro goal 45 cc now. Nutrition recommended vital high-protein 65 cc an hour. Adjust secondary to acute kidney injury Lansoprazole 30 mg by tube daily for GI prophylaxis Docusate sodium/senna 1 tablet twice daily for bowel regimen 5 bowel movements documented 10/01. [address] abdomen/pelvis revealed descending colon diverticulosis. No diverticulitis. Renal/: Acute kidney injury No hydronephrosis Urine eosinophils negative. Intrinsic renal by urine electrolytes Followed by nephrology. Currently on furosemide 40 mg IV every 8 hours with 0.9 % NaCl at 100 cc now.. A.m. laboratories currently pending ID: Strep pneumonia bacteremia/meningitis Continue antibiotic coverage per Dr. Nelson from ID. Currently on IV ceftriaxone 2 g IV every 12 hours per ID, Vancomycin stopped 10/02. 09/29 blood cultures growing strep pneumo 4 out of 4 bottles. 09/30 -CSF -no growth HSV PCR negative Endocrine: Sliding scale insulin Accu-Cheks every 6 hours to maintain euglycemia with Novulog low regimen Heme: Leukocytosis Microcytic anemia Follow CBC. Follow trends FEN: Hypokalemia 20 meq KCl IV 1 now. Recheck this afternoon MSK: Osteoarthritis Holding meloxicam 7.5 mg p.o. daily. PT evaluate and treat Prophylaxis: Lansoprazole 30 mg by tube daily iSCDs. Subcutaneous heparin 5000 units every 12 hours Lines: Right subclavian central line placed 10/02. Explained current clinical status with patient's daughter at bedside in detail including plan of care and she voiced understanding and was agreeable. Level 3 follow-up Bobby Machado MD Oct 05, 2017 14:40
[2017-10-05] MEDS: ATORVASTATIN 10 MG TAB PO SCH (21:44)
[2017-10-05] MEDS: LATANOPROST 0.005% OPHT SOLN 2.5 ML BTL EACH EYE SCH (21:44)
[2017-10-05] MEDS: DONEPEZIL HCL 5 MG TAB PO SCH (21:44)
[2017-10-06] VITALS (18 sets, daily range): BP systolic 123–151; BP diastolic 57–66; PULSE 77–85; RESP 16–20; TEMP 98.1–99.3; O2SAT 90–97
[2017-10-06] MEDS: cefTRIAXone INJ 2,000 MG in SODIUM CHLORIDE 0.9% INJ 100 ML IV SCH ×2 (00:16→13:00)
[2017-10-06 04:25] LABS: BASOPHIL # 0.1 TH/MM3 (0-0.2); BASOPHIL % 0.4 % (0.0-2.0); EOSINOPHIL # 0.5 TH/MM3 (0-0.4); EOSINOPHIL % 2.9 % (0.0-4.0); HEMATOCRIT 21.3 % (35.0-46.0); HEMOGLOBIN 7.1 GM/DL (11.6-15.3); LYMPHOCYTE # 1.4 TH/MM3 (1.0-4.8); MEAN CELL VOLUME 79.7 FL (80.0-100.0); MEAN CORPUSCULAR HEMOGLOBIN 26.6 PG (27.0-34.0); MEAN CORPUSCULAR HGB CONC 33.3 % (32.0-36.0); MEAN PLATELET VOLUME 8.9 FL (7.0-11.0); MONO % 5.5 % (0.0-8.0); NEUT % 83.2 % (16.0-70.0); PLATELET COUNT 332 TH/MM3 (150-450); RED BLOOD COUNT 2.67 MIL/MM3 (4.00-5.30); RED CELL DISTRIBUTION WIDTH 16.5 % (11.6-17.2)
[2017-10-06 04:50] LABS: ALBUMIN 1.2 GM/DL (3.4-5.0); BICARBONATE 28.9 MEQ/L (21.0-32.0); CALCIUM 8.3 MG/DL (8.5-10.1); CREATININE 6.1 MG/DL (0.50-1.00); PHOSPHORUS 5.9 MG/DL (2.5-4.9)
[2017-10-06] MEDS: SODIUM CHLOR 0.9% 1000 ML INJ 1,000 ML IV SCH ×2 (04:51→12:15)
[2017-10-06] MEDS: INSULIN ASPART SUPPLEMENTAL SCALE SQ SCH ×3 (06:00→18:00)
[2017-10-06] MEDS: ARTIFICIAL TEARS OPTH SOLN 15 ML BTL EACH EYE SCH ×2 (06:38→14:00)
[2017-10-06] MEDS: FUROSEMIDE 40 MG/4 ML VIAL IV PUSH SCH ×2 (06:39→18:00)
[2017-10-06] MEDS: CHLORHEXIDINE 0.12% (ORAL KIT) 15 ML CUP MT SCH ×2 (08:00→20:55)
[2017-10-06] MEDS: SODIUM CHLORIDE 0.9% FLUSH 10 ML FLUSH IV FLUSH SCH ×2 (08:59→20:55)
[2017-10-06] MEDS: LANSOPRAZOLE SOLUTAB 30 MG TAB NG SCH (09:04)
[2017-10-06] MEDS: ASPIRIN 81 MG CHEW TAB PO SCH (09:04)
[2017-10-06] MEDS: DOCUSATE SODIUM 50 MG/SENNA 8.6 MG TAB PO SCH ×2 (09:05→20:55)
[2017-10-06] MEDS: HEPARIN SODIUM - SQ 10,000 UNITS/ML VIAL SQ SCH (09:05)
[2017-10-06] MEDS: ATENOLOL 25 MG TAB PO SCH (09:11)
--- NOTE | 2017-10-06 10:19 | HHI.CCPN ---
Subjective Remarks/Hospital Course 09/29: This is a 72-year-old female with a PMH of Anxiety, Depression, Dementia and HTN who is brought to the ER by Grizzly Worker secondary to AMS and fever of 102. Patient unable to provide any history at this time, history obtained from records and report of nutritional services host. On arrival, BP 134/64, HR 104, O2 sat 97% on RA, Temp 100.8. WBC 18.4. BUN 21. GFR 82. Lactic Acid normal. UA positive for UTI. CXR possible mild failure without consolidation. CT Abdomen/Pelvis no acute findings. CT Head probable ischemic changes anterior limb internal capsule on the left. S/p Blood Cultures positive for gram + cocci 10/10 bottles, Rocephin now, add Vancomycin. 09/30: Continued high grade fever, increasing leukocytosis. Brought to [facility] for labored tachypnea. She is clenching her jaw and possibly seizing. Will intubate and ventilate for airway protection, proceed directly to lumbar puncture, broaden abx coverage. 10/01: Patient intubated and placed on mechanical ventilation yesterday. Underwent lumbar puncture which showed cloudy CSF with CSF studies consistent with bacterial meningitis. Blood cultures with strep pneumo. Patient has already been evaluated by BERNARD Nelson. Currently remains sedated, orally intubated on mechanical ventilation. 10/02: Remains sedated, orally intubated on mechanical ventilation. Tolerating tube feeds. 10/03: Tolerated CPAP trial 2 hours yesterday. Back on propofol drip for sedation. Minimal urine output overnight. Tolerating tube feeding. 10/04: T-max 99.8. 350 cc urine output past 24 hours. 100 cc stool. Withdraws bilateral upper and lower extremities. Grasp. Positive gag and cough. Positive corneal reflex 10/05: Afebrile. 8 75 cc urine output past 24 hours. 1600 cc stool. Opens eyes. Spontaneously moving right lower extremity Subjective 10/06: Afebrile. 1300 cc urine overnight. 700 cc stools. Opens eyes. Spontaneously moves right upper and lower extremity. Withdraws to left upper lower extremity. Yawns. Objective Vital Signs Date Time Temp Pulse Resp B/P (MAP) Pulse Ox O2 Delivery O2 Flow Rate FiO2 10/06/17 08:07 92 40 10/06/17 06:00 82 10/06/17 04:00 98.9 17 151/66 (94) 10/06/17 00:15 Mechanical Ventilator 10/02/17 19:00 2.00 Intake and Output 10/06/17 10/06/17 10/07/17 08:00 16:00 00:00 Intake Total 1642 ml Output Total 925 ml Balance 717 ml Result Diagram: 10/06/17 0403 10/06/17 0403 Other Results Microbiology Date/Time Source Procedure Growth Status 09/29/17 17:55 Blood Peripheral Aerobic Blood Culture - Final Streptococcus Pneumoniae Complete 09/29/17 17:55 Anaerobic Blood Culture - Final Streptococcus Pneumoniae Complete 09/30/17 11:30 Cerebral Spinal Fluid Lumbar Puncture Gram Stain - Final Complete 09/30/17 11:30 Cerebral Spinal Fluid Lumbar Puncture CSF Culture - Final NO GROWTH IN 72 HOURS Complete 09/29/17 18:00 Nasal Aspirate Influenza Types A,B Antigen (CYNTHIA) - Final NEGATIVE FOR FLU A AND B ANTIGEN.... Complete 10/02/17 04:40 Urine Catheterized Urine Urine Culture - Final NO GROWTH IN 24 HOURS. Complete Imaging Last Impressions Chest X-Ray 10/05/17 0600 Signed Impressions: Service Date/Time: Thursday, October 05, 2017 03:33 - CONCLUSION: Mild bilateral airspace opacities developing. Jordy Eastman MD Brain MRI 10/01/17 0000 Signed Impressions: Service Date/Time: Sunday, October 01, 2017 16:08 - CONCLUSION: Widespread punctate subacute infarctions involving multiple vasculature territories bilaterally. Jordy Levin MD Head CT 09/29/17 0000 Signed Impressions: Service Date/Time: Friday, September 29, 2017 21:16 - CONCLUSION: Probable ischemic changes in as described above. MRI would be of benefit. Jon Plata MD FACR Abdomen/Pelvis CT 09/29/17 0000 Signed Impressions: Service Date/Time: Friday, September 29, 2017 21:19 - CONCLUSION: Do not see the etiology of fever with altered mental status.. Diverticuli sigmoid colon without diverticulitis. No gallstones Jon Plata MD FACR Objective Remarks GENERAL: 72 YO AAF currently orotracheally intubated SKIN: Warm and dry. No rash HEAD: Atraumatic. Normocephalic. EYES: Pupils equal and round about 1 mm bilaterally and pinpoint. No scleral icterus. No injection or drainage. ENT: No nasal bleeding or discharge. Mucous membranes pink and moist. NECK: Trachea midline. No JVD. CARDIOVASCULAR: Regular rate and rhythm. S1, S2 no S4. II/ systolic murmur RESPIRATORY: Clear to auscultation. Breath sounds equal bilaterally. GASTROINTESTINAL: Abdomen soft, non-tender, nondistended. Hypoactive bowel sounds are appreciated MUSCULOSKELETAL: Extremities with trace bilateral lower extremity edema. No obvious deformities. NEUROLOGICAL: Spontaneously moves right and upper lower extremity. Opens eyes to voice. Withdraws to left upper and lower extremity. Urinary Catheter: Yes Assessment to: Continue Koo insert reason: ICU Pt Getting Diuretics Vascular Central Line Catheter: Yes Assessment to: Continue Date of Insertion: Oct 02, 2017 Line: Central Venous Catheter Side: Right Location: Subclavian A/P Assessment and Plan Neuro/Psych: Acute bilateral CVA Bacterial meningitis Dementia Depression/anxiety Elevated intraocular pressures Currently on currently off all sedation Acetaminophen 650 mg by tube every 6 hours. Fever Latanoprost 0.005% 1 drop each eye at night CT brain on admission revealed ischemic change anterior limb of internal capsule left side. MRI brain 10/01 revealed widespread bilateral subacute infarction largest in the left parietal occipital region. 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 Continue donepezil 10 mg p.o. daily Cardiovascular: History of hypertension Moderate MR Holding amlodipine 10 mg daily/home medication for hypertension. Resume clinically indicated 2D echocardiogram revealed EF 75%. LVH. Moderate MR. Mild TR/KY On atorvastatin 10 mg daily for dyslipidemia Pulmonary: Acute respiratory failure [facility] 16500/1.2/40 Ventilator bundle Albuterol/ipratropium aerosols every 6 hours with albuterol aerosols every 2 hours as needed for dyspnea PSV trials daily GI/liver: Hypoalbuminemia Descending colon Diverticulosis Currently Nepro goal 45 cc now. Nutrition recommended vital high-protein 65 cc an hour. Adjust secondary to acute kidney injury Lansoprazole 30 mg by tube daily for GI prophylaxis Docusate sodium/senna 1 tablet twice daily for bowel regimen Positive view overnight CT abdomen/pelvis revealed descending colon diverticulosis. No diverticulitis. Renal/: Acute kidney injury No hydronephrosis Urine eosinophils negative. Intrinsic renal by urine electrolytes Followed by nephrology. Currently on furosemide 40 mg IV every 8 hours with 0.9 % NaCl at 100 cc now.. ID: Strep pneumonia bacteremia/meningitis Continue antibiotic coverage per Dr. Nelson from ID. Currently on IV ceftriaxone 2 g IV every 12 hours per ID, Vancomycin stopped 10/02. 09/29 blood cultures growing strep pneumo 4 out of 4 bottles. 09/30 -CSF -no growth HSV PCR negative Endocrine: Sliding scale insulin Accu-Cheks every 6 hours to maintain euglycemia with Novulog low regimen Heme: Leukocytosis Microcytic anemia Follow CBC. Follow trends No indication for transfusion of blood products at this time FEN: Hypokalemia Hyperphosphatemia 20 meq KCl IV 1 now. Recheck this afternoon MSK: Osteoarthritis Elevated BMI Positive KAREL -1: 40/speckled Holding meloxicam 7.5 mg p.o. daily. PT evaluate and treat Confirmatory KAREL test ordered. Noted that 20% of all women have weakly positive KAREL's that do not convert to lupus/ Prophylaxis: Lansoprazole 30 mg by tube daily iSCDs. Subcutaneous heparin 5000 units every 12 hours Lines: Right subclavian central line placed 10/02. Explained current clinical status with patient's daughter at bedside in detail including plan of care and she voiced understanding and was agreeable. Level 3 follow-up Bobby Machado MD Oct 06, 2017 10:19
--- NOTE | 2017-10-06 12:10 | HHI.NPPN ---
Subjective General Problems: Anemia Renal Failure: Acute History of Present Illness Patient is a 72-year-old female with a PMH of Anxiety, Depression, Dementia and HTN who is brought to the ER by Wet End Tester secondary to AMS and fever of 102. Patient unable to provide any history at this time, history obtained from records and and daughter. UA positive for UTI. CXR possible mild failure without consolidation. CT Abdomen/Pelvis no acute findings. CT Head probable ischemic changes anterior limb internal capsule on the left. Patient is intubated FiO2 at 40 %. BC with streptococcus pneumoniae. Patient has received vancomycin and Rocephin. Nephrology is consulted for acute change in renal function with a creatinine of 2.76 with a drop in UOP at 300 ml over 24 hours. Patient is also noted to have a CO2 level of 16.8 this morning and is on a sodium bicarbonate gtt. Per the daughter patient has not history of kidney disease and has not been followed by a display maker in the past. Patient admission creatinine was 0.83. Additional Remarks Patient remain on the vent., on 40% Fio2, and sedated. Review of Systems General General Remarks Unable to ROS patient is intubated Objective Data Data 10/06/17 10/07/17 19:00 07:00 Output Total 0 ml Balance 0 ml Tube Feeding Residual Discard 0 ml Vital Signs Date Time Temp Pulse Resp B/P (MAP) Pulse Ox O2 Delivery O2 Flow Rate FiO2 10/06/17 08:07 92 40 10/06/17 08:07 40 10/06/17 07:00 100 Room Air 10/06/17 06:00 82 10/06/17 04:00 98.9 85 17 151/66 (94) 93 10/06/17 04:00 35 10/06/17 04:00 85 10/06/17 03:30 94 40 10/06/17 02:00 84 10/06/17 00:15 92 Mechanical Ventilator 35 10/06/17 00:00 35 10/06/17 00:00 98.8 81 20 137/64 (88) 90 10/06/17 00:00 81 10/05/17 23:40 96 35 10/05/17 22:00 83 10/05/17 20:00 30 10/05/17 20:00 99.7 84 18 150/68 (95) 95 10/05/17 20:00 84 10/05/17 19:00 100 Mechanical Ventilator 30 10/05/17 18:00 90 10/05/17 16:00 40 10/05/17 16:00 99.9 84 16 100 10/05/17 16:00 84 10/05/17 15:45 99 30 10/05/17 14:00 108 -: 10/06/17 0403 10/06/17 0403 Tubes & Lines: Koo Physical Exam General Appearance Remarks Intubated and sedated. Pulmonary Resp Exam: Breath Sounds Equal, No Distress, Diminished Breath Sounds Cardiology CV Exam: Regular Gastrointestinal/Abdomen GI Exam: Soft, Non-Tender, Distended Genitourinary Exam: Flank Non-Tender Integumentary Skin Exam: Clear, Warm Extremeties Extremities Exam: Moderate Edema, Pitting Edema, Dependent Edema Neurologic Neuro Exam: Sedated Assessment/Plan Discussed Condition With: Patient, Daughter Assessment Summary: SEVERINO/Acute Renal Failure Electrolyte Assessment: Hypokalemia Problem List: (1) SEVERINO (acute kidney injury) ICD Codes: N17.9 - Acute kidney failure, unspecified Plan: Acute kidney injury with a creatinine of 2.76 up from 1.67 yesterday. On admission creatinine was less than 1. SEVERINO possible ATN with a FeNA of 18. Possible related to [place] or infection. UOP improving [address] of abdomen: Nonobstructing 7 mm right renal stone noted. Plan Continue IVF Continue lasix every 8 hours Hypokalemia with replacement given Maintain Strict I+O Monitor UOP and BMP Avoid nephrotoxins when possible Creatinine continues to increase along with the BUN. Will continue to monitor since UOP has improved. No urgent need for HD. No acute indication of Dialysis, will decrease Lasix and monitor closely. (2) Bacteremia ICD Codes: R78.81 - Bacteremia Plan: continue antibiotics renal dosing. (3) Hypertension, essential ICD Codes: I10 - Hypertension, essential Status: Acute Plan: Well controlled. (4) CVA (cerebral vascular accident) ICD Codes: I63.9 - Cerebral infarction, unspecified Plan: Neurology consulted and managing. Kingston Kirby MD Oct 06, 2017 12:10
[2017-10-06] MEDS: PANTOPRAZOLE INJ 80 MG in SODIUM CHLORIDE 0.9% INJ 100 ML IV SCH (17:45)
[2017-10-06] MEDS ORDERED: PANTOPRAZOLE INJ 80 MG in SODIUM CHLORIDE 0.9% INJ 35 ML IV ONE (17:45)
[2017-10-06 17:55] LABS: MEAN CELL VOLUME 79.5 FL (80.0-100.0); MEAN CORPUSCULAR HEMOGLOBIN 25.6 PG (27.0-34.0); MEAN CORPUSCULAR HGB CONC 32.2 % (32.0-36.0); MEAN PLATELET VOLUME 8.9 FL (7.0-11.0); PLATELET COUNT 315 TH/MM3 (150-450); RED BLOOD COUNT 2.39 MIL/MM3 (4.00-5.30); RED CELL DISTRIBUTION WIDTH 16.7 % (11.6-17.2); WHITE BLOOD COUNT 17.3 TH/MM3 (4.0-11.0)
[2017-10-06 18:14] LABS: PROTHROMBIN TIME - PATIENT 10.1 SEC (9.8-11.6)
[2017-10-06 18:19] LABS: HEMOGLOBIN 6.1 GM/DL (11.6-15.3)
[2017-10-06] MEDS: ATORVASTATIN 10 MG TAB PO SCH (20:55)
[2017-10-06] MEDS: DONEPEZIL HCL 5 MG TAB PO SCH (20:55)
[2017-10-06] MEDS: LATANOPROST 0.005% OPHT SOLN 2.5 ML BTL EACH EYE SCH (20:55)
[2017-10-07] VITALS (29 sets, daily range): BP systolic 114–139; BP diastolic 58–85; PULSE 68–89; RESP 16–39; TEMP 77–99.4; O2SAT 92–100
[2017-10-07] MEDS: SODIUM CHLOR 0.9% 1000 ML INJ 1,000 ML IV SCH ×3 (01:12→18:15)
[2017-10-07] MEDS: ARTIFICIAL TEARS OPTH SOLN 15 ML BTL EACH EYE SCH ×4 (01:12→22:29)
[2017-10-07] MEDS: PANTOPRAZOLE INJ 80 MG in SODIUM CHLORIDE 0.9% INJ 100 ML IV SCH ×3 (01:17→20:54)
[2017-10-07] MEDS: cefTRIAXone INJ 2,000 MG in SODIUM CHLORIDE 0.9% INJ 100 ML IV SCH ×2 (01:17→13:00)
[2017-10-07] MEDS: INSULIN ASPART SUPPLEMENTAL SCALE SQ SCH ×4 (05:36→18:00)
[2017-10-07 06:39] LABS: MEAN CELL VOLUME 79.1 FL (80.0-100.0); MEAN CORPUSCULAR HEMOGLOBIN 26.1 PG (27.0-34.0); MEAN PLATELET VOLUME 8.8 FL (7.0-11.0); PLATELET COUNT 296 TH/MM3 (150-450); RED BLOOD COUNT 2.61 MIL/MM3 (4.00-5.30); RED CELL DISTRIBUTION WIDTH 15.3 % (11.6-17.2); WHITE BLOOD COUNT 15.9 TH/MM3 (4.0-11.0)
[2017-10-07 06:47] LABS: HEMATOCRIT 20.7 % (35.0-46.0); HEMOGLOBIN 6.8 GM/DL (11.6-15.3)
[2017-10-07 07:04] LABS: BICARBONATE 25.2 MEQ/L (21.0-32.0); CALCIUM 7.8 MG/DL (8.5-10.1); CREATININE 6.54 MG/DL (0.50-1.00); MAGNESIUM 2.4 MG/DL (1.5-2.5); PHOSPHORUS 6.2 MG/DL (2.5-4.9)
[2017-10-07] MEDS: CHLORHEXIDINE 0.12% (ORAL KIT) 15 ML CUP MT SCH ×2 (08:00→20:48)
[2017-10-07] MEDS: ATENOLOL 25 MG TAB PO SCH (08:49)
[2017-10-07] MEDS: SODIUM CHLORIDE 0.9% FLUSH 10 ML FLUSH IV FLUSH SCH ×2 (08:49→20:48)
[2017-10-07] MEDS: DOCUSATE SODIUM 50 MG/SENNA 8.6 MG TAB PO SCH ×2 (08:49→20:49)
--- NOTE | 2017-10-07 09:27 | PD.CONS ---
HPI History of Present Illness This is a 72 year old female with dementia who was brought by her caregiver for AMS and fever. She was found to have UTI, CVA. SHe developed respiratory distress and poss seizure, was intubated. Found to have strep pneumo meningitis. GI has been consulted for bright red blood in NGT. her hgb has trended down from 10.9 on admission to 6.8 today. went from 6.1 to only 6.8 after 2 x PRBC. On my evaluation she does have dark blood in NGT cannister and melanotic stool in collection bag. Per pts daughter she has hx of frequent NSAID use for knee pain. No etoh. No hx liver dz or prior GIB. Pt intubated, hx obtained from EMR and daughter. (Shania Herman) PFSH Past Medical History PMH: Anxiety, Depression, Dementia and HTN Past Surgical History PAST SURGICAL HISTORY: Appendectomy, Hysterectomy, Right knee Replacement (Shania Herman) Coded Allergies: No Known Allergies (Verified Allergy, Unknown, 09/29/17) Family History PAST FAMILY HISTORY: Reviewed. No h/o DM or CAD Social History PAST SOCIAL HISTORY: Negative for alcohol, tobacco or drugs. (Shania Herman) Review of Systems noncontributory (Shania Herman) GI Exam Vitals I&O Vital Signs Date Time Temp Pulse Resp B/P (MAP) Pulse Ox O2 Delivery O2 Flow Rate FiO2 10/07/17 08:20 99.3 76 30 114/64 95 10/07/17 08:04 95 40 10/07/17 08:04 40 10/07/17 06:00 77 10/07/17 04:02 97 40 10/07/17 04:00 79 10/07/17 04:00 40 10/07/17 04:00 99.4 78 26 121/60 (80) 96 10/07/17 03:00 99.4 78 26 116/58 97 10/07/17 02:00 75 10/07/17 00:34 95 40 10/07/17 00:27 99.2 83 24 123/60 100 10/07/17 00:12 99.2 89 26 123/70 95 10/07/17 00:00 76 10/07/17 00:00 40 10/07/17 00:00 99.2 78 22 118/59 (78) 95 10/06/17 22:00 80 10/06/17 21:41 93 40 10/06/17 20:10 99.2 78 16 132/61 95 10/06/17 20:00 99.2 84 16 131/57 (81) 95 10/06/17 20:00 85 10/06/17 20:00 40 10/06/17 19:00 99 Mechanical Ventilator 40 10/06/17 18:00 81 10/06/17 17:28 97 40 10/06/17 16:00 78 10/06/17 16:00 40 10/06/17 16:00 98.7 78 19 123/63 (83) 96 10/06/17 14:00 77 10/06/17 12:00 77 10/06/17 12:00 40 10/06/17 12:00 98.1 77 19 139/63 (88) 95 10/06/17 10:00 78 I/O 10/06/17 10/06/17 10/06/17 10/07/17 10/07/17 10/07/17 07:00 15:00 23:00 07:00 15:00 23:00 Intake Total 1642 ml 724 ml 920 ml Output Total 925 ml 0 ml 1190 ml 1300 ml Balance 717 ml 0 ml -466 ml -380 ml IV Total 1100 ml 135 ml Tube Feeding 442 ml 539 ml 0 ml Packed Cells 900 ml Blood Product IV Normal Saline Flush 10 ml 20 ml Tube Irrigant 100 ml 40 ml Output Urine Total 625 ml 850 ml 1100 ml Stool Total 300 ml 300 ml 200 ml Gastric Drainage Total 40 ml Tube Feeding Residual Discard 0 ml Imaging Last Impressions Chest X-Ray 10/05/17 0600 Signed Impressions: Service Date/Time: Thursday, October 05, 2017 03:33 - CONCLUSION: Mild bilateral airspace opacities developing. Jordy Eastman MD Brain MRI 10/01/17 0000 Signed Impressions: Service Date/Time: Sunday, October 01, 2017 16:08 - CONCLUSION: Widespread punctate subacute infarctions involving multiple vasculature territories bilaterally. Jordy Levin MD Head CT 09/29/17 0000 Signed Impressions: Service Date/Time: Friday, September 29, 2017 21:16 - CONCLUSION: Probable ischemic changes in as described above. MRI would be of benefit. Jon Plata MD FACR Abdomen/Pelvis CT 09/29/17 0000 Signed Impressions: Service Date/Time: Friday, September 29, 2017 21:19 - CONCLUSION: Do not see the etiology of fever with altered mental status.. Diverticuli sigmoid colon without diverticulitis. No gallstones Jon Plata MD FACR Laboratory Test 10/06/17 17:30 10/07/17 06:00 White Blood Count 17.3 TH/MM3 15.9 TH/MM3 Red Blood Count 2.39 MIL/MM3 2.61 MIL/MM3 Hemoglobin 6.1 GM/DL 6.8 GM/DL Hematocrit 19.0 % 20.7 % Mean Corpuscular Volume 79.5 FL 79.1 FL Mean Corpuscular Hemoglobin 25.6 PG 26.1 PG Mean Corpuscular Hemoglobin Concent 32.2 % 33.0 % Red Cell Distribution Width 16.7 % 15.3 % Platelet Count 315 TH/MM3 296 TH/MM3 Mean Platelet Volume 8.9 FL 8.8 FL Prothrombin Time 10.1 SEC Prothromb Time International Ratio 1.0 RATIO Activated Partial Thromboplast Time 28.2 SEC Blood Urea Nitrogen 127 MG/DL Creatinine 6.54 MG/DL Random Glucose 95 MG/DL Calcium Level 7.8 MG/DL Phosphorus Level 6.2 MG/DL Magnesium Level 2.4 MG/DL Sodium Level 144 MEQ/L Potassium Level 3.0 MEQ/L Chloride Level 103 MEQ/L Carbon Dioxide Level 25.2 MEQ/L Anion Gap 16 MEQ/L Estimat Glomerular Filtration Rate 8 ML/MIN Date/Time Source Procedure Growth Status 09/29/17 17:55 Blood Peripheral Aerobic Blood Culture - Final Streptococcus Pneumoniae Complete 09/29/17 17:55 Anaerobic Blood Culture - Final Streptococcus Pneumoniae Complete 09/30/17 11:30 Cerebral Spinal Fluid Lumbar Puncture Gram Stain - Final Complete 09/30/17 11:30 Cerebral Spinal Fluid Lumbar Puncture CSF Culture - Final NO GROWTH IN 72 HOURS Complete 09/29/17 18:00 Nasal Aspirate Influenza Types A,B Antigen (CYNTHIA) - Final NEGATIVE FOR FLU A AND B ANTIGEN.... Complete 10/02/17 04:40 Urine Catheterized Urine Urine Culture - Final NO GROWTH IN 24 HOURS. Complete Physical Examination HEENT: normocephalic; atraumatic; no jaundice. NGT, dark blood in cannister CHEST: coarse, wheezes CARDIAC: RRR ABDOMEN: Soft, obese, ventral hernia, no hepatosplenomegaly; bowel sounds are present in all four quadrants. rectal bag full of melanotic stool EXTREMITIES: No clubbing, cyanosis, or edema. SKIN: Normal; no rash; no jaundice. ACUPUNCTURE PHYSICIAN: sedated on vent (Shania Herman) Assessment and Plan Plan ASSESSMENT - bloody output NGT, melena - UGIB hx NSAID use frequently - anemia - hh trending down, hgb was 10.9 on admission and down to 6.1, now 6.8 after 2 x prbc. normocytic. likely multifactorial, in part 2/2 above. - acute bilat CVA, strep pneumo bacterial meningitis, respiratory failure, SEVERINO, per [facility] PLAN - EGD today 1230 - obtain consent, d/w pts daughter and she is agreeable to proceed - monitor HH - further recs to follow procedure pt seen by myself and Dr Eldridge and this note is on his behalf (Shania Herman) Physician Comments Patient seen and examined Agree with above Continue with current supportive care Monitor labs We will proceed with an upper endoscopy for anemia, melena, bloody return through the NG tube (Marcel Eldridge MD) Shania Herman Oct 07, 2017 09:27 Marcel Eldridge MD Oct 07, 2017 13:47
[2017-10-07] MEDS: FUROSEMIDE 40 MG/4 ML VIAL IV PUSH SCH (10:33)
[2017-10-07] MEDS ORDERED: PHENYLEPH/NS 1000 MCG/10 ML SYR IV ONE (12:00)
[2017-10-07] MEDS ORDERED: ePHEDrine/NS 25 MG/5 ML SYRINGE IV ONE (12:00)
[2017-10-07] MEDS ORDERED: PROPOFOL 200 MG/20 ML AMP IV ONE (12:00)
[2017-10-07] MEDS ORDERED: POTASSIUM CHLOR 20 MEQ PREMIX 100 ML IV ONE (13:00)
--- NOTE | 2017-10-07 13:04 | HHI.CCPN ---
Subjective Remarks/Hospital Course 09/29: This is a 72-year-old female with a PMH of Anxiety, Depression, Dementia and HTN who is brought to the ER by [employer] secondary to AMS and fever of 102. Patient unable to provide any history at this time, history obtained from records and report of collections assistant. On arrival, BP 134/64, HR 104, O2 sat 97% on RA, Temp 100.8. WBC 18.4. BUN 21. GFR 82. Lactic Acid normal. UA positive for UTI. CXR possible mild failure without consolidation. CT Abdomen/Pelvis no acute findings. CT Head probable ischemic changes anterior limb internal capsule on the left. S/p Blood Cultures positive for gram + cocci 10/10 bottles, Rocephin now, add Vancomycin. 09/30: Continued high grade fever, increasing leukocytosis. Brought to [facility] for labored tachypnea. She is clenching her jaw and possibly seizing. Will intubate and ventilate for airway protection, proceed directly to lumbar puncture, broaden abx coverage. 10/01: Patient intubated and placed on mechanical ventilation yesterday. Underwent lumbar puncture which showed cloudy CSF with CSF studies consistent with bacterial meningitis. Blood cultures with strep pneumo. Patient has already been evaluated by BERNARD Nelson. Currently remains sedated, orally intubated on mechanical ventilation. 10/02: Remains sedated, orally intubated on mechanical ventilation. Tolerating tube feeds. 10/03: Tolerated CPAP trial 2 hours yesterday. Back on propofol drip for sedation. Minimal urine output overnight. Tolerating tube feeding. 10/04: T-max 99.8. 350 cc urine output past 24 hours. 100 cc stool. Withdraws bilateral upper and lower extremities. Grasp. Positive gag and cough. Positive corneal reflex 10/05: Afebrile. 8 75 cc urine output past 24 hours. 1600 cc stool. Opens eyes. Spontaneously moving right lower extremity 10/06: Afebrile. 1300 cc urine overnight. 700 cc stools. Opens eyes. Spontaneously moves right upper and lower extremity. Withdraws to left upper lower extremity. Yawns. Subjective 10/07: Currently resting in bed. No active issues overnight. Objective Vital Signs Date Time Temp Pulse Resp B/P (MAP) Pulse Ox O2 Delivery O2 Flow Rate FiO2 10/07/17 12:47 92 40 10/07/17 10:45 99.0 73 29 124/67 10/06/17 19:00 Mechanical Ventilator Intake and Output 10/07/17 10/07/17 10/08/17 08:00 16:00 00:00 Intake Total 920 ml 450 ml Output Total 1300 ml Balance -380 ml 450 ml Result Diagram: 10/07/17 0600 10/07/17 0600 Other Results Microbiology Date/Time Source Procedure Growth Status 09/29/17 17:55 Blood Peripheral Aerobic Blood Culture - Final Streptococcus Pneumoniae Complete 09/29/17 17:55 Anaerobic Blood Culture - Final Streptococcus Pneumoniae Complete 09/30/17 11:30 Cerebral Spinal Fluid Lumbar Puncture Gram Stain - Final Complete 09/30/17 11:30 Cerebral Spinal Fluid Lumbar Puncture CSF Culture - Final NO GROWTH IN 72 HOURS Complete 09/29/17 18:00 Nasal Aspirate Influenza Types A,B Antigen (CYNTHIA) - Final NEGATIVE FOR FLU A AND B ANTIGEN.... Complete 10/02/17 04:40 Urine Catheterized Urine Urine Culture - Final NO GROWTH IN 24 HOURS. Complete Imaging Last Impressions Chest X-Ray 10/05/17 0600 Signed Impressions: Service Date/Time: Thursday, October 05, 2017 03:33 - CONCLUSION: Mild bilateral airspace opacities developing. Jordy Eastman MD Brain MRI 10/01/17 0000 Signed Impressions: Service Date/Time: Sunday, October 01, 2017 16:08 - CONCLUSION: Widespread punctate subacute infarctions involving multiple vasculature territories bilaterally. Jordy Levin MD Head CT 09/29/17 0000 Signed Impressions: Service Date/Time: Friday, September 29, 2017 21:16 - CONCLUSION: Probable ischemic changes in as described above. MRI would be of benefit. Jon Plata MD FACR Abdomen/Pelvis CT 09/29/17 0000 Signed Impressions: Service Date/Time: Friday, September 29, 2017 21:19 - CONCLUSION: Do not see the etiology of fever with altered mental status.. Diverticuli sigmoid colon without diverticulitis. No gallstones Jon Plata MD FACR Objective Remarks GENERAL: 72 YO AAF currently orotracheally intubated SKIN: Warm and dry. No rash HEAD: Atraumatic. Normocephalic. EYES: Pupils equal and round about 1 mm bilaterally and pinpoint. No scleral icterus. No injection or drainage. ENT: No nasal bleeding or discharge. Mucous membranes pink and moist. NECK: Trachea midline. No JVD. CARDIOVASCULAR: Regular rate and rhythm. S1, S2 no S4. II/ systolic murmur RESPIRATORY: Clear to auscultation. Breath sounds equal bilaterally. GASTROINTESTINAL: Abdomen soft, non-tender, nondistended. Hypoactive bowel sounds are appreciated MUSCULOSKELETAL: Extremities with trace bilateral lower extremity edema. No obvious deformities. NEUROLOGICAL: Spontaneously moves right and upper lower extremity. Opens eyes to voice. Withdraws to left upper and lower extremity. Date of Insertion: Oct 02, 2017 Line: Central Venous Catheter Side: Right Location: Subclavian A/P Assessment and Plan Neuro/Psych: Acute bilateral CVA Bacterial meningitis Dementia Depression/anxiety Elevated intraocular pressures Currently on currently off all sedation Acetaminophen 650 mg by tube every 6 hours. Fever Latanoprost 0.005% 1 drop each eye at night CT brain on admission revealed ischemic change anterior limb of internal capsule left side. MRI brain 10/01 revealed widespread bilateral subacute infarction largest in the left parietal occipital region. 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 Continue donepezil 10 mg p.o. daily Cardiovascular: History of hypertension Moderate MR Holding amlodipine 10 mg daily/home medication for hypertension. Resume clinically indicated 2D echocardiogram revealed EF 75%. LVH. Moderate MR. Mild TR/MI On atorvastatin 10 mg daily for dyslipidemia Pulmonary: Acute respiratory failure PRVC 16/500/1.2/5/40 Ventilator bundle Albuterol/ipratropium aerosols every 6 hours with albuterol aerosols every 2 hours as needed for dyspnea PSV trials daily GI/liver: Hypoalbuminemia Descending colon Diverticulosis Upper GI bleed Currently n.p.o. Previously on Nepro goal 45 cc now. Nutrition recommended vital high-protein 65 cc an hour. Pantoprazole drip at 8 mg an hour status post 80 mg IV bolus Docusate sodium/senna 1 tablet twice daily for bowel regimen GI consult. EGD at [address] abdomen/pelvis revealed descending colon diverticulosis. No diverticulitis. Renal/: Acute kidney injury No hydronephrosis Urine eosinophils negative. Intrinsic renal by urine electrolytes Followed by nephrology. Currently on furosemide 40 mg IV every 12 hours with 0.9% NaCl at 100 cc now Holding furosemide in light of the GI bleed. Resume clinically indicated.. ID: Strep pneumonia bacteremia/meningitis Continue antibiotic coverage per Dr. Nelson from ID. Currently on IV ceftriaxone 2 g IV every 12 hours per ID, Vancomycin stopped 10/02. 09/29 blood cultures growing strep pneumo 4 out of 4 bottles. 09/30 -CSF -no growth HSV PCR negative Endocrine: Sliding scale insulin Accu-Cheks every 6 hours to maintain euglycemia with Novulog low regimen Heme: Leukocytosis Microcytic anemia -acute blood loss Follow CBC. Follow trends Transfused 5 units PRBCs past 24 hours Serial hemoglobins FEN: Hypokalemia Hyperphosphatemia 20 meq KCl IV 1 now. Recheck this afternoon MSK: Osteoarthritis Elevated BMI Positive KAREL -1: 40/speckled Holding meloxicam 7.5 mg p.o. daily. PT evaluate and treat Confirmatory KAREL test ordered. Noted that 20% of all women have weakly positive KAREL's that do not convert to lupus/ Prophylaxis: Pantoprazole drip/SCDs. Subcutaneous heparin 5000 units every 12 hours held in light of GI bleed Lines: Right subclavian central line placed 10/02. Explained current clinical status with patient's daughter at bedside in detail including plan of care and she voiced understanding and was agreeable. Level 3 follow-up Bobby Machado MD Oct 07, 2017 13:04
--- NOTE | 2017-10-07 13:49 | PD.PROCEDR ---
GI Procedure PROCEDURE PERFORMED EGD with biopsy INDICATION FOR PROCEDURE Anemia, melena, upper GI bleed PROCEDURE: The procedure, risks and benefits were discussed with Patient/POA and informed consent was obtained. Anesthesia sedated Patient with Diprivan. Patient was placed in the left lateral decubitus position. EGD: The Pentax videoscope was introduced through the oropharynx and advanced to the second portion of the duodenum under direct visualization. Retroflexion was performed in the stomach. FINDINGS: The esophagus this was normal The stomach there was a 1 cm ulcer in the antrum clean based no visible vessel no active bleeding no raised edges this was biopsied there is some patchy erythema in the antrum ulcer but the rest of the stomach was unremarkable with no blood or bleeding noted in the stomach The duodenum this was normal ESTIMATED BLOOD LOSS: None SPECIMENS REMOVED: Antral biopsies COMPLICATIONS: None IMPRESSION: Gastric ulcer Gastritis PLAN: Await biopsies Continue PPI Precautions with anticoagulation EGD in 2 months Avoid NSAIDs and aspirin Marcel Eldridge MD Oct 07, 2017 13:49
--- NOTE | 2017-10-07 15:45 | HHI.NPPN ---
Subjective General Problems: Anemia Renal Failure: Acute History of Present Illness Patient is a 72-year-old female with a PMH of Anxiety, Depression, Dementia and HTN who is brought to the ER by [employer] secondary to AMS and fever of 102. Patient unable to provide any history at this time, history obtained from records and and daughter. UA positive for UTI. CXR possible mild failure without consolidation. CT Abdomen/Pelvis no acute findings. CT Head probable ischemic changes anterior limb internal capsule on the left. Patient is intubated FiO2 at 40 %. BC with streptococcus pneumoniae. Patient has received vancomycin and Rocephin. Nephrology is consulted for acute change in renal function with a creatinine of 2.76 with a drop in UOP at 300 ml over 24 hours. Patient is also noted to have a CO2 level of 16.8 this morning and is on a sodium bicarbonate gtt. Per the daughter patient has not history of kidney disease and has not been followed by a mill oiler in the past. Patient admission creatinine was 0.83. Additional Remarks Patient remain on the vent., on 40% Fio2, and sedated, clinically same. Review of Systems General General Remarks Unable to ROS patient is intubated Objective Data Data 10/07/17 10/08/17 19:00 07:00 Intake Total 450 ml Balance 450 ml Packed Cells 400 ml Blood Product IV Normal Saline Flush 50 ml Vital Signs Date Time Temp Pulse Resp B/P (MAP) Pulse Ox O2 Delivery O2 Flow Rate FiO2 10/07/17 12:47 92 40 10/07/17 10:45 99.0 73 29 124/67 95 10/07/17 10:35 99.1 73 29 119/61 96 10/07/17 10:00 99.2 72 39 121/58 93 10/07/17 09:45 99.2 74 37 121/58 93 10/07/17 09:15 77.0 77 37 125/60 92 10/07/17 08:45 99.3 78 37 123/61 93 10/07/17 08:20 99.3 76 30 114/64 95 10/07/17 08:04 95 40 10/07/17 08:04 40 10/07/17 06:00 77 10/07/17 04:02 97 40 10/07/17 04:00 79 10/07/17 04:00 40 10/07/17 04:00 99.4 78 26 121/60 (80) 96 10/07/17 03:00 99.4 78 26 116/58 97 10/07/17 02:00 75 10/07/17 00:34 95 40 10/07/17 00:27 99.2 83 24 123/60 100 10/07/17 00:12 99.2 89 26 123/70 95 10/07/17 00:00 76 10/07/17 00:00 40 10/07/17 00:00 99.2 78 22 118/59 (78) 95 10/06/17 22:00 80 10/06/17 21:41 93 40 10/06/17 20:10 99.2 78 16 132/61 95 10/06/17 20:00 99.2 84 16 131/57 (81) 95 10/06/17 20:00 85 10/06/17 20:00 40 10/06/17 19:00 99 Mechanical Ventilator 40 10/06/17 18:00 81 10/06/17 17:28 97 40 10/06/17 16:00 78 10/06/17 16:00 40 10/06/17 16:00 98.7 78 19 123/63 (83) 96 -: 10/07/17 0600 10/07/17 0600 Tubes & Lines: Koo Physical Exam General Appearance Remarks Intubated and sedated. Pulmonary Resp Exam: Breath Sounds Equal, No Distress, Diminished Breath Sounds Cardiology CV Exam: Regular Gastrointestinal/Abdomen GI Exam: Soft, Non-Tender, Distended Genitourinary Exam: Flank Non-Tender Integumentary Skin Exam: Clear, Warm Extremeties Extremities Exam: Moderate Edema, Pitting Edema, Dependent Edema Neurologic Neuro Exam: Sedated Assessment/Plan Discussed Condition With: Patient, Daughter Assessment Summary: SEVERINO/Acute Renal Failure Electrolyte Assessment: Hypokalemia Problem List: (1) SEVERINO (acute kidney injury) ICD Codes: N17.9 - Acute kidney failure, unspecified Plan: Acute kidney injury with a creatinine of 2.76 up from 1.67 yesterday. On admission creatinine was less than 1. SEVERINO possible ATN with a FeNA of 18. Possible related to EBRLIN or infection. UOP improving [address] of abdomen: Nonobstructing 7 mm right renal stone noted. Plan Continue IVF Continue lasix every 8 hours Hypokalemia with replacement given Maintain Strict I+O Monitor UOP and BMP Avoid nephrotoxins when possible Creatinine continues to increase along with the BUN. Will continue to monitor since UOP has improved. No urgent indication of Dialysis at present. BUN and Creatinine continue to increase, K i low. Hgb dropped , possible transfusion. HD possibly in AM. (2) Bacteremia ICD Codes: R78.81 - Bacteremia Plan: continue antibiotics renal dosing. (3) Hypertension, essential ICD Codes: I10 - Hypertension, essential Status: Acute Plan: Well controlled. (4) CVA (cerebral vascular accident) ICD Codes: I63.9 - Cerebral infarction, unspecified Plan: Neurology consulted and managing. Kingston Kirby MD Oct 07, 2017 15:45
[2017-10-07 16:31] LABS: HEMATOCRIT 28.8 % (35.0-46.0); HEMOGLOBIN 10.3 GM/DL (11.6-15.3)
[2017-10-07] MEDS: LATANOPROST 0.005% OPHT SOLN 2.5 ML BTL EACH EYE SCH (20:49)
[2017-10-07] MEDS: ATORVASTATIN 10 MG TAB PO SCH (20:49)
[2017-10-07] MEDS: DONEPEZIL HCL 5 MG TAB PO SCH (20:49)
[2017-10-07 22:24] LABS: HEMOGLOBIN 10.2 GM/DL (11.6-15.3)
[2017-10-08] VITALS (17 sets, daily range): BP systolic 127–167; BP diastolic 61–87; PULSE 60–74; RESP 17–24; TEMP 98.4–99.3; O2SAT 92–97
[2017-10-08] MEDS: cefTRIAXone INJ 2,000 MG in SODIUM CHLORIDE 0.9% INJ 100 ML IV SCH ×2 (00:36→12:41)
[2017-10-08] MEDS: SODIUM CHLOR 0.9% 1000 ML INJ 1,000 ML IV SCH ×2 (04:11→16:39)
--- NOTE | 2017-10-08 06:24 | RADRPT ---
EXAM DATE/TIME: 10/08/2017 04:19 [place] COMPARISON: CHEST SINGLE AP, October 05, 2017, 3:33. INDICATIONS : Short of breath, respiratory failure MEDICAL HISTORY : Hypertension. bacterial meningitis SURGICAL HISTORY : Appendectomy. Hysterectomy. bilateral knees ENCOUNTER: Subsequent ACUITY: 1 week PAIN SCORE: Non-responsive. LOCATION: Bilateral chest FINDINGS: Endotracheal to nasogastric tube and right subclavian central line are stable. There has been slight increase in confluence of hazy bilateral pleural-parenchymal opacities. Cardiac contours are grossly unchanged. CONCLUSION: Slight interval worsening in aeration Jordy Levin MD on October 08, 2017 at 6:21 Board Certified Radiologist. This report was verified electronically.
[2017-10-08 07:06] LABS: BASOPHIL # 0.1 TH/MM3 (0-0.2); BASOPHIL % 0.3 % (0.0-2.0); EOSINOPHIL # 0.4 TH/MM3 (0-0.4); HEMATOCRIT 29.8 % (35.0-46.0); LYMPH % 8.8 % (9.0-44.0); LYMPHOCYTE # 1.7 TH/MM3 (1.0-4.8); MEAN CELL VOLUME 81.8 FL (80.0-100.0); MEAN CORPUSCULAR HEMOGLOBIN 27.6 PG (27.0-34.0); MEAN CORPUSCULAR HGB CONC 33.7 % (32.0-36.0); MEAN PLATELET VOLUME 8.8 FL (7.0-11.0); MONO % 3.9 % (0.0-8.0); MONOCYTE # 0.7 TH/MM3 (0-0.9); PLATELET COUNT 314 TH/MM3 (150-450); RED BLOOD COUNT 3.64 MIL/MM3 (4.00-5.30); RED CELL DISTRIBUTION WIDTH 15.3 % (11.6-17.2); WHITE BLOOD COUNT 18.8 TH/MM3 (4.0-11.0)
[2017-10-08 07:30] LABS: ALBUMIN 1.3 GM/DL (3.4-5.0); AST (GOT) 28 U/L (15-37); BLOOD UREA NITROGEN 128 MG/DL (7-18); CALCIUM 8.5 MG/DL (8.5-10.1); CHLORIDE 108 MEQ/L (98-107); GLOMERULAR FILTRATION RATE 8 ML/MIN (>89); GLUCOSE,RANDOM 97 MG/DL (74-106); MAGNESIUM 2.4 MG/DL (1.5-2.5); SODIUM (NA) 146 MEQ/L (136-145)
[2017-10-08 07:31] LABS: ALT (GPT) 19 U/L (10-53); PHOSPHORUS 7.2 MG/DL (2.5-4.9)
[2017-10-08 07:33] LABS: ALKALINE PHOSPHATASE 98 U/L (45-117); TOTAL BILIRUBIN ADULT 0.4 MG/DL (0.2-1.0); TOTAL PROTEIN 6.6 GM/DL (6.4-8.2)
[2017-10-08] MEDS: DOCUSATE SODIUM 50 MG/SENNA 8.6 MG TAB PO SCH ×2 (09:08→19:53)
[2017-10-08] MEDS: PANTOPRAZOLE INJ 80 MG in SODIUM CHLORIDE 0.9% INJ 100 ML IV SCH ×2 (09:09→18:54)
[2017-10-08] MEDS: SODIUM CHLORIDE 0.9% FLUSH 10 ML FLUSH IV FLUSH SCH ×2 (09:09→20:26)
[2017-10-08] MEDS: ATENOLOL 25 MG TAB PO SCH (09:12)
[2017-10-08] MEDS: CHLORHEXIDINE 0.12% (ORAL KIT) 15 ML CUP MT SCH ×2 (09:12→20:16)
--- NOTE | 2017-10-08 11:22 | HHI.GIFU ---
Subjective Remarks Pt intubated on vent. Family at bedside. NGT output no blood today. (Shania Herman) Objective Vitals I&O Vital Signs Date Time Temp Pulse Resp B/P (MAP) Pulse Ox O2 Delivery O2 Flow Rate FiO2 10/08/17 08:14 94 40 10/08/17 06:00 72 10/08/17 04:46 94 40 10/08/17 04:00 72 10/08/17 04:00 99.2 72 17 140/65 (90) 96 10/08/17 04:00 40 10/08/17 02:00 69 10/08/17 00:00 40 10/08/17 00:00 98.9 72 18 127/61 (83) 97 10/08/17 00:00 72 10/07/17 23:48 94 40 10/07/17 22:00 68 10/07/17 20:53 96 40 10/07/17 20:00 98.6 70 16 139/85 (103) 95 10/07/17 20:00 40 10/07/17 20:00 70 10/07/17 19:00 95 Mechanical Ventilator 2.00 40 10/07/17 18:00 71 10/07/17 16:00 98.4 69 21 128/66 (86) 94 10/07/17 16:00 69 10/07/17 16:00 40 10/07/17 15:44 96 40 10/07/17 14:00 72 10/07/17 12:47 92 40 10/07/17 12:00 99.0 72 28 136/65 (88) 94 10/07/17 12:00 72 10/07/17 12:00 40 I/O 10/07/17 10/07/17 10/07/17 10/08/17 10/08/17 10/08/17 07:00 15:00 23:00 07:00 15:00 23:00 Intake Total 920 ml 550 ml 33002 ml 200 ml Output Total 1300 ml 0 ml 1300 ml 1400 ml Balance -380 ml 550 ml 8803 ml -1200 ml IV Total 100 ml 02716 ml 200 ml Tube Feeding 0 ml Packed Cells 900 ml 400 ml Blood Product IV Normal Saline Flush 20 ml 50 ml Output Urine Total 1100 ml 1000 ml 1000 ml Stool Total 200 ml 300 ml 400 ml Tube Feeding Residual Discard 0 ml # Bowel Movements 1 Laboratory Laboratory Tests Test 10/07/17 16:15 10/07/17 22:17 10/08/17 06:00 Hemoglobin 10.3 10.2 10.0 Hematocrit 28.8 30.0 29.8 White Blood Count 18.8 Red Blood Count 3.64 Mean Corpuscular Volume 81.8 Mean Corpuscular Hemoglobin 27.6 Mean Corpuscular Hemoglobin Concent 33.7 Red Cell Distribution Width 15.3 Platelet Count 314 Mean Platelet Volume 8.8 Neutrophils (%) (Auto) 85.0 Lymphocytes (%) (Auto) 8.8 Monocytes (%) (Auto) 3.9 Eosinophils (%) (Auto) 2.0 Basophils (%) (Auto) 0.3 Neutrophils # (Auto) 16.0 Lymphocytes # (Auto) 1.7 Monocytes # (Auto) 0.7 Eosinophils # (Auto) 0.4 Basophils # (Auto) 0.1 CBC Comment DIFF FINAL Differential Comment Blood Urea Nitrogen 128 Creatinine 6.50 Random Glucose 97 Total Protein 6.6 Albumin 1.3 Calcium Level 8.5 Phosphorus Level 7.2 Magnesium Level 2.4 Alkaline Phosphatase 98 Aspartate Amino Transf (AST/SGOT) 28 Alanine Aminotransferase (ALT/SGPT) 19 Total Bilirubin 0.4 Sodium Level 146 Potassium Level 3.3 Chloride Level 108 Carbon Dioxide Level 21.0 Anion Gap 17 Estimat Glomerular Filtration Rate 8 Date/Time Source Procedure Growth Status 09/29/17 17:55 Blood Peripheral Aerobic Blood Culture - Final Streptococcus Pneumoniae Complete 09/29/17 17:55 Anaerobic Blood Culture - Final Streptococcus Pneumoniae Complete 09/30/17 11:30 Cerebral Spinal Fluid Lumbar Puncture Gram Stain - Final Complete 09/30/17 11:30 Cerebral Spinal Fluid Lumbar Puncture CSF Culture - Final NO GROWTH IN 72 HOURS Complete 09/29/17 18:00 Nasal Aspirate Influenza Types A,B Antigen (CYNTHIA) - Final NEGATIVE FOR FLU A AND B ANTIGEN.... Complete 10/02/17 04:40 Urine Catheterized Urine Urine Culture - Final NO GROWTH IN 24 HOURS. Complete Imaging Last Impressions Chest X-Ray 10/08/17 0600 Signed Impressions: Service Date/Time: Sunday, October 08, 2017 04:19 - CONCLUSION: Slight interval worsening in aeration Jordy Levin MD Brain MRI 10/01/17 0000 Signed Impressions: Service Date/Time: Sunday, October 01, 2017 16:08 - CONCLUSION: Widespread punctate subacute infarctions involving multiple vasculature territories bilaterally. Jordy Levin MD Head CT 09/29/17 0000 Signed Impressions: Service Date/Time: Friday, September 29, 2017 21:16 - CONCLUSION: Probable ischemic changes in as described above. MRI would be of benefit. Jon Plata MD FACR Abdomen/Pelvis CT 09/29/17 0000 Signed Impressions: Service Date/Time: Friday, September 29, 2017 21:19 - CONCLUSION: Do not see the etiology of fever with altered mental status.. Diverticuli sigmoid colon without diverticulitis. No gallstones Jon Plata MD FACR Physical Exam HEENT: normocephalic; atraumatic; no jaundice. CHEST: CTA CARDIAC: RRR ABDOMEN: Soft, nondistended, nontender; no hepatosplenomegaly; bowel sounds are present in all four quadrants. dark stool in rectal bag. green output ngt EXTREMITIES: No clubbing, cyanosis; trace BLE edema SKIN: Normal; no rash; no jaundice. ENERGY CONSERVATION SPECIALIST: opens eyes (Shania Herman) Assessment and Plan Plan ASSESSMENT - bloody output NGT, melena - UGIB hx NSAID use frequently - anemia - hh trending down, hgb was 10.9 on admission and down to 6.1, now 6.8 after 2 x prbc. normocytic. likely multifactorial, in part 2/2 above. - acute bilat CVA, strep pneumo bacterial meningitis, respiratory failure, SEVERINO, per [facility] 10/08/17 s/p EGD 10/07 found gastric ulcer, no visible vessel or bleeding, gastritis. HH is stable. NGT output not bloody today. d/w [facility] PLAN - await bx - monitor HH - notify GI of active bleeding - BID ppi - EGD in 2m - supportive care pt seen by myself and Dr Roldan and this note is on his behalf (Shania Herman) Physician Comments Seen and examined with RUDOLPH, no bleeding today, remains intubated. Start TF as needed. Protonix. GI will sign off. FU as recommended . Discussed with family at the bedside. (Negro Roldan MD) Shania Herman Oct 08, 2017 11:22 Negro Roladn MD Oct 08, 2017 16:51
[2017-10-08] MEDS: INSULIN ASPART SUPPLEMENTAL SCALE SQ SCH ×3 (12:00→18:00)
--- NOTE | 2017-10-08 12:37 | HHI.IDPN ---
Subjective Subjective Remarks doing really good follows commands and nods approprietely moves R side better than L wbc keep going up to 18,8 today makes good urine Antibiotics CFTX 2 g q 12 Allergies: Coded Allergies: No Known Allergies (Verified Allergy, Unknown, 09/29/17) Objective . Vital Signs Date Time Temp Pulse Resp B/P (MAP) Pulse Ox O2 Delivery O2 Flow Rate FiO2 10/08/17 08:14 94 40 10/08/17 06:00 72 10/08/17 04:46 94 40 10/08/17 04:00 72 10/08/17 04:00 99.2 72 17 140/65 (90) 96 10/08/17 04:00 40 10/08/17 02:00 69 10/08/17 00:00 40 10/08/17 00:00 98.9 72 18 127/61 (83) 97 10/08/17 00:00 72 10/07/17 23:48 94 40 10/07/17 22:00 68 10/07/17 20:53 96 40 10/07/17 20:00 98.6 70 16 139/85 (103) 95 10/07/17 20:00 40 10/07/17 20:00 70 10/07/17 19:00 95 Mechanical Ventilator 2.00 40 10/07/17 18:00 71 10/07/17 16:00 98.4 69 21 128/66 (86) 94 10/07/17 16:00 69 10/07/17 16:00 40 10/07/17 15:44 96 40 10/07/17 14:00 72 10/07/17 12:47 92 40 . Laboratory Tests Test 10/06/17 17:30 10/07/17 06:00 10/07/17 16:15 10/07/17 22:17 White Blood Count 17.3 TH/MM3 15.9 TH/MM3 Red Blood Count 2.39 MIL/MM3 2.61 MIL/MM3 Hemoglobin 6.1 GM/DL 6.8 GM/DL 10.3 GM/DL 10.2 GM/DL Hematocrit 19.0 % 20.7 % 28.8 % 30.0 % Mean Corpuscular Volume 79.5 FL 79.1 FL Mean Corpuscular Hemoglobin 25.6 PG 26.1 PG Mean Corpuscular Hemoglobin Concent 32.2 % 33.0 % Red Cell Distribution Width 16.7 % 15.3 % Platelet Count 315 TH/MM3 296 TH/MM3 Mean Platelet Volume 8.9 FL 8.8 FL Test 10/08/17 06:00 White Blood Count 18.8 TH/MM3 Red Blood Count 3.64 MIL/MM3 Hemoglobin 10.0 GM/DL Hematocrit 29.8 % Mean Corpuscular Volume 81.8 FL Mean Corpuscular Hemoglobin 27.6 PG Mean Corpuscular Hemoglobin Concent 33.7 % Red Cell Distribution Width 15.3 % Platelet Count 314 TH/MM3 Mean Platelet Volume 8.8 FL Neutrophils (%) (Auto) 85.0 % Lymphocytes (%) (Auto) 8.8 % Monocytes (%) (Auto) 3.9 % Eosinophils (%) (Auto) 2.0 % Basophils (%) (Auto) 0.3 % Neutrophils # (Auto) 16.0 TH/MM3 Lymphocytes # (Auto) 1.7 TH/MM3 Monocytes # (Auto) 0.7 TH/MM3 Eosinophils # (Auto) 0.4 TH/MM3 Basophils # (Auto) 0.1 TH/MM3 CBC Comment DIFF FINAL Differential Comment Laboratory Tests Test 10/07/17 06:00 10/08/17 06:00 Blood Urea Nitrogen 127 MG/DL 128 MG/DL Creatinine 6.54 MG/DL 6.50 MG/DL Random Glucose 95 MG/DL 97 MG/DL Calcium Level 7.8 MG/DL 8.5 MG/DL Phosphorus Level 6.2 MG/DL 7.2 MG/DL Magnesium Level 2.4 MG/DL 2.4 MG/DL Sodium Level 144 MEQ/L 146 MEQ/L Potassium Level 3.0 MEQ/L 3.3 MEQ/L Chloride Level 103 MEQ/L 108 MEQ/L Carbon Dioxide Level 25.2 MEQ/L 21.0 MEQ/L Anion Gap 16 MEQ/L 17 MEQ/L Estimat Glomerular Filtration Rate 8 ML/MIN 8 ML/MIN Total Protein 6.6 GM/DL Albumin 1.3 GM/DL Alkaline Phosphatase 98 U/L Aspartate Amino Transf (AST/SGOT) 28 U/L Alanine Aminotransferase (ALT/SGPT) 19 U/L Total Bilirubin 0.4 MG/DL Imaging [place] Last Impressions Chest X-Ray 10/08/17 0600 Signed Impressions: Service Date/Time: Sunday, October 08, 2017 04:19 - CONCLUSION: Slight interval worsening in aeration Jordy Levin MD Brain MRI 10/01/17 0000 Signed Impressions: Service Date/Time: Sunday, October 01, 2017 16:08 - CONCLUSION: Widespread punctate subacute infarctions involving multiple vasculature territories bilaterally. Jordy Levin MD Head CT 09/29/17 0000 Signed Impressions: Service Date/Time: Friday, September 29, 2017 21:16 - CONCLUSION: Probable ischemic changes in as described above. MRI would be of benefit. Jon Plata MD FACR Abdomen/Pelvis CT 09/29/17 0000 Signed Impressions: Service Date/Time: Friday, September 29, 2017 21:19 - CONCLUSION: Do not see the etiology of fever with altered mental status.. Diverticuli sigmoid colon without diverticulitis. No gallstones Jon Plata MD FACR Physical Exam CONSTITUTIONAL/GENERAL: This is an obese elderly patient, in no apparent distress. on vent TUBES/LINES/DRAINS: SKIN: No jaundice, rashes, or lesions. Skin temperature appropriate. Not diaphoretic. HEAD: Atraumatic. Normocephalic. EYES: Pupils equal and round and reactive. Extraocular motions intact. No scleral icterus. No injection or drainage. Fundi not examined. CARDIOVASCULAR: Regular rate and rhythm without murmurs, gallops, or rubs. No JVD. Peripheral pulses symmetric. RESPIRATORY/CHEST: Symmetric, unlabored respirations. Clear to auscultation. Breath sounds equal bilaterally. No wheezes, rales, or rhonchi. GASTROINTESTINAL: Abdomen soft, non-tender, nondistended. No hepato-splenomegaly , or palpable masses. No guarding. Bowel sounds present. GENITOURINARY: Without palpable bladder distension. Koo catheter in place with good amount of yellow urine MUSCULOSKELETAL: Extremities without clubbing, cyanosis, + mild edema edema. NEUROLOGICAL: awake, nods approprietely following commands moves all 4 extremeties but R side is stronger PSYCHIATRIC: calm Assessment & Plan Remarks Bacterial meningtis 2/2 Strep pneumo mendez S improving neurological status Strep pneumo bacteremia Acute VDRF Critically ill, stable Diarrrea, c.diff negative ARF, non oliguric leukocytosis - worsenng diarrhea, abx associated cont CFTX 2 gm q 12 fort total of 14 days dc isolation monitor creatine monitor WBC dw RN dw family Jennifer Nelson MD Oct 08, 2017 12:37
[2017-10-08] MEDS: ARTIFICIAL TEARS OPTH SOLN 15 ML BTL EACH EYE SCH ×2 (12:43→22:00)
--- NOTE | 2017-10-08 15:09 | HHI.NPPN ---
Subjective General Problems: Anemia Renal Failure: Acute History of Present Illness Patient is a 72-year-old female with a PMH of Anxiety, Depression, Dementia and HTN who is brought to the ER by International Marketing Coordinator secondary to AMS and fever of 102. Patient unable to provide any history at this time, history obtained from records and and daughter. UA positive for UTI. CXR possible mild failure without consolidation. CT Abdomen/Pelvis no acute findings. CT Head probable ischemic changes anterior limb internal capsule on the left. Patient is intubated FiO2 at 40 %. BC with streptococcus pneumoniae. Patient has received vancomycin and Rocephin. Nephrology is consulted for acute change in renal function with a creatinine of 2.76 with a drop in UOP at 300 ml over 24 hours. Patient is also noted to have a CO2 level of 16.8 this morning and is on a sodium bicarbonate gtt. Per the daughter patient has not history of kidney disease and has not been followed by a hot press operator in the past. Patient admission creatinine was 0.83. Additional Remarks Patient remain on the vent., on 40% Fio2, per DTR patient has been opening eyes to commands. (Charissa Jones) Review of Systems General General Remarks Unable to ROS patient is intubated (Charissa Jones) Objective Data Data Vital Signs Date Time Temp Pulse Resp B/P (MAP) Pulse Ox O2 Delivery O2 Flow Rate FiO2 10/08/17 12:59 93 40 10/08/17 08:14 94 40 10/08/17 06:00 72 10/08/17 04:46 94 40 10/08/17 04:00 72 10/08/17 04:00 99.2 72 17 140/65 (90) 96 10/08/17 04:00 40 10/08/17 02:00 69 10/08/17 00:00 40 10/08/17 00:00 98.9 72 18 127/61 (83) 97 10/08/17 00:00 72 10/07/17 23:48 94 40 10/07/17 22:00 68 10/07/17 20:53 96 40 10/07/17 20:00 98.6 70 16 139/85 (103) 95 10/07/17 20:00 40 10/07/17 20:00 70 10/07/17 19:00 95 Mechanical Ventilator 2.00 40 10/07/17 18:00 71 10/07/17 16:00 98.4 69 21 128/66 (86) 94 10/07/17 16:00 69 10/07/17 16:00 40 10/07/17 15:44 96 40 (Charissa Jones) -: 10/08/17 0600 10/08/17 0600 Tubes & Lines: Villanueva (Charissa Jones) Physical Exam General Appearance Remarks intubated (Charissa Jones) Pulmonary Resp Exam: Breath Sounds Equal, No Distress, Diminished Breath Sounds (Charissa Jones) Cardiology CV Exam: Regular (Charissa Jones) Gastrointestinal/Abdomen GI Exam: Soft, Non-Tender, Distended (Charissa Jones) Genitourinary Exam: Flank Non-Tender Remarks indwelling villanueva catheter (Charissa Jones) Integumentary Skin Exam: Clear, Warm (Charissa Jones) Extremeties Extremities Exam: Moderate Edema, Pitting Edema, Dependent Edema (Charissa Jones) Neurologic Neuro Exam: Sedated (Charissa Jones) Assessment/Plan Discussed Condition With: Patient, Daughter Assessment Summary: SEVERINO/Acute Renal Failure Electrolyte Assessment: Hypokalemia Problem List: (1) SEVERINO (acute kidney injury) ICD Codes: N17.9 - Acute kidney failure, unspecified Plan: Acute kidney injury with a creatinine of 2.76 up from 1.67 yesterday. On admission creatinine was less than 1. SEVERINO possible ATN with a FeNA of 18. Possible related to [place] or infection. Good UOP CT of abdomen: Nonobstructing 7 mm right renal stone noted. Plan Continue IVF Maintain Strict I+O Monitor UOP and BMP Avoid nephrotoxins when possible Creatinine at 6.54 from 6.50 will continue to monitor since good UOP and first day with no bump in creatinine. No urgent indication of Dialysis at present K 3.3 (2) Bacteremia ICD Codes: R78.81 - Bacteremia Plan: continue antibiotics renal dosing. (3) Hypertension, essential ICD Codes: I10 - Hypertension, essential Status: Acute Plan: Well controlled. (4) CVA (cerebral vascular accident) ICD Codes: I63.9 - Cerebral infarction, unspecified Plan: Neurology consulted and managing. (Charissa Jones) Problem List: (1) SEVERINO (acute kidney injury) ICD Codes: N17.9 - Acute kidney failure, unspecified Plan: Acute kidney injury with a creatinine of 2.76 up from 1.67 yesterday. On admission creatinine was less than 1. SEVERINO possible ATN with a FeNA of 18. Possible related to [place] or infection. Good UOP CT of abdomen: Nonobstructing 7 mm right renal stone noted. Plan Continue IVF Maintain Strict I+O Monitor UOP and BMP Avoid nephrotoxins when possible Creatinine at 6.54 from 6.50 will continue to monitor since good UOP and first day with no bump in creatinine. No urgent indication of Dialysis at present K 3.3. Patient seen and examined, agree with above. Creatinine is almost same, D/W the daughter. HD if get worse. (2) Bacteremia ICD Codes: R78.81 - Bacteremia Plan: continue antibiotics renal dosing. (3) Hypertension, essential ICD Codes: I10 - Hypertension, essential Status: Acute Plan: Well controlled. (4) CVA (cerebral vascular accident) ICD Codes: I63.9 - Cerebral infarction, unspecified Plan: Neurology consulted and managing. (Kingston Kirby MD) Charissa Jones Oct 08, 2017 15:09 Kingston Kirby MD Oct 08, 2017 18:10
[2017-10-08] MEDS: DONEPEZIL HCL 5 MG TAB PO SCH (19:53)
[2017-10-08] MEDS: ATORVASTATIN 10 MG TAB PO SCH (19:53)
[2017-10-08] MEDS: LATANOPROST 0.005% OPHT SOLN 2.5 ML BTL EACH EYE SCH (20:17)
--- NOTE | 2017-10-08 21:42 | HHI.CCPN ---
Subjective Remarks/Hospital Course 09/29: This is a 72-year-old female with a PMH of Anxiety, Depression, Dementia and HTN who is brought to the ER by Hospital Nurse secondary to AMS and fever of 102. Patient unable to provide any history at this time, history obtained from records and report of business sales consultant. On arrival, BP 134/64, HR 104, O2 sat 97% on RA, Temp 100.8. WBC 18.4. BUN 21. GFR 82. Lactic Acid normal. UA positive for UTI. CXR possible mild failure without consolidation. CT Abdomen/Pelvis no acute findings. CT Head probable ischemic changes anterior limb internal capsule on the left. S/p Blood Cultures positive for gram + cocci 10/10 bottles, Rocephin now, add Vancomycin. 09/30: Continued high grade fever, increasing leukocytosis. Brought to [facility] for labored tachypnea. She is clenching her jaw and possibly seizing. Will intubate and ventilate for airway protection, proceed directly to lumbar puncture, broaden abx coverage. 10/01: Patient intubated and placed on mechanical ventilation yesterday. Underwent lumbar puncture which showed cloudy CSF with CSF studies consistent with bacterial meningitis. Blood cultures with strep pneumo. Patient has already been evaluated by BERNARD Nelson. Currently remains sedated, orally intubated on mechanical ventilation. 10/02: Remains sedated, orally intubated on mechanical ventilation. Tolerating tube feeds. 10/03: Tolerated CPAP trial 2 hours yesterday. Back on propofol drip for sedation. Minimal urine output overnight. Tolerating tube feeding. 10/04: T-max 99.8. 350 cc urine output past 24 hours. 100 cc stool. Withdraws bilateral upper and lower extremities. Grasp. Positive gag and cough. Positive corneal reflex 10/05: Afebrile. 8 75 cc urine output past 24 hours. 1600 cc stool. Opens eyes. Spontaneously moving right lower extremity 10/06: Afebrile. 1300 cc urine overnight. 700 cc stools. Opens eyes. Spontaneously moves right upper and lower extremity. Withdraws to left upper lower extremity. Yawns. 10/07: Currently resting in bed in no acute distress. No active issues overnight. Subjective 10/08: EGD revealed solitary ulcer not actively bleeding. Hemoglobin remained stable. Status post 5 units PRBCs. Slowly more alert and awake. Objective Vital Signs Date Time Temp Pulse Resp B/P (MAP) Pulse Ox O2 Delivery O2 Flow Rate FiO2 10/08/17 19:00 95 Mechanical Ventilator 40 10/08/17 18:00 60 10/08/17 16:00 98.4 24 150/67 (94) 10/07/17 19:00 2.00 Intake and Output 10/08/17 10/08/17 10/09/17 08:00 16:00 00:00 Intake Total 200 ml 1520 ml Output Total 1400 ml 1100 ml Balance -1200 ml 420 ml Result Diagram: 10/08/17 0600 10/08/17 06 Other Results Microbiology Date/Time Source Procedure Growth Status 09/29/17 17:55 Blood Peripheral Aerobic Blood Culture - Final Streptococcus Pneumoniae Complete 09/29/17 17:55 Anaerobic Blood Culture - Final Streptococcus Pneumoniae Complete 09/30/17 11:30 Cerebral Spinal Fluid Lumbar Puncture Gram Stain - Final Complete 09/30/17 11:30 Cerebral Spinal Fluid Lumbar Puncture CSF Culture - Final NO GROWTH IN 72 HOURS Complete 09/29/17 18:00 Nasal Aspirate Influenza Types A,B Antigen (CYNTHIA) - Final NEGATIVE FOR FLU A AND B ANTIGEN.... Complete 10/02/17 04:40 Urine Catheterized Urine Urine Culture - Final NO GROWTH IN 24 HOURS. Complete Imaging Last Impressions Chest X-Ray 10/08/17 0600 Signed Impressions: Service Date/Time: Sunday, October 08, 2017 04:19 - CONCLUSION: Slight interval worsening in aeration Jordy Levin MD Brain MRI 10/01/17 0000 Signed Impressions: Service Date/Time: Sunday, October 01, 2017 16:08 - CONCLUSION: Widespread punctate subacute infarctions involving multiple vasculature territories bilaterally. Jordy Levin MD Head CT 09/29/17 0000 Signed Impressions: Service Date/Time: Friday, September 29, 2017 21:16 - CONCLUSION: Probable ischemic changes in as described above. MRI would be of benefit. Jon Plata MD FACR Abdomen/Pelvis CT 09/29/17 0000 Signed Impressions: Service Date/Time: Friday, September 29, 2017 21:19 - CONCLUSION: Do not see the etiology of fever with altered mental status.. Diverticuli sigmoid colon without diverticulitis. No gallstones Jon Plata MD FACR Objective Remarks GENERAL: 72 YO AAF currently orotracheally intubated SKIN: Warm and dry. No rash HEAD: Atraumatic. Normocephalic. EYES: Pupils equal and round about 1 mm bilaterally and pinpoint. No scleral icterus. No injection or drainage. ENT: No nasal bleeding or discharge. Mucous membranes pink and moist. NECK: Trachea midline. No JVD. CARDIOVASCULAR: Regular rate and rhythm. S1, S2 no S4. II/ systolic murmur RESPIRATORY: Clear to auscultation. Breath sounds equal bilaterally. GASTROINTESTINAL: Abdomen soft, non-tender, nondistended. Hypoactive bowel sounds are appreciated MUSCULOSKELETAL: Extremities with trace bilateral lower extremity edema. No obvious deformities. NEUROLOGICAL: Spontaneously moves right and upper lower extremity. Opens eyes to voice. Withdraws to left upper and lower extremity. Vascular Central Line Catheter: Yes Assessment to: Continue Date of Insertion: Oct 02, 2017 Line: Central Venous Catheter Side: Right Location: Subclavian A/P Assessment and Plan Neuro/Psych: Acute bilateral CVA Bacterial meningitis Dementia Depression/anxiety Elevated intraocular pressures Currently on currently off all sedation Acetaminophen 650 mg by tube every 6 hours. Fever Latanoprost 0.005% 1 drop each eye at night CT brain on admission revealed ischemic change anterior limb of internal capsule left side. MRI brain 10/01 revealed widespread bilateral subacute infarction largest in the left parietal occipital region. 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 Continue donepezil 10 mg p.o. daily Cardiovascular: History of hypertension Moderate MR Holding amlodipine 10 mg daily/home medication for hypertension. Resume clinically indicated 2D echocardiogram revealed EF 75%. LVH. Moderate MR. Mild TR/FL On atorvastatin 10 mg daily for dyslipidemia Pulmonary: Acute respiratory failure PRVC 16/500/1.2/5/40 Ventilator bundle Albuterol/ipratropium aerosols every 6 hours with albuterol aerosols every 2 hours as needed for dyspnea PSV trials daily GI/liver: Hypoalbuminemia Descending colon Diverticulosis Upper GI bleed - stomach there was a 1 cm ulcer in the antrum clean based no visible vessel no active bleeding Currently n.p.o. Previously on Nepro goal 45 cc now. Nutrition recommended vital high-protein 65 cc an hour. Pantoprazole drip at 8 mg an hour status post 80 mg IV bolus Docusate sodium/senna 1 tablet twice daily for bowel regimen GI consult. EGD 10/07 revealed 1 cm ulcer in the antrum of stomach without active bleeding. Biopsies currently pending. Repeat EGD [address] abdomen/pelvis revealed descending colon diverticulosis. No diverticulitis. Renal/: Acute kidney injury No hydronephrosis Urine eosinophils negative. Intrinsic renal by urine electrolytes Followed by nephrology. Currently on one half normal saline at 70 cc an hour Holding furosemide in light of the GI bleed. Resume clinically indicated.. ID: Strep pneumonia bacteremia/meningitis Continue antibiotic coverage per Dr. Nelson from ID. Currently on IV ceftriaxone 2 g IV every 12 hours per ID 14 days total, Vancomycin stopped . 09/29 blood cultures growing strep pneumo 4 out of 4 bottles. 09/30 -CSF -no growth HSV PCR negative Endocrine: Sliding scale insulin Accu-Cheks every 6 hours to maintain euglycemia with Novulog low regimen Heme: Leukocytosis Microcytic anemia -acute blood loss Follow CBC. Follow trends Transfused 5 units PRBCs past 24 hours Serial hemoglobins FEN: Hypokalemia Hyperphosphatemia 20 meq KCl IV 1 now. Recheck this afternoon MSK: Osteoarthritis Elevated BMI Positive KAREL -1: 40/speckled Holding meloxicam 7.5 mg p.o. daily. PT evaluate and treat Confirmatory KAREL test ordered. Noted that 20% of all women have weakly positive KAREL's that do not convert to lupus/ Prophylaxis: Pantoprazole drip/SCDs. Subcutaneous heparin 5000 units every 12 hours held in light of GI bleed Lines: Right subclavian central line placed 10/02. Explained current clinical status with patient's daughter at bedside in detail including plan of care and she voiced understanding and was agreeable. Level 3 follow-up Bobby Machado MD Oct 08, 2017 21:42
[2017-10-08] MEDS ORDERED: POTASSIUM CHLORIDE 20 MEQ PWD PACKET PO ONE (21:45)
[2017-10-08] MEDS ORDERED: RESP: ALBUTEROL 2.5 MG/3 ML NEB (PRN) NEB (22:00)
[2017-10-08] MEDS: SODIUM CHLOR 0.45% 1000 ML INJ 1,000 ML IV SCH (22:00)
[2017-10-09] VITALS (17 sets, daily range): BP systolic 124–148; BP diastolic 55–95; PULSE 66–80; RESP 16–25; TEMP 98.8–99.9; O2SAT 94–100
[2017-10-09] MEDS: cefTRIAXone INJ 2,000 MG in SODIUM CHLORIDE 0.9% INJ 100 ML IV SCH ×2 (01:57→12:28)
[2017-10-09 05:43] LABS: HEMATOCRIT 28.8 % (35.0-46.0); HEMOGLOBIN 9.7 GM/DL (11.6-15.3); MEAN CELL VOLUME 82.6 FL (80.0-100.0); MEAN CORPUSCULAR HEMOGLOBIN 27.9 PG (27.0-34.0); MEAN CORPUSCULAR HGB CONC 33.8 % (32.0-36.0); MEAN PLATELET VOLUME 8.6 FL (7.0-11.0); PLATELET COUNT 298 TH/MM3 (150-450); RED BLOOD COUNT 3.48 MIL/MM3 (4.00-5.30); RED CELL DISTRIBUTION WIDTH 15.4 % (11.6-17.2); WHITE BLOOD COUNT 18.8 TH/MM3 (4.0-11.0)
[2017-10-09] MEDS: PANTOPRAZOLE INJ 80 MG in SODIUM CHLORIDE 0.9% INJ 100 ML IV SCH ×2 (06:00→17:20)
[2017-10-09] MEDS: ARTIFICIAL TEARS OPTH SOLN 15 ML BTL EACH EYE SCH ×3 (06:00→22:00)
[2017-10-09] MEDS: INSULIN ASPART SUPPLEMENTAL SCALE SQ SCH ×3 (06:00→12:00)
[2017-10-09 06:11] LABS: CALCIUM 8.6 MG/DL (8.5-10.1); CREATININE 6.3 MG/DL (0.50-1.00); MAGNESIUM 2.2 MG/DL (1.5-2.5)
[2017-10-09] MEDS: CHLORHEXIDINE 0.12% (ORAL KIT) 15 ML CUP MT SCH ×2 (08:46→20:09)
[2017-10-09] MEDS: ATENOLOL 25 MG TAB PO SCH (08:46)
[2017-10-09] MEDS: DOCUSATE SODIUM 50 MG/SENNA 8.6 MG TAB PO SCH ×2 (08:46→21:00)
[2017-10-09] MEDS: SODIUM CHLORIDE 0.9% FLUSH 10 ML FLUSH IV FLUSH SCH ×2 (08:47→21:55)
--- NOTE | 2017-10-09 09:12 | HHI.PR ---
Review/Management Daily Summary 10/09 seen this am spoke with her daughter at bedside no sedation per RN vent, cpap tried yesterday moves to stim but more motor response right than left pupils small and reactive meningitis, plan mri brain for addtl prognostic information Subjective Subjective Comments No seizure daughter at bedside Active Medications Current Medications Medications (Trade) Dose Ordered Sig/Ganesh Route Start Time Stop Time Status Last Admin (Aspirin Chew) 81 mg DAILY PO 09/30/17 09:00 Future Hold 10/06/17 09:04 (Lipitor) 10 mg HS PO 09/30/17 21:00 10/08/17 19:53 (D50w (Vial) Inj) 50 ml UNSCH PRN IV PUSH 09/29/17 22:15 (Glucagon Inj) 1 mg UNSCH PRN OTHER 09/29/17 22:15 (NS Flush) 2 ml UNSCH PRN IV FLUSH 09/29/17 22:15 (NS Flush) 2 ml BID IV FLUSH 09/30/17 09:00 10/09/17 08:47 (Zofran Inj) 4 mg Q6H PRN IVP 09/29/17 22:15 (Megan-Colace) 1 tab BID PO 09/30/17 09:00 10/09/17 08:46 (Senokot) 17.2 mg Q12H PRN PO 09/29/17 22:15 (Dulcolax Supp) 10 mg DAILY PRN RECTAL 09/29/17 22:15 (Lactulose Liq) 30 ml DAILY PRN PO 09/29/17 22:15 (Peridex 0.12% Liq) 15 ml BID@08,20 MT 09/30/17 20:00 10/09/17 08:46 Propofol 100 ml @ 2.7 mls/hr TITRATE PRN IV 09/30/17 10:30 10/03/17 01:40 Ceftriaxone Sodium 2000 mg/ Sodium Chloride 100 ml @ 200 mls/hr Q12H IV 10/03/17 01:00 10/16/17 00:59 10/09/17 01:57 (Aricept) 10 mg HS PO 10/03/17 21:00 10/08/17 19:53 (Xalatan 0.005% Opth Soln) 1 drop HS EACH EYE 10/03/17 21:00 4/2/18 20:17 (NovoLOG SUPPLEMENTAL SCALE) 1 Q6HR SQ 10/03/17 12:00 10/04/17 12:00 (Tylenol 650 Mg/ 20 ml Liq) 650 mg Q6H PRN NG 10/03/17 08:30 10/04/17 21:19 (Tears Naturale Opth Soln) 1 drop Q8HR EACH EYE 10/03/17 14:00 10/09/17 06:00 (Heparin Inj) 5,000 units Q12HR SQ 10/03/17 09:00 Future Hold 10/06/17 09:05 (Trandate Inj) 10 mg Q1H PRN IV PUSH 10/05/17 11:00 (Catapres) 0.1 mg Q6H PRN NG 10/05/17 11:00 10/08/17 20:39 (Tenormin) 12.5 mg DAILY PO 10/06/17 09:00 10/09/17 08:46 (Pill Splitter) 1 ea UNSCH PRN OTHER 10/05/17 11:15 (Lasix Inj) 40 mg DAILY@0900,1800 IV PUSH 10/06/17 18:00 Future Hold 10/07/17 10:33 Pantoprazole Sodium 80 mg/ Sodium Chloride 100 ml @ 10 mls/hr Q10H IV 10/07/17 14:00 10/09/17 06:00 (Albuterol Neb) 2.5 mg Q2HR NEB PRN NEB 10/08/17 22:00 Sodium Chloride 1,000 ml @ 70 mls/hr [id number] IV 10/08/17 22:00 10/08/17 22:00 Allergies Allergies Coded Allergies No Known Allergies (Verified Allergy, Unknown, 09/29/17) Exam I&O / VS Vital Signs Date Time Temp Pulse Resp B/P (MAP) Pulse Ox O2 Delivery O2 Flow Rate FiO2 10/09/17 06:00 79 10/09/17 04:00 99.9 69 25 148/71 (96) 97 10/09/17 04:00 69 10/09/17 04:00 40 10/09/17 03:49 96 40 10/09/17 02:00 70 10/09/17 00:50 99 40 10/09/17 00:00 69 10/09/17 00:00 98.8 69 19 140/67 (91) 98 10/09/17 00:00 40 10/08/17 22:00 69 10/08/17 21:53 96 40 10/08/17 20:00 40 10/08/17 20:00 99.3 74 22 167/79 (108) 97 10/08/17 20:00 69 10/08/17 19:00 95 Mechanical Ventilator 40 10/08/17 18:00 60 10/08/17 16:28 95 40 10/08/17 16:00 40 10/08/17 16:00 66 10/08/17 16:00 98.4 65 24 150/67 (94) 95 10/08/17 14:00 64 10/08/17 12:59 93 40 10/08/17 12:00 69 10/08/17 12:00 99.0 69 24 158/87 (110) 92 10/08/17 12:00 40 10/08/17 11:00 40 10/08/17 10:00 69 Objective Micro and Labs Laboratory Tests Test 10/08/17 13:00 10/09/17 05:00 10/09/17 05:20 Nasal Screen MRSA (PCR) NEGATIVE Staphylococcus aureus (PCR)(LAB) NEGATIVE White Blood Count 18.8 Red Blood Count 3.48 Hemoglobin 9.7 Hematocrit 28.8 Mean Corpuscular Volume 82.6 Mean Corpuscular Hemoglobin 27.9 Mean Corpuscular Hemoglobin Concent 33.8 Red Cell Distribution Width 15.4 Platelet Count 298 Mean Platelet Volume 8.6 Blood Urea Nitrogen 125 Creatinine 6.30 Random Glucose 98 Calcium Level 8.6 Phosphorus Level 7.0 Magnesium Level 2.2 Sodium Level 148 Potassium Level 3.1 Chloride Level 110 Carbon Dioxide Level 19.0 Anion Gap 19 Estimat Glomerular Filtration Rate 8 Date/Time Source Procedure Growth Status 09/29/17 17:55 Blood Peripheral Aerobic Blood Culture - Final Streptococcus Pneumoniae Complete 09/29/17 17:55 Anaerobic Blood Culture - Final Streptococcus Pneumoniae Complete 09/30/17 11:30 Cerebral Spinal Fluid Lumbar Puncture Gram Stain - Final Complete 09/30/17 11:30 Cerebral Spinal Fluid Lumbar Puncture CSF Culture - Final NO GROWTH IN 72 HOURS Complete 09/29/17 18:00 Nasal Aspirate Influenza Types A,B Antigen (CYNTHIA) - Final NEGATIVE FOR FLU A AND B ANTIGEN.... Complete 10/02/17 04:40 Urine Catheterized Urine Urine Culture - Final NO GROWTH IN 24 HOURS. Complete Fly Jimenez MD Oct 09, 2017 09:12
--- NOTE | 2017-10-09 10:41 | HHI.NPPN ---
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 Patient unable to provide any history at this time, history obtained from records and and daughter. UA positive for UTI. CXR possible mild failure without consolidation. CT Abdomen/Pelvis no acute findings. CT Head probable ischemic changes anterior limb internal capsule on the left. Patient is intubated FiO2 at 40 %. BC with streptococcus pneumoniae. Patient has received vancomycin and Rocephin. Nephrology is consulted for acute change in renal function with a creatinine of 2.76 with a drop in UOP at 300 ml over 24 hours. Patient is also noted to have a CO2 level of 16.8 this morning and is on a sodium bicarbonate gtt. Per the daughter patient has not history of kidney disease and has not been followed by a federal judge in the past. Patient admission creatinine was 0.83. Additional Remarks Patient remain on the vent. DTR at bedside. Some improvement noted in creatinine at 6.30 today from 6.50. (Charissa Jones) Review of Systems General General Remarks Unable to ROS patient is intubated (Charissa Jones) Objective Data Data Vital Signs Date Time Temp Pulse Resp B/P (MAP) Pulse Ox O2 Delivery O2 Flow Rate FiO2 10/09/17 06:00 79 10/09/17 04:00 99.9 69 25 148/71 (96) 97 10/09/17 04:00 69 10/09/17 04:00 40 10/09/17 03:49 96 40 10/09/17 02:00 70 10/09/17 00:50 99 40 10/09/17 00:00 69 10/09/17 00:00 98.8 69 19 140/67 (91) 98 10/09/17 00:00 40 10/08/17 22:00 69 10/08/17 21:53 96 40 10/08/17 20:00 40 10/08/17 20:00 99.3 74 22 167/79 (108) 97 10/08/17 20:00 69 10/08/17 19:00 95 Mechanical Ventilator 40 10/08/17 18:00 60 10/08/17 16:28 95 40 10/08/17 16:00 40 10/08/17 16:00 66 10/08/17 16:00 98.4 65 24 150/67 (94) 95 10/08/17 14:00 64 10/08/17 12:59 93 40 10/08/17 12:00 69 10/08/17 12:00 99.0 69 24 158/87 (110) 92 10/08/17 12:00 40 10/08/17 11:00 40 (Charissa Jones) -: 10/09/17 0500 10/09/17 0520 Tubes & Lines: Villanueva (Charissa Jones) Physical Exam General Appearance: No Acute Distress Appearance Remarks intubated (Charissa Jones) Pulmonary Resp Exam: Breath Sounds Equal, No Distress, Diminished Breath Sounds (Charissa Jones) Cardiology CV Exam: Regular (Charissa Jones) Gastrointestinal/Abdomen GI Exam: Soft, Non-Tender, Distended (Charissa Jones) Genitourinary Exam: Flank Non-Tender Remarks indwelling villanueva catheter (Charissa Jones) Integumentary Skin Exam: Clear, Warm (Charissa Jones) Extremeties Extremities Exam: Moderate Edema, Pitting Edema, Dependent Edema (Charissa Jones) Neurologic Neuro Exam: Sedated (Charissa Jones) Assessment/Plan Discussed Condition With: Patient, Daughter Assessment Summary: SEVERINO/Acute Renal Failure Electrolyte Assessment: Hypokalemia Problem List: (1) SEVERINO (acute kidney injury) ICD Codes: N17.9 - Acute kidney failure, unspecified Plan: SEVERINO possible ATN with a FeNA of 18. Possible related to [place] or infection. Baseline creatinine is less than [address] of abdomen: Nonobstructing 7 mm right renal stone noted. Plan Continue IVF Maintain Strict I+O Monitor UOP and BMP Avoid nephrotoxins when possible Creatinine slightly improved at 6.30 from 6.55 will continue to monitor since good UOP No urgent indication of Dialysis at present K 3.1 Replacement ordered for potassium. (2) Bacteremia ICD Codes: R78.81 - Bacteremia Plan: continue antibiotics renal dosing. (3) Hypertension, essential ICD Codes: I10 - Hypertension, essential Status: Acute Plan: Well controlled. (4) CVA (cerebral vascular accident) ICD Codes: I63.9 - Cerebral infarction, unspecified Plan: Neurology consulted and managing. MRI ordered for today (Charissa Jones) Problem List: (1) SEVERINO (acute kidney injury) ICD Codes: N17.9 - Acute kidney failure, unspecified Plan: SEVERINO possible ATN with a FeNA of 18. Possible related to [place] or infection. Baseline creatinine is less than [address] of abdomen: Nonobstructing 7 mm right renal stone noted. Plan Continue IVF Maintain Strict I+O Monitor UOP and BMP Avoid nephrotoxins when possible Creatinine slightly improved at 6.30 from 6.55 will continue to monitor since good UOP No urgent indication of Dialysis at present K 3.1 Replacement ordered for potassium. Patient seen and examined, agree with above. Creatinine slightly improving, will hold Dialysis for now. D/W the daughter at bed side. (2) Bacteremia ICD Codes: R78.81 - Bacteremia Plan: continue antibiotics renal dosing. (3) Hypertension, essential ICD Codes: I10 - Hypertension, essential Status: Acute Plan: Well controlled. (4) CVA (cerebral vascular accident) ICD Codes: I63.9 - Cerebral infarction, unspecified Plan: Neurology consulted and managing. MRI ordered for today (Kingston Kirby MD) Charissa Jones Oct 09, 2017 10:41 Kingston Kirby MD Oct 09, 2017 18:46
[2017-10-09] MEDS ORDERED: POTASSIUM BICARBONATE 25 MEQ EFFERVESCENT TAB NG ONE ×2 (10:45→12:30)
[2017-10-09] MEDS: SODIUM CHLOR 0.45% 1000 ML INJ 1,000 ML IV SCH (16:45)
[2017-10-09] MEDS ORDERED: POTASSIUM CHLORIDE INJ 30 MEQ in SODIUM CHLORIDE 0.9% INJ 100 ML IV-CENTRAL ONE (19:45)
--- NOTE | 2017-10-09 19:57 | HHI.CCPN ---
Subjective Remarks/Hospital Course 09/29: This is a 72-year-old female with a PMH of Anxiety, Depression, Dementia and HTN who is brought to the ER by Neonatal Doctor secondary to AMS and fever of 102. 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 On arrival, BP 134/64, HR 104, O2 sat 97% on RA, Temp 100.8. WBC 18.4. BUN 21. GFR 82. Lactic Acid normal. UA positive for UTI. CXR possible mild failure without consolidation. CT Abdomen/Pelvis no acute findings. CT Head probable ischemic changes anterior limb internal capsule on the left. S/p Blood Cultures positive for gram + cocci 10/10 bottles, Rocephin now, add Vancomycin. 09/30: Continued high grade fever, increasing leukocytosis. Brought to [facility] for labored tachypnea. She is clenching her jaw and possibly seizing. Will intubate and ventilate for airway protection, proceed directly to lumbar puncture, broaden abx coverage. 10/01: Patient intubated and placed on mechanical ventilation yesterday. Underwent lumbar puncture which showed cloudy CSF with CSF studies consistent with bacterial meningitis. Blood cultures with strep pneumo. Patient has already been evaluated by BERNARD Nelson. Currently remains sedated, orally intubated on mechanical ventilation. 10/02: Remains sedated, orally intubated on mechanical ventilation. Tolerating tube feeds. 10/03: Tolerated CPAP trial 2 hours yesterday. Back on propofol drip for sedation. Minimal urine output overnight. Tolerating tube feeding. 10/04: T-max 99.8. 350 cc urine output past 24 hours. 100 cc stool. Withdraws bilateral upper and lower extremities. Grasp. Positive gag and cough. Positive corneal reflex 10/05: Afebrile. 875 cc urine output past 24 hours. 1600 cc stool. Opens eyes. Spontaneously moving right lower extremity 10/06: Afebrile. 1300 cc urine overnight. 700 cc stools. Opens eyes. Spontaneously moves right upper and lower extremity. Withdraws to left upper lower extremity. Yawns. 10/07: Currently resting in bed in no acute distress. No active issues overnight. 10/08: EGD revealed solitary ulcer not actively bleeding. Hemoglobin remained stable. Status post 5 units PRBCs. Slowly more alert and awake. Subjective 10/09: Tube feeds resumed today. Plan for MRI brain for further prognostication per neurology. Adding free water replacement potassium currently. Arousable and opens eyes to voice. Moves bilateral lower extremity spontaneously. Patient will briefly grasp hands bilaterally but not follow commands. Objective Vital Signs Date Time Temp Pulse Resp B/P (MAP) Pulse Ox O2 Delivery O2 Flow Rate FiO2 10/09/17 18:00 77 10/09/17 16:26 95 40 10/09/17 16:00 99.9 16 124/55 (78) 10/09/17 08:00 Mechanical Ventilator 10/07/17 19:00 2.00 Intake and Output 10/09/17 10/09/17 10/09/17 07:59 15:59 23:59 Intake Total 100 ml 100 ml Output Total 1500 ml 2000 ml Balance -1400 ml -1900 ml Result Diagram: 10/09/17 0500 10/09/17 0520 Other Results Microbiology Date/Time Source Procedure Growth Status 09/29/17 17:55 Blood Peripheral Aerobic Blood Culture - Final Streptococcus Pneumoniae Complete 09/29/17 17:55 Anaerobic Blood Culture - Final Streptococcus Pneumoniae Complete 09/30/17 11:30 Cerebral Spinal Fluid Lumbar Puncture Gram Stain - Final Complete 09/30/17 11:30 Cerebral Spinal Fluid Lumbar Puncture CSF Culture - Final NO GROWTH IN 72 HOURS Complete 09/29/17 18:00 Nasal Aspirate Influenza Types A,B Antigen (CYNTHIA) - Final NEGATIVE FOR FLU A AND B ANTIGEN.... Complete 10/02/17 04:40 Urine Catheterized Urine Urine Culture - Final NO GROWTH IN 24 HOURS. Complete Imaging Last Impressions Chest X-Ray 10/08/17 0600 Signed Impressions: Service Date/Time: Sunday, October 08, 2017 04:19 - CONCLUSION: Slight interval worsening in aeration Jordy Levin MD Brain MRI 10/01/17 0000 Signed Impressions: Service Date/Time: Sunday, October 01, 2017 16:08 - CONCLUSION: Widespread punctate subacute infarctions involving multiple vasculature territories bilaterally. Jordy Levin MD Head CT 09/29/17 0000 Signed Impressions: Service Date/Time: Friday, September 29, 2017 21:16 - CONCLUSION: Probable ischemic changes in as described above. MRI would be of benefit. Jon Plata MD FACR Abdomen/Pelvis CT 09/29/17 0000 Signed Impressions: Service Date/Time: Friday, September 29, 2017 21:19 - CONCLUSION: Do not see the etiology of fever with altered mental status.. Diverticuli sigmoid colon without diverticulitis. No gallstones Jon Plata MD FACR Objective Remarks GENERAL: 72 YO AAF currently orotracheally intubated SKIN: Warm and dry. No rash HEAD: Atraumatic. Normocephalic. EYES: Pupils equal and round about 2 mm bilaterally and pinpoint. No scleral icterus. No injection or drainage. ENT: No nasal bleeding or discharge. Mucous membranes pink and moist. NECK: Trachea midline. No JVD. CARDIOVASCULAR: Regular rate and rhythm. S1, S2 no S4. II/ systolic murmur RESPIRATORY: Clear to auscultation. Breath sounds equal bilaterally. GASTROINTESTINAL: Abdomen soft, non-tender, nondistended. Hypoactive bowel sounds are appreciated MUSCULOSKELETAL: Extremities with trace bilateral lower extremity edema. No obvious deformities. NEUROLOGICAL: Spontaneously moves right and upper lower extremity. Opens eyes to voice. Withdraws to left upper and lower extremity. Urinary Catheter: Yes Assessment to: Continue Koo insert reason: Prolonged Immobilization Vascular Central Line Catheter: Yes Assessment to: Continue Date of Insertion: Oct 02, 2017 Line: Central Venous Catheter Side: Right Location: Subclavian A/P Assessment and Plan Neuro/Psych: Acute bilateral CVA Bacterial meningitis Dementia Depression/anxiety Elevated intraocular pressures Currently on currently off all sedation Acetaminophen 650 mg by tube every 6 hours as needed fever Latanoprost 0.005% 1 drop each eye at night CT brain on admission revealed ischemic change anterior limb of internal capsule left side. MRI brain 10/01 revealed widespread bilateral subacute infarction largest in the left parietal occipital region. 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 Continue donepezil 10 mg p.o. daily Cardiovascular: History of hypertension Moderate MR Holding amlodipine 10 mg daily/home medication for hypertension. Resume clinically indicated 2D echocardiogram revealed EF 75%. LVH. Moderate MR. Mild TR/WV On atorvastatin 10 mg daily for dyslipidemia Pulmonary: Acute respiratory failure PRVC 16/500/1.2/5/40 Ventilator bundle Albuterol/ipratropium aerosols every 6 hours with albuterol aerosols every 2 hours as needed for dyspnea PSV trials daily GI/liver: Hypoalbuminemia Descending colon Diverticulosis Upper GI bleed - stomach there was a 1 cm ulcer in the antrum clean based no visible vessel no active bleeding Resuming Nepro goal 35 cc now which is nutrition's current recommendations Pantoprazole drip at 8 mg an hour status post 80 mg IV bolus be changed to 40 mg IV twice daily today Docusate sodium/senna 1 tablet twice daily for bowel regimen GI consult. EGD 10/07 revealed 1 cm ulcer in the antrum of stomach without active bleeding. Biopsies currently pending. Repeat EGD [address] abdomen/pelvis revealed descending colon diverticulosis. No diverticulitis. Renal/: Acute kidney injury No hydronephrosis Urine eosinophils negative. Intrinsic renal by urine electrolytes Followed by nephrology. Currently on free water 200 cc every 4 hours Holding furosemide in light of the GI bleed. Resume clinically indicated.. ID: Strep pneumonia bacteremia/meningitis Continue antibiotic coverage per Dr. Nelson from ID. Currently on IV ceftriaxone 2 g IV every 12 hours per ID 14 days total, Vancomycin stopped . 09/29 blood cultures growing strep pneumo 4 out of 4 bottles. 09/30 -CSF -no growth HSV PCR negative Endocrine: Sliding scale insulin Accu-Cheks every 6 hours to maintain euglycemia with Novulog low regimen Heme: Leukocytosis Microcytic anemia -acute blood loss Follow CBC. Follow trends Transfused 5 units PRBCs past 24 hours Serial hemoglobins FEN: Hypokalemia Hyperphosphatemia Hypernatremia 30 meq KCl IV 1 now. Recheck this afternoon MSK: Osteoarthritis Elevated BMI Positive KAREL -1: 40/speckled Holding meloxicam 7.5 mg p.o. daily. PT evaluate and treat Confirmatory KAREL test ordered. Noted that 20% of all women have weakly positive KAREL's that do not convert to lupus/ Prophylaxis: Pantoprazole/SCDs. Subcutaneous heparin 5000 units every 12 hours held in light of GI bleed Lines: Right subclavian central line placed 10/02. Explained current clinical status with patient's daughter at bedside in detail including plan of care and she voiced understanding and was agreeable. Level 3 follow-up Bobby Machado MD Oct 09, 2017 19:57
[2017-10-09] MEDS: PANTOPRAZOLE SODIUM 40 MG VIAL IV PUSH SCH (21:53)
[2017-10-09] MEDS: ATORVASTATIN 10 MG TAB PO SCH (21:53)
[2017-10-09] MEDS: DONEPEZIL HCL 5 MG TAB PO SCH (21:53)
[2017-10-09] MEDS: FREE WATER G-TUBE SCH (21:54)
--- NOTE | 2017-10-09 21:54 | RADRPT ---
EXAM DATE/TIME: 10/09/2017 21:10 [facility] COMPARISON: No previous studies available for comparison. INDICATIONS : Meningitis. Unknown fevers. MEDICAL HISTORY : Hypertension. SURGICAL HISTORY : Total knee replacement, right. Total knee replacement, left. Vented. ENCOUNTER: Subsequent ACUITY: 2 day PAIN SCORE: Nonresponsive. LOCATION: Bilateral cranial TECHNIQUE: Multiplanar, multisequence MRI of the brain was performed without contrast. FINDINGS: Comparison is October 01. Previously identified multiple punctate infarcts in the posterior fossa and b ilateral hemispheres are generally smaller and less apparent on today's exam. No new areas of infarct ion are identified. On the flair images there is new abnormal signal predominantly in the sulci of both frontal lobes but also involving the parietal lobes bilaterally. There is fluid in the mastoid air cells which has inc reased since October 01. There is no significant mass effect. No hydrocephalus. Remote deep white matte r infarcts noted on the left in the frontal region. CONCLUSION: 1. Previously identified small infarcts in both hemispheres and posterior fossa are either less appar ent or not visible on today's exam compared with October 01. 2. There is new abnormal signal especially on the flair images in both frontal lobes and to a lesser extent in the parietal lobes. Signal abnormalities are predominantly in the sulci but may extend into adjacent luis matter. No contrast was given. Findings could be characteristic of reported history of meningitis superimposed on multiple small infarcts. Mastoid air cell disease has worsened. Vlad Perez MD on October 09, 2017 at 21:45 Board Certified Radiologist. This report was verified electronically.
[2017-10-09] MEDS: LATANOPROST 0.005% OPHT SOLN 2.5 ML BTL EACH EYE SCH (21:55)
[2017-10-10] VITALS (12 sets, daily range): BP systolic 131–165; BP diastolic 70–77; PULSE 66–82; RESP 20–24; TEMP 98.2–98.9; O2SAT 94–100
[2017-10-10] MEDS: cefTRIAXone INJ 2,000 MG in SODIUM CHLORIDE 0.9% INJ 100 ML IV SCH ×2 (01:41→13:03)
[2017-10-10] MEDS: FREE WATER G-TUBE SCH ×4 (01:42→12:00)
[2017-10-10 03:48] LABS: ACTIN AB IGG <20 U
[2017-10-10] MEDS: RESP: ALBUTEROL 2.5 MG/IPRATROPIUM 0.5 MG NEB (SCH) NEB ×3 (05:04→14:27)
[2017-10-10] MEDS: ARTIFICIAL TEARS OPTH SOLN 15 ML BTL EACH EYE SCH ×2 (05:12→14:00)
[2017-10-10] MEDS: INSULIN ASPART SUPPLEMENTAL SCALE SQ SCH ×3 (06:00→12:00)
--- NOTE | 2017-10-10 06:00 | RADRPT ---
EXAM DATE/TIME: 10/10/2017 04:17 [facility] COMPARISON: CHEST SINGLE AP, October 08, 2017, 4:19. INDICATIONS : Shortness of breath. MEDICAL HISTORY : Hypertension. SURGICAL HISTORY : Total knee replacement, right. Total knee replacement, left. Vented. ENCOUNTER: Subsequent ACUITY: 1 month PAIN SCORE: Non-responsive. LOCATION: Bilateral chest FINDINGS: Endotracheal tube, nasogastric tube and right subclavian central line are stable in position. Hazy di ffuse bilateral infiltrates persist. Cardiac contours are stable. CONCLUSION: No significant change Jordy Levin MD on October 10, 2017 at 5:57 Board Certified Radiologist. This report was verified electronically.
[2017-10-10 06:27] LABS: AUTOMATED NEUTROPHIL # 17.6 TH/MM3 (1.8-7.7); BASOPHIL # 0.1 TH/MM3 (0-0.2); BASOPHIL % 0.6 % (0.0-2.0); EOSINOPHIL # 0.4 TH/MM3 (0-0.4); EOSINOPHIL % 1.7 % (0.0-4.0); HEMATOCRIT 30.1 % (35.0-46.0); HEMOGLOBIN 9.9 GM/DL (11.6-15.3); LYMPH % 7.9 % (9.0-44.0); LYMPHOCYTE # 1.6 TH/MM3 (1.0-4.8); MEAN CELL VOLUME 83.4 FL (80.0-100.0); MEAN CORPUSCULAR HEMOGLOBIN 27.5 PG (27.0-34.0); MEAN PLATELET VOLUME 8.4 FL (7.0-11.0); MONO % 3.3 % (0.0-8.0); MONOCYTE # 0.7 TH/MM3 (0-0.9); NEUT % 86.5 % (16.0-70.0); PLATELET COUNT 355 TH/MM3 (150-450); RED BLOOD COUNT 3.61 MIL/MM3 (4.00-5.30); RED CELL DISTRIBUTION WIDTH 15.6 % (11.6-17.2); WHITE BLOOD COUNT 20.4 TH/MM3 (4.0-11.0)
[2017-10-10 06:53] LABS: ALBUMIN 1.5 GM/DL (3.4-5.0); AST (GOT) 28 U/L (15-37); BICARBONATE 19.6 MEQ/L (21.0-32.0); BLOOD UREA NITROGEN 118 MG/DL (7-18); CALCIUM 8.4 MG/DL (8.5-10.1); CHLORIDE 112 MEQ/L (98-107); GLOMERULAR FILTRATION RATE 9 ML/MIN (>89); GLUCOSE,RANDOM 127 MG/DL (74-106); MAGNESIUM 2.1 MG/DL (1.5-2.5); SODIUM (NA) 148 MEQ/L (136-145)
[2017-10-10 06:54] LABS: ALT (GPT) 23 U/L (10-53); PHOSPHORUS 7.7 MG/DL (2.5-4.9)
[2017-10-10 06:56] LABS: ALKALINE PHOSPHATASE 95 U/L (45-117); TOTAL BILIRUBIN ADULT 0.3 MG/DL (0.2-1.0); TOTAL PROTEIN 7.3 GM/DL (6.4-8.2)
[2017-10-10] MEDS: DOCUSATE SODIUM 50 MG/SENNA 8.6 MG TAB PO SCH (09:00)
[2017-10-10] MEDS: CHLORHEXIDINE 0.12% (ORAL KIT) 15 ML CUP MT SCH (09:07)
[2017-10-10] MEDS: SODIUM CHLORIDE 0.9% FLUSH 10 ML FLUSH IV FLUSH SCH (09:07)
[2017-10-10] MEDS: PANTOPRAZOLE SODIUM 40 MG VIAL IV PUSH SCH (09:07)
[2017-10-10] MEDS: ATENOLOL 25 MG TAB PO SCH (09:08)
[2017-10-10 09:52] LABS: DNA ABS DS CRITHIDIA IFA <1 IU/mL; RIBOSOMAL P AB <1.0 NEG AI (<1.0 NEGATIVE); SCL-70 AB <1.0 NEG AI (<1.0 NEGATIVE); SM AB <1.0 NEG AI (<1.0 NEGATIVE); SM/RNP AB <1.0 NEG AI (<1.0 NEGATIVE)
--- NOTE | 2017-10-10 10:32 | HHI.CCPN ---
Subjective Remarks/Hospital Course 09/29: This is a 72-year-old female with a PMH of Anxiety, Depression, Dementia and HTN who is brought to the ER by Chemical Dependency Counselor secondary to AMS and fever of 102. Patient unable to provide any history at this time, history obtained from records and report of underwriting specialist. On arrival, BP 134/64, HR 104, O2 sat 97% on RA, Temp 100.8. WBC 18.4. BUN 21. GFR 82. Lactic Acid normal. UA positive for UTI. CXR possible mild failure without consolidation. CT Abdomen/Pelvis no acute findings. CT Head probable ischemic changes anterior limb internal capsule on the left. S/p Blood Cultures positive for gram + cocci 10/10 bottles, Rocephin now, add Vancomycin. 09/30: Continued high grade fever, increasing leukocytosis. Brought to [facility] for labored tachypnea. She is clenching her jaw and possibly seizing. Will intubate and ventilate for airway protection, proceed directly to lumbar puncture, broaden abx coverage. 10/01: Patient intubated and placed on mechanical ventilation yesterday. Underwent lumbar puncture which showed cloudy CSF with CSF studies consistent with bacterial meningitis. Blood cultures with strep pneumo. Patient has already been evaluated by BERNARD Nelson. Currently remains sedated, orally intubated on mechanical ventilation. 10/02: Remains sedated, orally intubated on mechanical ventilation. Tolerating tube feeds. 10/03: Tolerated CPAP trial 2 hours yesterday. Back on propofol drip for sedation. Minimal urine output overnight. Tolerating tube feeding. 10/04: T-max 99.8. 350 cc urine output past 24 hours. 100 cc stool. Withdraws bilateral upper and lower extremities. Grasp. Positive gag and cough. Positive corneal reflex 10/05: Afebrile. 875 cc urine output past 24 hours. 1600 cc stool. Opens eyes. Spontaneously moving right lower extremity 10/06: Afebrile. 1300 cc urine overnight. 700 cc stools. Opens eyes. Spontaneously moves right upper and lower extremity. Withdraws to left upper lower extremity. Yawns. 10/07: Currently resting in bed in no acute distress. No active issues overnight. 10/08: EGD revealed solitary ulcer not actively bleeding. Hemoglobin remained stable. Status post 5 units PRBCs. Slowly more alert and awake. 10/09: Tube feeds resumed today. Plan for MRI brain for further prognostication per neurology. Adding free water replacement potassium currently. Arousable and opens eyes to voice. Moves bilateral lower extremity spontaneously. Patient will briefly grasp hands bilaterally but not follow commands. Subjective 10/10: Cr downtrended slightly. tube feeds resumed and tolerating. MRI with cortical enhancement c/w diagnosis of meningitis. continue free water replacement. family looking at LTAC level care. Objective Vital Signs Date Time Temp Pulse Resp B/P (MAP) Pulse Ox O2 Delivery O2 Flow Rate FiO2 10/10/17 08:11 50 10/10/17 08:02 95 10/10/17 08:00 82 10/10/17 08:00 98.9 20 165/77 (106) 10/10/17 08:00 Mechanical Ventilator 10/09/17 19:00 2.00 Intake and Output 10/10/17 10/10/17 10/11/17 08:00 16:00 00:00 Intake Total 1047 ml Output Total 1250 ml Balance -203 ml Result Diagram: 10/10/17 0615 10/10/17 0615 Imaging Last Impressions Chest X-Ray 10/08/17 0600 Signed Impressions: Service Date/Time: Sunday, October 08, 2017 04:19 - CONCLUSION: Slight interval worsening in aeration Jordy Levin MD Brain MRI 10/01/17 0000 Signed Impressions: Service Date/Time: Sunday, October 01, 2017 16:08 - CONCLUSION: Widespread punctate subacute infarctions involving multiple vasculature territories bilaterally. Jordy Levin MD Head CT 09/29/17 0000 Signed Impressions: Service Date/Time: Friday, September 29, 2017 21:16 - CONCLUSION: Probable ischemic changes in as described above. MRI would be of benefit. Jon Plata MD FACR Abdomen/Pelvis CT 09/29/17 0000 Signed Impressions: Service Date/Time: Friday, September 29, 2017 21:19 - CONCLUSION: Do not see the etiology of fever with altered mental status.. Diverticuli sigmoid colon without diverticulitis. No gallstones Jon Plata MD FACR Objective Remarks GENERAL: 72 YO AAF currently orotracheally intubated SKIN: Warm and dry. No rash HEAD: Atraumatic. Normocephalic. EYES: Pupils equal and round about 2 mm bilaterally and pinpoint. No scleral icterus. No injection or drainage. ENT: No nasal bleeding or discharge. Mucous membranes pink and moist. NECK: Trachea midline. No JVD. CARDIOVASCULAR: Regular rate and rhythm. sinus RESPIRATORY: equal chest rise. PRVC. 40% fio2. GASTROINTESTINAL: Abdomen soft, non-tender, nondistended. MUSCULOSKELETAL: Extremities with trace bilateral lower extremity edema. No obvious deformities. NEUROLOGICAL: Spontaneously moves right and upper lower extremity. Opens eyes to voice. Withdraws to left upper and lower extremity. Date of Insertion: Oct 02, 2017 Line: Central Venous Catheter Side: Right Location: Subclavian A/P Assessment and Plan Assessment: 72yF with strep pneumo meningitis and associated acute encephalopathy, respiratory failure, kidney injury. small improvements overall, but very deconditioned. LTAC level care very much appropriate. had long discussion with family: inpatient rehab is a good option in the future, but not attainable at the present time. SNF level care would likely not progress her care at all, and she will need more aggressive pulmonary rehab-- LTAC is only real option at this point. all problems are clinically improving, although slowly. stable for transfer to LTAC. Neuro/Psych: Acute bilateral CVA Bacterial meningitis Dementia Depression/anxiety Elevated intraocular pressures Currently on currently off all sedation Acetaminophen 650 mg by tube every 6 hours as needed fever Latanoprost 0.005% 1 drop each eye at night CT brain on admission revealed ischemic change anterior limb of internal capsule left side. MRI brain 10/01 revealed widespread bilateral subacute infarction largest in the left parietal occipital region. 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 Continue donepezil 10 mg p.o. daily MRI 10/10 cortical enhancement consistent with meningitis Cardiovascular: History of hypertension Moderate MR Holding amlodipine 10 mg daily/home medication for hypertension. Resume clinically indicated 2D echocardiogram revealed EF 75%. LVH. Moderate MR. Mild TR/NC On atorvastatin 10 mg daily for dyslipidemia Pulmonary: Acute hypoxic and hypercarbic respiratory failure PRVC 16/500/1.2/5/40 Ventilator bundle Albuterol/ipratropium aerosols every 6 hours with albuterol aerosols every 2 hours as needed for dyspnea PSV trials daily GI/liver: Hypoalbuminemia Descending colon Diverticulosis Upper GI bleed - stomach there was a 1 cm ulcer in the antrum clean based no visible vessel no active bleeding Resuming Nepro goal 35 cc now which is nutrition's current recommendations Pantoprazole drip at 8 mg an hour status post 80 mg IV bolus be changed to 40 mg IV twice daily today Docusate sodium/senna 1 tablet twice daily for bowel regimen GI consult. EGD 10/07 revealed 1 cm ulcer in the antrum of stomach without active bleeding. Biopsies currently pending. Repeat EGD [address] abdomen/pelvis revealed descending colon diverticulosis. No diverticulitis. Renal/: Acute kidney injury No hydronephrosis Urine eosinophils negative. Intrinsic renal by urine electrolytes Followed by nephrology. Currently on free water 200 cc every 4 hours Holding furosemide in light of the GI bleed. Resume clinically indicated.. ID: Strep pneumonia bacteremia/meningitis Continue antibiotic coverage per Dr. Nelson from ID. Currently on IV ceftriaxone 2 g IV every 12 hours per ID 14 days total, Vancomycin stopped . 09/29 blood cultures growing strep pneumo 4 out of 4 bottles. 09/30 -CSF -no growth HSV PCR negative Endocrine: Sliding scale insulin Accu-Cheks every 6 hours to maintain euglycemia with Novulog low regimen Heme: Leukocytosis Microcytic anemia -acute blood loss Follow CBC. Follow trends Transfused 5 units PRBCs past 24 hours Serial hemoglobins FEN: Hypokalemia Hyperphosphatemia Hypernatremia 30 meq KCl IV 1 now. Recheck this afternoon MSK: Osteoarthritis Elevated BMI Positive KAREL -1: 40/speckled Holding meloxicam 7.5 mg p.o. daily. PT evaluate and treat Confirmatory KAREL test ordered. Noted that 20% of all women have weakly positive KAREL's that do not convert to lupus/ Prophylaxis: Pantoprazole/SCDs. Subcutaneous heparin 5000 units every 12 hours held in light of GI bleed Lines: Right subclavian central line placed 10/02. Explained current clinical status with patient's daughter at bedside in detail including plan of care and she voiced understanding and was agreeable. Roldan Guzman MD Oct 10, 2017 10:32
--- NOTE | 2017-10-10 11:17 | HHI.NPPN ---
Subjective General Problems: Anemia Renal Failure: Acute History of Present Illness Patient is a 72-year-old female with a PMH of Anxiety, Depression, Dementia and HTN who is brought to the ER by Vocational Technical Education Teacher secondary to AMS and fever of 102. Patient unable to provide any history at this time, history obtained from records and and daughter. UA positive for UTI. CXR possible mild failure without consolidation. CT Abdomen/Pelvis no acute findings. CT Head probable ischemic changes anterior limb internal capsule on the left. Patient is intubated FiO2 at 40 %. BC with streptococcus pneumoniae. Patient has received vancomycin and Rocephin. Nephrology is consulted for acute change in renal function with a creatinine of 2.76 with a drop in UOP at 300 ml over 24 hours. Patient is also noted to have a CO2 level of 16.8 this morning and is on a sodium bicarbonate gtt. Per the daughter patient has not history of kidney disease and has not been followed by a gasfitter in the past. Patient admission creatinine was 0.83. Additional Remarks Patient remain on the vent. DTR at bedside. Continues to have good UOP and and creatinine is improving. (Charissa Jones) Review of Systems General General Remarks Unable to ROS patient is intubated (Charissa Jones) Objective Data Data Vital Signs Date Time Temp Pulse Resp B/P (MAP) Pulse Ox O2 Delivery O2 Flow Rate FiO2 10/10/17 10:00 75 10/10/17 08:11 50 10/10/17 08:02 95 50 10/10/17 08:00 40 10/10/17 08:00 82 10/10/17 08:00 98.9 66 20 165/77 (106) 94 10/10/17 08:00 95 Mechanical Ventilator 40 10/10/17 06:00 72 10/10/17 05:05 100 50 10/10/17 04:00 40 10/10/17 04:00 98.4 80 23 146/74 (98) 100 10/10/17 04:00 76 10/10/17 02:05 100 50 10/10/17 02:00 76 10/10/17 00:00 98.7 73 24 142/70 (94) 100 10/10/17 00:00 40 10/10/17 00:00 72 4/3/18 22:12 96 50 10/09/17 22:00 80 10/09/17 20:30 100 10/09/17 20:00 40 10/09/17 20:00 72 10/09/17 20:00 98.8 72 24 137/70 (92) 95 10/09/17 19:00 95 Mechanical Ventilator 2.00 40 10/09/17 18:00 77 10/09/17 16:26 95 40 10/09/17 16:00 40 10/09/17 16:00 74 10/09/17 16:00 99.9 74 16 124/55 (78) 100 10/09/17 14:00 67 10/09/17 12:00 68 10/09/17 12:00 99.1 68 18 141/76 (97) 96 10/09/17 12:00 40 10/09/17 11:15 40 10/09/17 11:15 94 40 (Charissa Jones) -: 10/10/17 0615 10/10/17 0615 Imaging Last Impressions Chest X-Ray 10/10/17 0600 Signed Impressions: Service Date/Time: Tuesday, October 10, 2017 04:17 - CONCLUSION: No significant change Jordy Levin MD Brain MRI 10/09/17 0000 Signed Impressions: Service Date/Time: Monday, October 09, 2017 21:10 - CONCLUSION: 1. Previously identified small infarcts in both hemispheres and posterior fossa are either less apparent or not visible on today's exam compared with October 01. 2. There is new abnormal signal especially on the flair images in both frontal lobes and to a lesser extent in the parietal lobes. Signal abnormalities are predominantly in the sulci but may extend into adjacent luis matter. No contrast was given. Findings could be characteristic of reported history of meningitis superimposed on multiple small infarcts. Mastoid air cell disease has worsened. Vlad Perez MD Head CT 09/29/17 0000 Signed Impressions: Service Date/Time: Friday, September 29, 2017 21:16 - CONCLUSION: Probable ischemic changes in as described above. MRI would be of benefit. Jon Plata MD FACR Abdomen/Pelvis CT 09/29/17 0000 Signed Impressions: Service Date/Time: Friday, September 29, 2017 21:19 - CONCLUSION: Do not see the etiology of fever with altered mental status.. Diverticuli sigmoid colon without diverticulitis. No gallstones Jon Plata MD FACR Tubes & Lines: Villanueva (Charissa Jones) Physical Exam General Appearance: No Acute Distress Appearance Remarks intubated (Charissa Jones) Pulmonary Resp Exam: Breath Sounds Equal, No Distress, Diminished Breath Sounds (Charissa Jones) Cardiology CV Exam: Regular (Charissa Jones) Gastrointestinal/Abdomen GI Exam: Soft, Non-Tender, Distended (Charissa Jones) Genitourinary Exam: Flank Non-Tender Remarks indwelling villanueva catheter (Charissa Jones) Integumentary Skin Exam: Clear, Warm (Charissa Jones) Extremeties Extremities Exam: Moderate Edema, Pitting Edema, Dependent Edema (Charissa Jones) Neurologic Neuro Exam: Sedated (Charissa Jones) Assessment/Plan Discussed Condition With: Patient, Daughter Assessment Summary: SEVERINO/Acute Renal Failure Electrolyte Assessment: Hypokalemia Problem List: (1) SEVERINO (acute kidney injury) ICD Codes: N17.9 - Acute kidney failure, unspecified Plan: SEVERINO possible ATN with a FeNA of 18. Possible related to [place] or infection. Baseline creatinine is less than [address] of abdomen: Nonobstructing 7 mm right renal stone noted. Plan Continue IVF Free water added 200 ml every 4 hours Maintain Strict I+O Monitor UOP and BMP Avoid nephrotoxins when possible Creatinine improving at 5.80 from 6.30 will continue to hold dialysis for now. (2) Bacteremia ICD Codes: R78.81 - Bacteremia Plan: continue antibiotics renal dosing. (3) Hypertension, essential ICD Codes: I10 - Hypertension, essential Status: Acute Plan: Well controlled. (4) CVA (cerebral vascular accident) ICD Codes: I63.9 - Cerebral infarction, unspecified Plan: Neurology consulted and managing. MRI ordered for today (Charissa Jones) Problem List: (1) SEVERINO (acute kidney injury) ICD Codes: N17.9 - Acute kidney failure, unspecified Plan: SEVERINO possible ATN with a FeNA of 18. Possible related to [place] or infection. Baseline creatinine is less than [address] of abdomen: Nonobstructing 7 mm right renal stone noted. Plan Continue IVF Free water added 200 ml every 4 hours Maintain Strict I+O Monitor UOP and BMP Avoid nephrotoxins when possible Creatinine improving at 5.80 from 6.30 will continue to hold dialysis for now. Patient seen and examined, agree with above. Non oliguric and Creatinine is slightly better. (2) Bacteremia ICD Codes: R78.81 - Bacteremia Plan: continue antibiotics renal dosing. (3) Hypertension, essential ICD Codes: I10 - Hypertension, essential Status: Acute Plan: Well controlled. (4) CVA (cerebral vascular accident) ICD Codes: I63.9 - Cerebral infarction, unspecified Plan: Neurology consulted and managing. MRI ordered for today (Kingston Kirby MD) Charissa Jones Oct 10, 2017 11:16 Kingston Kirby MD Oct 10, 2017 18:03
[2017-10-10 11:51] LABS: C3 SERUM 141 mg/dL (83-193); C4 SERUM 24 mg/dL (15-57); RHEUMATOID FACTOR 59 IU/mL (<14)
[2017-10-10] MEDS ORDERED: Free Water G-TUBE (14:04)
[2017-10-10] MEDS ORDERED: PANT40P IV PUSH (14:04)
[2017-10-10] MEDS ORDERED: LIPI10TA PO (14:04)
[2017-10-10] MEDS ORDERED: ATEN25TA PO (14:04)
[2017-10-10] MEDS ORDERED: NOVOLOGSS SQ (14:04)
--- NOTE | 2017-10-10 14:06 | HHI.DS ---
Discharge Summary Admission Date Sep 29, 2017 at 22:04 Discharge Date: Oct 10, 2017 Admitting Diagnosis CVA, febrile illness, leukocytosis, SIRS, UTI (1) Encephalopathy ICD Code: G93.40 - Encephalopathy, unspecified (2) Sepsis ICD Code: A41.9 - Sepsis, unspecified organism (3) UTI (urinary tract infection) ICD Code: N39.0 - Urinary tract infection, site not specified (4) CVA (cerebral vascular accident) ICD Code: I63.9 - Cerebral infarction, unspecified (5) Bacteremia ICD Code: R78.81 - Bacteremia Brief History This is a 72-year-old female with a PMH of Anxiety, Depression, Dementia and HTN who is brought to the ER by Vision Mixer secondary to AMS and fever of 102. Patient unable to provide any history at this time, history obtained from records and report of pipeline gang supervisor. On arrival, BP 134/64, HR 104, O2 sat 97% on RA, Temp 100.8. WBC 18.4. BUN 21. GFR 82. Lactic Acid normal. UA positive for UTI. CXR possible mild failure without consolidation. CT Abdomen/Pelvis no acute findings. CT Head probable ischemic changes anterior limb internal capsule on the left. S/p Blood Cultures, Rocephin, IVF in ER. CBC/BMP: 10/10/17 0615 10/10/17 0615 Significant Findings Laboratory Tests Test 10/07/17 16:15 10/07/17 22:17 10/08/17 06:00 10/08/17 13:00 Hemoglobin 10.3 GM/DL (11.6-15.3) 10.2 GM/DL (11.6-15.3) 10.0 GM/DL (11.6-15.3) Hematocrit 28.8 % (35.0-46.0) 30.0 % (35.0-46.0) 29.8 % (35.0-46.0) White Blood Count 18.8 TH/MM3 (4.0-11.0) Red Blood Count 3.64 MIL/MM3 (4.00-5.30) Neutrophils (%) (Auto) 85.0 % (16.0-70.0) Lymphocytes (%) (Auto) 8.8 % (9.0-44.0) Neutrophils # (Auto) 16.0 TH/MM3 (1.8-7.7) Blood Urea Nitrogen 128 MG/DL (7-18) Creatinine 6.50 MG/DL (0.50-1.00) Albumin 1.3 GM/DL (3.4-5.0) Phosphorus Level 7.2 MG/DL (2.5-4.9) Sodium Level 146 MEQ/L (136-145) Potassium Level 3.3 MEQ/L (3.5-5.1) Chloride Level 108 MEQ/L (98-107) Anion Gap 17 MEQ/L (5-15) Estimat Glomerular Filtration Rate 8 ML/MIN (>89) Test 10/09/17 05:00 10/09/17 05:20 10/10/17 06:15 White Blood Count 18.8 TH/MM3 (4.0-11.0) 20.4 TH/MM3 (4.0-11.0) Red Blood Count 3.48 MIL/MM3 (4.00-5.30) 3.61 MIL/MM3 (4.00-5.30) Hemoglobin 9.7 GM/DL (11.6-15.3) 9.9 GM/DL (11.6-15.3) Hematocrit 28.8 % (35.0-46.0) 30.1 % (35.0-46.0) Blood Urea Nitrogen 125 MG/DL (7-18) 118 MG/DL (7-18) Creatinine 6.30 MG/DL (0.50-1.00) 5.80 MG/DL (0.50-1.00) Phosphorus Level 7.0 MG/DL (2.5-4.9) 7.7 MG/DL (2.5-4.9) Sodium Level 148 MEQ/L (136-145) 148 MEQ/L (136-145) Potassium Level 3.1 MEQ/L (3.5-5.1) Chloride Level 110 MEQ/L (98-107) 112 MEQ/L (98-107) Carbon Dioxide Level 19.0 MEQ/L (21.0-32.0) 19.6 MEQ/L (21.0-32.0) Anion Gap 19 MEQ/L (5-15) 16 MEQ/L (5-15) Estimat Glomerular Filtration Rate 8 ML/MIN (>89) 9 ML/MIN (>89) Neutrophils (%) (Auto) 86.5 % (16.0-70.0) Lymphocytes (%) (Auto) 7.9 % (9.0-44.0) Neutrophils # (Auto) 17.6 TH/MM3 (1.8-7.7) Random Glucose 127 MG/DL (74-106) Albumin 1.5 GM/DL (3.4-5.0) Calcium Level 8.4 MG/DL (8.5-10.1) PE at Discharge GENERAL: Patient is lying in bed, noncommunicative, arousable, with noticeable right-sided facial droop and rapid respiration rate SKIN: Warm and dry. HEAD: Atraumatic. Normocephalic. EYES: Pupils equal and round. No scleral icterus. No injection or drainage. ENT: No nasal bleeding or discharge. Mucous membranes pink and moist. NECK: Trachea midline. No JVD. CARDIOVASCULAR: Tachycardic rate with holosystolic ejection murmur RESPIRATORY: Rapid respiratory rate with accessory muscle use, breath sounds clear to auscultation bilaterally GASTROINTESTINAL: Abdomen soft, non-tender, nondistended. Hepatic and splenic margins not palpable. MUSCULOSKELETAL: Extremities without clubbing, cyanosis, or edema. No obvious deformities. NEUROLOGICAL: Awake unable to assess alertness as she is nonresponsive and not following commands. Right-sided facial droop. Not moving extremities. Unable to assess strength as she is not following commands. PSYCHIATRIC: Awake but unable to assess any further insight or judgment Hospital Course 09/29: This is a 72-year-old female with a PMH of Anxiety, Depression, Dementia and HTN who is brought to the ER by Vision Mixer secondary to AMS and fever of 102. Patient unable to provide any history at this time, history obtained from records and report of pipeline gang supervisor. On arrival, BP 134/64, HR 104, O2 sat 97% on RA, Temp 100.8. WBC 18.4. BUN 21. GFR 82. Lactic Acid normal. UA positive for UTI. CXR possible mild failure without consolidation. CT Abdomen/Pelvis no acute findings. CT Head probable ischemic changes anterior limb internal capsule on the left. S/p Blood Cultures positive for gram + cocci / bottles, Rocephin now, add Vancomycin. 09/30: Continued high grade fever, increasing leukocytosis. Brought to [facility] for labored tachypnea. She is clenching her jaw and possibly seizing. Will intubate and ventilate for airway protection, proceed directly to lumbar puncture, broaden abx coverage. 10/01: Patient intubated and placed on mechanical ventilation yesterday. Underwent lumbar puncture which showed cloudy CSF with CSF studies consistent with bacterial meningitis. Blood cultures with strep pneumo. Patient has already been evaluated by ID Dr. Nelson. Currently remains sedated, orally intubated on mechanical ventilation. 10/02: Remains sedated, orally intubated on mechanical ventilation. Tolerating tube feeds. 10/03: Tolerated CPAP trial 2 hours yesterday. Back on propofol drip for sedation. Minimal urine output overnight. Tolerating tube feeding. 10/04: T-max 99.8. 350 cc urine output past 24 hours. 100 cc stool. Withdraws bilateral upper and lower extremities. Grasp. Positive gag and cough. Positive corneal reflex 10/05: Afebrile. 875 cc urine output past 24 hours. 1600 cc stool. Opens eyes. Spontaneously moving right lower extremity 10/06: Afebrile. 1300 cc urine overnight. 700 cc stools. Opens eyes. Spontaneously moves right upper and lower extremity. Withdraws to left upper lower extremity. Yawns. 10/07: Currently resting in bed in no acute distress. No active issues overnight. 10/08: EGD revealed solitary ulcer not actively bleeding. Hemoglobin remained stable. Status post 5 units PRBCs. Slowly more alert and awake. 10/09: Tube feeds resumed today. Plan for MRI brain for further prognostication per neurology. Adding free water replacement potassium currently. Arousable and opens eyes to voice. Moves bilateral lower extremity spontaneously. Patient will briefly grasp hands bilaterally but not follow commands. 10/10: Cr downtrended slightly. tube feeds resumed and tolerating. MRI with cortical enhancement c/w diagnosis of meningitis. continue free water replacement. family looking at LTAC level care. accepted at [facility]. transferred in stable condition Pt Condition on Discharge: Stable Discharge Disposition: Trnsfr to Other Facility Discharge Instructions DIET: Follow Instructions for: On Tube Feeding Activities you can perform: Regular-No Restrictions Roldan Guzman MD Oct 10, 2017 14:06
[2017-10-12 03:52] LABS: MITOCHONDRIAL AB NEGATIVE (NEGATIVE); MITOCHONDRIAL AB TITER ND (<1:20)
== END 2017-10-10 16:00 | DRG 870 ==
LOC: NEPE 16:47 → NEDA 22:04 → HOCB 22:40 → N03B 09-30 10:29
PROVIDERS: ADMIT Surgery Surgical Critical Care; ATTEND Surgery Surgical Critical Care
PROC: 5A1955Z Respiratory Ventilation, Greater than 96 Consecutive Hours (ICD-10-PCS; principal; 2017-09-30)
PROC: 0BH17EZ Insertion of Endotracheal Airway into Trachea, Via Natural or Artificial Opening (ICD-10-PCS; 2017-09-30)
PROC: 0T9B70Z Drainage of Bladder with Drainage Device, Via Natural or Artificial Opening (ICD-10-PCS; 2017-09-30)
PROC: 009U3ZX Drainage of Spinal Canal, Percutaneous Approach, Diagnostic (ICD-10-PCS; 2017-09-30)
PROC: 0D9670Z Drainage of Stomach with Drainage Device, Via Natural or Artificial Opening (ICD-10-PCS; 2017-10-01)
PROC: 05H533Z Insertion of Infusion Device into Right Subclavian Vein, Percutaneous Approach (ICD-10-PCS; 2017-10-02)
PROC: 30233N1 Transfusion of Nonautologous Red Blood Cells into Peripheral Vein, Percutaneous Approach (ICD-10-PCS; 2017-10-06)
PROC: 0DB68ZX Excision of Stomach, Via Natural or Artificial Opening Endoscopic, Diagnostic (ICD-10-PCS; 2017-10-07)
DX: A41.9 Sepsis, unspecified organism (principal); I63.9 Cerebral infarction, unspecified; J96.01 Acute respiratory failure with hypoxia; J96.02 Acute respiratory failure with hypercapnia; G00.9 Bacterial meningitis, unspecified; G93.41 Metabolic encephalopathy; N17.9 Acute kidney failure, unspecified; N39.0 Urinary tract infection, site not specified; K92.1 Melena; E87.0 Hyperosmolality and hypernatremia; R65.20 Severe sepsis without septic shock; F03.90 Unspecified dementia, unspecified severity, without behavioral disturbance, psychotic disturbance, mood disturbance, and anxiety; R00.0 Tachycardia, unspecified; M19.90 Unspecified osteoarthritis, unspecified site; F32.9 Major depressive disorder, single episode, unspecified; F41.9 Anxiety disorder, unspecified; I10 Essential (primary) hypertension; Z96.651 Presence of right artificial knee joint; Z90.710 Acquired absence of both cervix and uterus; Z87.891 Personal history of nicotine dependence; K25.7 Chronic gastric ulcer without hemorrhage or perforation; N20.0 Calculus of kidney; E87.6 Hypokalemia; M25.569 Pain in unspecified knee; R01.1 Cardiac murmur, unspecified; E78.5 Hyperlipidemia, unspecified; I08.8 Other rheumatic multiple valve diseases; E88.09 Other disorders of plasma-protein metabolism, not elsewhere classified; K57.30 Diverticulosis of large intestine without perforation or abscess without bleeding; B95.3 Streptococcus pneumoniae as the cause of diseases classified elsewhere; D50.9 Iron deficiency anemia, unspecified; K29.70 Gastritis, unspecified, without bleeding; E83.39 Other disorders of phosphorus metabolism
CPT/HCPCS: 31500; 36430; 36556; 36600; 70450; 70551; 70553; 71045; 74177; 80048; 80053; 80061; 80069; 80202; 81001; 82550; 82552; 82570; 82805; 82945; 82948; 83036; 83516; 83605; 83735; 84100; 84132; 84157; 84300; 84484; 85007; 85014; 85018; 85025; 85027; 85610; 85730; 86021; 86038; 86039; 86160; 86225; 86235; 86255; 86403; 86431; 86850; 86900; 86901; 86920; 87015; 87040; 87070; 87086; 87102; 87116; 87186; 87205; 87206; 87493; 87498; 87529; 87640; 87641; 87804; 88305; 88312; 89051; 93005; 93306; 94002; 94003; 94640; 94664; 95819; A9577; C9113; J0696; J1644; J1815; J1940; J2250; J2370; J3370; J3480; J7030; J7040; J7120; P9016; Q9967